=== PATIENT | male | born 1970 | race Caucasian/White ===

== ENCOUNTER → 2017-06-26 10:56 | Outpatient (CLI) | payer OTHER, SELFPAY ==
--- NOTE | 2017-06-26 11:02 | XR_ITS ---
XR chest 2V HISTORY: Cough, congestion, fever ITS.REASON: COUGH,FEVERBONE MARROW TRANSPLANT STATUS ORDERING PHYSICIAN: Bobbi Berrios PATIENT AGE: 46 years COMPARISON: 11/04/2015 FINDINGS: The cardiomediastinal silhouette and pulmonary vascularity are within normal limits. The lungs are clear without infiltrates, suspicious nodules, or pleural effusions. Calcified granuloma right upper lobe No acute bony abnormalities. IMPRESSION: No change with no acute finding
[2017-06-26 11:30] LABS: Adenovirus,PCR Not Detected (NotDetected); Bordetella Pertussis Not Detected (NotDetected); Chlamydophila Pneumoniae, PCR Not Detected (NotDetected); Coronavirus 229E Not Detected (NotDetected); Coronavirus NL63 Not Detected (NotDetected); Coronavirus OC43 Not Detected (NotDetected); Coronovirus HKU1,PCR Not Detected (NotDetected); Human Metapneumovirus Not Detected (NotDetected); Influenza A, PCR Not Detected (NotDetected); Influenza AH1, 2009 Not Detected (NotDetected); Influenza AH1, PCR Not Detected (NotDetected); Influenza B, PCR Not Detected (NotDetected); Mycoplasma Pneumoniae, PCR Not Detected (NotDected); Parainfluenza 1, PCR Not Detected (NotDetected); Parainfluenza 2, PCR Not Detected (NotDetected); Parainfluenza 3, PCR Not Detected (NotDetected); Parainfluenza 4, PCR Not Detected (NotDetected); Respiratory Syncytial Virus Not Detected (NotDetected); Rhinovirus/Enterovirus Not Detected (NotDetected)
[2017-06-26 12:03] LABS: Basophils % 1.2 % (0.1-2.0); Eosinophils # 0.1 K/mm3 (0.0-0.4); Eosinophils % 2.2 % (0.1-12.0); Hematocrit 46.6 % (42.0-52.0); Hemoglobin 15.4 g/dL (14.1-18.0); Lymphocytes % 39.5 K/mm3 (10-50); Mean Corpuscular HGB Conc 33.1 g/dL (31.8-35.4); Mean Corpuscular Volume 93.7 fl (80-94); Mean Platelet Volume 8.2 fl (7.4-10.4); Monocytes # 0.3 K/mm3 (0.1-1.0); Neutrophils # 1.2 K/mm3 (1.8-7.8); Neutrophils % 46.1 % (37.0-80.0); Platelet Count 94 K/mm3 (142-424); Red Blood Count 4.97 M/mm3 (4.60-6.20); Red Cell Distribution Width 14.6 % (11.5-17.5); White Blood Count 2.6 K/mm3 (4.8-10.8)
[2017-06-26 13:08] LABS: Blood Urea Nitrogen 18 mg/dL (7-18); Carbon Dioxide 26 mmol/L (21.0-32.0); Chloride 104 mmol/L (98-107); Creatinine,Serum 1.34 mg/dL (0.70-1.30); Estimated Glomerular Filt Rate 57 ml/min (>60); GFR (African American) 69 ML/MIN (>60); Glucose 109 mg/dL (74-106); Sodium 141 mmol/L (136-145)
[2017-06-26 13:57] LABS: Influenza AH3,PCR Detected (NotDetected)
== END ==
PROVIDERS: PCP Internal Medicine Adolescent Medicine; Visit Provider Nurse Practitioner Family
DX: R05 Cough (principal); R50.9 Fever, unspecified; Z94.81 Bone marrow transplant status
CPT/HCPCS: 36415; 71046; 80048; 85025; 87040; 87486; 87581; 87633; 87798

== ENCOUNTER → 2017-06-28 10:24 | Outpatient (CLI) | payer OTHER, SELFPAY | PROVIDERS: PCP Internal Medicine Adolescent Medicine; Visit Provider Internal Medicine Adolescent Medicine | DX: J18.1 Lobar pneumonia, unspecified organism (principal) | CPT/HCPCS: 87070; 87205 ==

== ENCOUNTER 2017-07-03 09:30 | Outpatient (CLI) | payer OTHER, SELFPAY ==
[2017-07-03 09:48] VITALS: BMI 30.9
[2017-07-03 10:25] VITALS: BP 108/76; PULSE 74; RESP 18; TEMP 36.5; O2SAT 97
[2017-07-03 10:35] VITALS: BP 112/78; PULSE 71; RESP 18; TEMP 36.4; O2SAT 97
== END 2017-07-03 10:45 | disposition home or self-care (01) ==
LOC: INF 10:43
PROVIDERS: Family Provider Internal Medicine Adolescent Medicine; PCP Internal Medicine Adolescent Medicine; Visit Provider Internal Medicine
DX: C90.00 Multiple myeloma not having achieved remission (principal)
CPT/HCPCS: 96365; J3489

== ENCOUNTER → 2017-09-04 10:15 | Outpatient (CLI) | payer OTHER, SELFPAY ==
[2017-09-04 10:31] LABS: Basophils % 0.8 % (0.1-2.0); Eosinophils # 0.4 K/mm3 (0.0-0.4); Eosinophils % 12.1 % (0.1-12.0); Hematocrit 46.5 % (42.0-52.0); Hemoglobin 15.5 g/dL (14.1-18.0); Lymphocytes # 1.7 K/mm3 (0.7-4.5); Lymphocytes % 46.5 K/mm3 (10-50); Mean Corpuscular HGB Conc 33.4 g/dL (31.8-35.4); Mean Corpuscular Hemoglobin 32.5 pg (27.0-31.2); Mean Corpuscular Volume 97.1 fl (80-94); Mean Platelet Volume 7.7 fl (7.4-10.4); Monocytes # 0.3 K/mm3 (0.1-1.0); Monocytes % 8.4 % (1.7-9.3); Neutrophils # 1.2 K/mm3 (1.8-7.8); Neutrophils % 32.3 % (37.0-80.0); Platelet Count 157 K/mm3 (142-424); Red Blood Count 4.79 M/mm3 (4.60-6.20); Red Cell Distribution Width 14.3 % (11.5-17.5); White Blood Count 3.6 K/mm3 (4.8-10.8)
[2017-09-04 11:06] LABS: Alanine Aminotransferase 26 U/L (12-78); Albumin Level 3.4 gm/dL (3.4-5.0); Albumin/Globulin Ratio 0.9 (1.1-1.8); Alkaline Phosphatase 87 U/L (46-116); Anion Gap 9.4 mEq/L (5-15); Aspartate Amino Transferase 12 U/L (15-37); Bilirubin,Total 1.3 mg/dL (0.2-1.0); Blood Urea Nitrogen 8 mg/dL (7-18); Calcium 9.1 mg/dL (8.5-10.1); Carbon Dioxide 30 mmol/L (21.0-32.0); Chloride 107 mmol/L (98-107); Estimated Glomerular Filt Rate 90 ml/min (>60); GFR (African American) 109 ML/MIN (>60); Globulin 3.7 gm/dl (1.3-3.2); Glucose 102 mg/dL (74-106); Potassium 4.4 mmoL/L (3.5-5.1); Sodium 142 mmol/L (136-145); Total Protein,Serum 7.1 gm/dL (6.4-8.2)
[2017-09-05 08:25] LABS: Immunoglobulin G, Qn 1113 mg/dL (700-1600)
[2017-09-05 10:55] LABS: Immunoglobulin A, Qn 188 mg/dL (90-386)
[2017-09-05 18:24] LABS: Immunoglobulin M, Qn 38 mg/dL (20-172)
== END ==
PROVIDERS: Visit Provider Internal Medicine
DX: C90.00 Multiple myeloma not having achieved remission (principal)
CPT/HCPCS: 36415; 80053; 82784; 85025

== ENCOUNTER 2017-10-02 10:00 | Outpatient (CLI) | payer OTHER, SELFPAY ==
[2017-10-02 10:21] VITALS: BP 129/85; PULSE 59; RESP 18; TEMP 36.7; O2SAT 99
[2017-10-02 10:35] VITALS: BP 120/75; PULSE 55; RESP 18; O2SAT 97
[2017-10-02 10:50] VITALS: BP 122/80; PULSE 57; RESP 18; O2SAT 98
== END 2017-10-02 11:00 | disposition home or self-care (01) ==
LOC: INF 10:02
PROVIDERS: Family Provider Internal Medicine Adolescent Medicine; PCP Internal Medicine Adolescent Medicine; Visit Provider Internal Medicine
DX: C90.00 Multiple myeloma not having achieved remission (principal)
CPT/HCPCS: 96365; J3489

== ENCOUNTER → 2017-12-05 12:11 | Outpatient (CLI) | payer OTHER, SELFPAY ==
[2017-12-05 12:48] LABS: Basophils % 0.8 % (0.1-2.0); Eosinophils # 0.3 K/mm3 (0.0-0.4); Eosinophils % 8.3 % (0.1-12.0); Hematocrit 47.1 % (42.0-52.0); Hemoglobin 15.1 g/dL (14.1-18.0); Lymphocytes # 1.3 K/mm3 (0.7-4.5); Lymphocytes % 37.1 K/mm3 (10-50); Mean Corpuscular HGB Conc 32.1 g/dL (31.8-35.4); Mean Corpuscular Hemoglobin 31.8 pg (27.0-31.2); Mean Corpuscular Volume 99.4 fl (80-94); Mean Platelet Volume 7.7 fl (7.4-10.4); Monocytes # 0.4 K/mm3 (0.1-1.0); Monocytes % 12.8 % (1.7-9.3); Neutrophils # 1.4 K/mm3 (1.8-7.8); Neutrophils % 40.9 % (37.0-80.0); Platelet Count 131 K/mm3 (142-424); Red Blood Count 4.74 M/mm3 (4.60-6.20); White Blood Count 3.5 K/mm3 (4.8-10.8)
[2017-12-05 13:54] LABS: Alanine Aminotransferase 42 U/L (12-78); Albumin Level 3.6 gm/dL (3.4-5.0); Albumin/Globulin Ratio 1.2 (1.1-1.8); Alkaline Phosphatase 72 U/L (46-116); Anion Gap 7.4 mEq/L (5-15); Aspartate Amino Transferase 22 U/L (15-37); Bilirubin,Total 1.5 mg/dL (0.2-1.0); Blood Urea Nitrogen 10 mg/dL (7-18); Calcium 8.7 mg/dL (8.5-10.1); Carbon Dioxide 31 mmol/L (21.0-32.0); Chloride 106 mmol/L (98-107); Creatinine,Serum 1.07 mg/dL (0.70-1.30); Estimated Glomerular Filt Rate 73 ml/min (>60); GFR (African American) 89 ML/MIN (>60); Globulin 3.1 gm/dl (1.3-3.2); Glucose 108 mg/dL (74-106); Potassium 4.4 mmoL/L (3.5-5.1); Sodium 140 mmol/L (136-145); Total Protein,Serum 6.7 gm/dL (6.4-8.2)
[2017-12-06 10:20] LABS: Immunoglobulin A, Qn 213 mg/dL (90-386); Immunoglobulin G, Qn 1037 mg/dL (700-1600)
[2017-12-07 02:34] LABS: Immunoglobulin M, Qn 28 mg/dL (20-172)
== END ==
PROVIDERS: Visit Provider Internal Medicine
DX: C90.00 Multiple myeloma not having achieved remission (principal)
CPT/HCPCS: 36415; 80053; 82784; 85025

== ENCOUNTER → 2018-01-06 13:09 | Outpatient (CLI) | payer OTHER, SELFPAY ==
--- NOTE | 2018-01-06 13:15 | XR_ITS ---
XR hand LT min 3V HISTORY: ITS.REASON: LEFT HAND PAIN ORDERING PHYSICIAN: Martha Downey PATIENT AGE: 47 years COMPARISON: None FINDINGS: No fracture or dislocation. No lytic or blastic change. There is normal mineralization.. The joint spaces are well-preserved. No significant degenerative/arthritic changes. No erosive changes evident.. There is a curious small area of sclerosis ulnar side of the radius at the radiocarpal joint and also involving the hook of the hamate and the appearance is somewhat suggestive of melorheostosis which can be a cause of joint pain. IMPRESSION: Negative for fracture, question minimal melorheostosis involvement as described
== END ==
PROVIDERS: PCP Internal Medicine Adolescent Medicine; Visit Provider Nurse Practitioner Family
DX: M79.642 Pain in left hand (principal)
CPT/HCPCS: 73130

== ENCOUNTER → 2018-01-29 08:38 | Outpatient (CLI) | payer OTHER, SELFPAY ==
[2018-01-29 08:56] LABS: Basophils % 0.8 % (0.1-2.0); Eosinophils # 0.3 K/mm3 (0.0-0.4); Eosinophils % 6.6 % (0.1-12.0); Hematocrit 47.5 % (42.0-52.0); Hemoglobin 15.6 g/dL (14.1-18.0); Lymphocytes # 1.6 K/mm3 (0.7-4.5); Lymphocytes % 36.2 K/mm3 (10-50); Mean Corpuscular HGB Conc 32.9 g/dL (31.8-35.4); Mean Corpuscular Hemoglobin 32.9 pg (27.0-31.2); Mean Corpuscular Volume 100.1 fl (80-94); Mean Platelet Volume 7.5 fl (7.4-10.4); Monocytes # 0.5 K/mm3 (0.1-1.0); Monocytes % 12.1 % (1.7-9.3); Neutrophils # 1.9 K/mm3 (1.8-7.8); Neutrophils % 44.3 % (37.0-80.0); Platelet Count 173 K/mm3 (142-424); Red Blood Count 4.75 M/mm3 (4.60-6.20); Red Cell Distribution Width 13.9 % (11.5-17.5); White Blood Count 4.3 K/mm3 (4.8-10.8)
[2018-01-29 09:08] LABS: Alanine Aminotransferase 32 U/L (12-78); Albumin Level 3.4 gm/dL (3.4-5.0); Albumin/Globulin Ratio 0.9 (1.1-1.8); Alkaline Phosphatase 87 U/L (46-116); Anion Gap 7.2 mEq/L (5-15); Aspartate Amino Transferase 9 U/L (15-37); Bilirubin,Total 1.1 mg/dL (0.2-1.0); Blood Urea Nitrogen 12 mg/dL (7-18); Calcium 9.5 mg/dL (8.5-10.1); Carbon Dioxide 33 mmol/L (21.0-32.0); Chloride 106 mmol/L (98-107); Estimated Glomerular Filt Rate 64 ml/min (>60); GFR (African American) 78 ML/MIN (>60); Globulin 3.6 gm/dl (1.3-3.2); Glucose 97 mg/dL (74-106); Potassium 4.2 mmoL/L (3.5-5.1); Sodium 142 mmol/L (136-145)
== END ==
PROVIDERS: Visit Provider Internal Medicine
DX: C90.00 Multiple myeloma not having achieved remission (principal)
CPT/HCPCS: 36415; 80053; 85025

== ENCOUNTER 2018-02-10 09:49 | Outpatient (CLI) | payer OTHER, SELFPAY ==
[2018-02-10 10:25] VITALS: BP 106/70; PULSE 61; RESP 18; TEMP 36.9; O2SAT 97
== END 2018-02-10 10:45 | disposition home or self-care (01) ==
LOC: INF 09:49
PROVIDERS: Family Provider Internal Medicine Adolescent Medicine; PCP Internal Medicine Adolescent Medicine; Visit Provider Internal Medicine
DX: C90.00 Multiple myeloma not having achieved remission (principal)
CPT/HCPCS: 96374; J3489

== ENCOUNTER → 2018-03-13 12:00 | Outpatient (CLI) | payer OTHER, SELFPAY ==
[2018-03-13 13:25] LABS: Alanine Aminotransferase 32 U/L (12-78); Albumin Level 3.4 gm/dL (3.4-5.0); Alkaline Phosphatase 96 U/L (46-116); Anion Gap 11.9 mEq/L (5-15); Aspartate Amino Transferase 13 U/L (15-37); Bilirubin,Total 0.9 mg/dL (0.2-1.0); Blood Urea Nitrogen 9 mg/dL (7-18); Calcium 8.7 mg/dL (8.5-10.1); Carbon Dioxide 27 mmol/L (21.0-32.0); Chloride 106 mmol/L (98-107); Creatinine,Serum 0.96 mg/dL (0.70-1.30); Estimated Glomerular Filt Rate 83 ml/min (>60); GFR (African American) 101 ML/MIN (>60); Globulin 3.3 gm/dl (1.3-3.2); Glucose 113 mg/dL (74-106); Potassium 3.9 mmoL/L (3.5-5.1); Sodium 141 mmol/L (136-145); Total Protein,Serum 6.7 gm/dL (6.4-8.2)
[2018-03-13 15:08] LABS: Basophils % 0.9 % (0.1-2.0); Eosinophils # 0.3 K/mm3 (0.0-0.4); Eosinophils % 7.1 % (0.1-12.0); Hematocrit 42.9 % (42.0-52.0); Hemoglobin 14.4 g/dL (14.1-18.0); Lymphocytes # 1.3 K/mm3 (0.7-4.5); Lymphocytes % 35.2 K/mm3 (10-50); Mean Corpuscular HGB Conc 33.7 g/dL (31.8-35.4); Mean Corpuscular Hemoglobin 33.2 pg (27.0-31.2); Mean Corpuscular Volume 98.5 fl (80-94); Mean Platelet Volume 7.4 fl (7.4-10.4); Monocytes # 0.4 K/mm3 (0.1-1.0); Monocytes % 10.3 % (1.7-9.3); Neutrophils # 1.7 K/mm3 (1.8-7.8); Neutrophils % 46.4 % (37.0-80.0); Platelet Count 143 K/mm3 (142-424); Red Blood Count 4.35 M/mm3 (4.60-6.20); Red Cell Distribution Width 13.4 % (11.5-17.5); White Blood Count 3.7 K/mm3 (4.8-10.8)
[2018-03-14 12:09] LABS: Free Kappa Lt Chains 23.4 mg/L (3.3-19.4); Free Lambda Lt Chains 24.9 mg/L (5.7-26.3)
[2018-03-16 16:17] LABS: Albumin 3.4 g/dL (2.9-4.4); Alpha-1-Globulin 0.2 g/dL (0.0-0.4); Alpha-2-Globulin 0.7 g/dL (0.4-1.0); Gamma Globulin 1.2 g/dL (0.4-1.8); Immunoglobulin A, Qn 220 mg/dL (90-386); Immunoglobulin G, Qn 1134 mg/dL (700-1600); Protein, Total 6.6 g/dL (6.0-8.5)
[2018-03-17 06:11] LABS: Immunoglobulin M, Qn 27 mg/dL (20-172)
== END ==
PROVIDERS: PCP Internal Medicine Adolescent Medicine; Visit Provider Internal Medicine Medical Oncology
DX: C90.00 Multiple myeloma not having achieved remission (principal)
CPT/HCPCS: 36415; 80053; 82784; 83883; 84155; 84165; 85025; 86334

== ENCOUNTER → 2018-04-10 09:51 | Outpatient (CLI) | payer OTHER, SELFPAY ==
[2018-04-10 10:30] LABS: Basophils % 0.4 % (0.1-2.0); Eosinophils # 0.2 K/mm3 (0.0-0.4); Eosinophils % 6.1 % (0.1-12.0); Hematocrit 42.4 % (42.0-52.0); Hemoglobin 14.5 g/dL (14.1-18.0); Lymphocytes # 1.3 K/mm3 (0.7-4.5); Lymphocytes % 32.2 K/mm3 (10-50); Mean Corpuscular HGB Conc 34.1 g/dL (31.8-35.4); Mean Corpuscular Hemoglobin 33.5 pg (27.0-31.2); Mean Corpuscular Volume 98.4 fl (80-94); Mean Platelet Volume 7.2 fl (7.4-10.4); Monocytes # 0.5 K/mm3 (0.1-1.0); Monocytes % 13.4 % (1.7-9.3); Neutrophils # 1.9 K/mm3 (1.8-7.8); Platelet Count 117 K/mm3 (142-424); Red Blood Count 4.31 M/mm3 (4.60-6.20); Red Cell Distribution Width 13.7 % (11.5-17.5); White Blood Count 3.9 K/mm3 (4.8-10.8)
[2018-04-10 11:24] LABS: Chol/HDL Ratio 4.1 (1-3.5); Cholesterol 150 mg/dL (140-200); HDL Cholesterol 37 mg/dL (27-67); LDL Cholesterol 94 mg/dL (0-130); Triglycerides 94 mg/dL (30-200); VLDL Cholesterol 19 mg/dL (0-40)
[2018-04-10 11:28] LABS: Alanine Aminotransferase 34 U/L (12-78); Albumin Level 3.5 gm/dL (3.4-5.0); Albumin/Globulin Ratio 1.1 (1.1-1.8); Alkaline Phosphatase 85 U/L (46-116); Anion Gap 9.6 mEq/L (5-15); Aspartate Amino Transferase 14 U/L (15-37); Bilirubin,Total 1.8 mg/dL (0.2-1.0); Blood Urea Nitrogen 9 mg/dL (7-18); Calcium 8.9 mg/dL (8.5-10.1); Carbon Dioxide 29 mmol/L (21.0-32.0); Chloride 106 mmol/L (98-107); Creatinine,Serum 0.93 mg/dL (0.70-1.30); Estimated Glomerular Filt Rate 86 ml/min (>60); GFR (African American) 104 ML/MIN (>60); Globulin 3.3 gm/dl (1.3-3.2); Glucose 96 mg/dL (74-106); Potassium 3.6 mmoL/L (3.5-5.1); Sodium 141 mmol/L (136-145); Thyroid Stimulating Hormone 2.43 uIU/ml (0.358-3.740); Total Protein,Serum 6.8 gm/dL (6.4-8.2)
[2018-04-10 12:54] LABS: Hemoglobin A1C 5.2 % (0.0-7.0)
[2018-04-12 09:27] LABS: Folate 11.1 ng/mL (>3.0)
== END ==
PROVIDERS: PCP Internal Medicine Adolescent Medicine; Visit Provider Specialist
DX: C90.00 Multiple myeloma not having achieved remission (principal); G62.9 Polyneuropathy, unspecified; R73.9 Hyperglycemia, unspecified; R29.898 Other symptoms and signs involving the musculoskeletal system; M79.604 Pain in right leg; M79.605 Pain in left leg; M79.671 Pain in right foot; M79.672 Pain in left foot; R26.9 Unspecified abnormalities of gait and mobility
CPT/HCPCS: 36415; 80053; 80061; 82746; 83036; 84443; 85025

== ENCOUNTER → 2018-04-27 10:33 | Outpatient (CLI) | payer OTHER, SELFPAY | PROVIDERS: Visit Provider Podiatrist | DX: L60.8 Other nail disorders (principal) | CPT/HCPCS: 87102; 87206; 87220 ==

== ENCOUNTER → 2018-05-04 08:08 | Outpatient (POV) | payer OTHER, SELFPAY | PROVIDERS: Visit Provider Specialist | DX: M79.604 Pain in right leg (principal); M79.605 Pain in left leg; M79.671 Pain in right foot; M79.672 Pain in left foot; R26.9 Unspecified abnormalities of gait and mobility; R29.898 Other symptoms and signs involving the musculoskeletal system | CPT/HCPCS: 95886; 95910 ==

== ENCOUNTER → 2018-05-14 10:19 | Outpatient (CLI) | payer OTHER, SELFPAY ==
[2018-05-14 10:41] LABS: Basophils % 0.5 % (0.1-2.0); Eosinophils # 0.2 K/mm3 (0.0-0.4); Eosinophils % 5.8 % (0.1-12.0); Hematocrit 45.4 % (42.0-52.0); Lymphocytes # 1.6 K/mm3 (0.7-4.5); Lymphocytes % 39.5 % (10-50); Mean Corpuscular HGB Conc 33.1 g/dL (31.8-35.4); Mean Corpuscular Hemoglobin 32.7 pg (27.0-31.2); Mean Corpuscular Volume 98.8 fl (80-94); Mean Platelet Volume 7.3 fl (7.4-10.4); Monocytes # 0.5 K/mm3 (0.1-1.0); Neutrophils # 1.7 K/mm3 (1.8-7.8); Neutrophils % 41.2 % (37.0-80.0); Platelet Count 135 K/mm3 (142-424); Red Blood Count 4.59 M/mm3 (4.60-6.20); Red Cell Distribution Width 13.9 % (11.5-17.5); White Blood Count 4.1 K/mm3 (4.8-10.8)
[2018-05-14 12:45] LABS: Alanine Aminotransferase 36 U/L (12-78); Albumin Level 3.4 gm/dL (3.4-5.0); Albumin/Globulin Ratio 1.1 (1.1-1.8); Alkaline Phosphatase 67 U/L (46-116); Anion Gap 12.1 mEq/L (5-15); Aspartate Amino Transferase 13 U/L (15-37); Bilirubin,Total 1.2 mg/dL (0.2-1.0); Blood Urea Nitrogen 12 mg/dL (7-18); Calcium 8.3 mg/dL (8.5-10.1); Carbon Dioxide 29 mmol/L (21.0-32.0); Chloride 105 mmol/L (98-107); Creatinine,Serum 0.89 mg/dL (0.70-1.30); Estimated Glomerular Filt Rate 91 ml/min (>60); GFR (African American) 110 ML/MIN (>60); Globulin 3.2 gm/dl (1.3-3.2); Glucose 85 mg/dL (74-106); Potassium 4.1 mmoL/L (3.5-5.1); Sodium 142 mmol/L (136-145); Total Protein,Serum 6.6 gm/dL (6.4-8.2)
[2018-05-15 10:59] LABS: Vitamin B12 282 pg/mL (232-1245)
== END ==
PROVIDERS: Internal Medicine Medical Oncology; Visit Provider Specialist
DX: G62.9 Polyneuropathy, unspecified (principal); C90.00 Multiple myeloma not having achieved remission
CPT/HCPCS: 36415; 80053; 82607; 85025

== ENCOUNTER → 2018-06-05 11:50 | Outpatient (CLI) | payer OTHER, SELFPAY ==
[2018-06-05 12:42] LABS: Basophils % 0.9 % (0.1-2.0); Eosinophils # 0.1 K/mm3 (0.0-0.4); Eosinophils % 4.5 % (0.1-12.0); Hematocrit 47.5 % (42.0-52.0); Hemoglobin 15.2 g/dL (14.1-18.0); Lymphocytes # 1.3 K/mm3 (0.7-4.5); Lymphocytes % 42.6 % (10-50); Mean Corpuscular HGB Conc 32.1 g/dL (31.8-35.4); Mean Corpuscular Hemoglobin 32.3 pg (27.0-31.2); Mean Corpuscular Volume 100.6 fl (80-94); Mean Platelet Volume 7.4 fl (7.4-10.4); Monocytes # 0.3 K/mm3 (0.1-1.0); Monocytes % 9.3 % (1.7-9.3); Neutrophils # 1.3 K/mm3 (1.8-7.8); Neutrophils % 42.7 % (37.0-80.0); Platelet Count 139 K/mm3 (142-424); Red Blood Count 4.72 M/mm3 (4.60-6.20); Red Cell Distribution Width 13.8 % (11.5-17.5); White Blood Count 3.1 K/mm3 (4.8-10.8)
[2018-06-05 13:48] LABS: Alanine Aminotransferase 40 U/L (12-78); Albumin Level 3.6 gm/dL (3.4-5.0); Albumin/Globulin Ratio 1.1 (1.1-1.8); Alkaline Phosphatase 77 U/L (46-116); Anion Gap 10.2 mEq/L (5-15); Aspartate Amino Transferase 14 U/L (15-37); Bilirubin,Total 1.2 mg/dL (0.2-1.0); Blood Urea Nitrogen 9 mg/dL (7-18); Calcium 8.5 mg/dL (8.5-10.1); Carbon Dioxide 28 mmol/L (21.0-32.0); Chloride 106 mmol/L (98-107); Creatinine,Serum 0.92 mg/dL (0.70-1.30); Estimated Glomerular Filt Rate 87 ml/min (>60); GFR (African American) 106 ML/MIN (>60); Globulin 3.4 gm/dl (1.3-3.2); Glucose 94 mg/dL (74-106); Potassium 4.2 mmoL/L (3.5-5.1); Sodium 140 mmol/L (136-145)
[2018-06-06 16:15] LABS: Free Kappa Lt Chains 19.4 mg/L (3.3-19.4)
[2018-06-08 12:11] LABS: Immunoglobulin A, Qn 261 mg/dL (90-386); Immunoglobulin G, Qn 1201 mg/dL (700-1600)
[2018-06-08 13:09] LABS: Albumin 3.9 g/dL (2.9-4.4); Alpha-1-Globulin 0.2 g/dL (0.0-0.4); Alpha-2-Globulin 0.6 g/dL (0.4-1.0); Gamma Globulin 1.2 g/dL (0.4-1.8)
[2018-06-08 14:10] LABS: Immunoglobulin M, Qn 34 mg/dL (20-172)
== END ==
PROVIDERS: PCP Internal Medicine Adolescent Medicine; Visit Provider Internal Medicine Medical Oncology
DX: C90.00 Multiple myeloma not having achieved remission (principal)
CPT/HCPCS: 36415; 80053; 82784; 83883; 84155; 84165; 85025; 86334

== ENCOUNTER → 2018-07-09 10:26 | Outpatient (CLI) | payer OTHER, SELFPAY ==
[2018-07-09 13:01] LABS: Basophils % 0.4 % (0.1-2.0); Eosinophils # 0.1 K/mm3 (0.0-0.4); Eosinophils % 1.5 % (0.1-12.0); Hematocrit 49.6 % (42.0-52.0); Hemoglobin 15.8 g/dL (14.1-18.0); Lymphocytes # 1.5 K/mm3 (0.7-4.5); Lymphocytes % 38.6 % (10-50); Mean Corpuscular HGB Conc 31.8 g/dL (31.8-35.4); Mean Corpuscular Hemoglobin 32.5 pg (27.0-31.2); Mean Corpuscular Volume 102.2 fl (80-94); Mean Platelet Volume 7.4 fl (7.4-10.4); Monocytes # 0.3 K/mm3 (0.1-1.0); Monocytes % 8.3 % (1.7-9.3); Neutrophils % 51.1 % (37.0-80.0); Platelet Count 149 K/mm3 (142-424); Red Blood Count 4.85 M/mm3 (4.60-6.20); Red Cell Distribution Width 13.9 % (11.5-17.5); White Blood Count 3.8 K/mm3 (4.8-10.8)
[2018-07-09 13:37] LABS: Alanine Aminotransferase 30 U/L (12-78); Albumin Level 3.6 gm/dL (3.4-5.0); Albumin/Globulin Ratio 1.1 (1.1-1.8); Alkaline Phosphatase 88 U/L (46-116); Anion Gap 14.1 mEq/L (5-15); Aspartate Amino Transferase 12 U/L (15-37); Bilirubin,Total 1.5 mg/dL (0.2-1.0); Blood Urea Nitrogen 14 mg/dL (7-18); Calcium 9.5 mg/dL (8.5-10.1); Carbon Dioxide 26 mmol/L (21.0-32.0); Chloride 107 mmol/L (98-107); Creatinine,Serum 1.13 mg/dL (0.70-1.30); Estimated Glomerular Filt Rate 69 ml/min (>60); GFR (African American) 83 ML/MIN (>60); Globulin 3.4 gm/dl (1.3-3.2); Glucose 113 mg/dL (74-106); Potassium 4.1 mmoL/L (3.5-5.1); Sodium 143 mmol/L (136-145)
== END ==
PROVIDERS: Visit Provider Internal Medicine Medical Oncology
DX: C90.00 Multiple myeloma not having achieved remission (principal)
CPT/HCPCS: 36415; 80053; 85025

== ENCOUNTER → 2018-08-06 10:02 | Outpatient (CLI) | payer MEDICARE, SELFPAY ==
[2018-08-06 10:51] LABS: Alanine Aminotransferase 47 U/L (12-78); Albumin Level 3.4 gm/dL (3.4-5.0); Alkaline Phosphatase 76 U/L (46-116); Anion Gap 8.7 mEq/L (5-15); Aspartate Amino Transferase 16 U/L (15-37); Blood Urea Nitrogen 11 mg/dL (7-18); Calcium 8.7 mg/dL (8.5-10.1); Carbon Dioxide 30 mmol/L (21.0-32.0); Chloride 108 mmol/L (98-107); Creatinine,Serum 0.92 mg/dL (0.70-1.30); Estimated Glomerular Filt Rate 87 ml/min (>60); GFR (African American) 106 ML/MIN (>60); Globulin 3.5 gm/dl (1.3-3.2); Glucose 99 mg/dL (74-106); Potassium 3.7 mmoL/L (3.5-5.1); Sodium 143 mmol/L (136-145); Total Protein,Serum 6.9 gm/dL (6.4-8.2)
[2018-08-06 10:59] LABS: Basophils % 0.7 % (0.1-2.0); Eosinophils # 0.1 K/mm3 (0.0-0.4); Eosinophils % 3.2 % (0.1-12.0); Hematocrit 45.1 % (42.0-52.0); Hemoglobin 15.4 g/dL (14.1-18.0); Lymphocytes # 1.4 K/mm3 (0.7-4.5); Mean Corpuscular HGB Conc 34.1 g/dL (31.8-35.4); Mean Corpuscular Hemoglobin 33.3 pg (27.0-31.2); Mean Corpuscular Volume 97.6 fl (80-94); Mean Platelet Volume 7.4 fl (7.4-10.4); Monocytes # 0.5 K/mm3 (0.1-1.0); Monocytes % 12.3 % (1.7-9.3); Neutrophils # 1.8 K/mm3 (1.8-7.8); Neutrophils % 47.8 % (37.0-80.0); Platelet Count 133 K/mm3 (142-424); Red Blood Count 4.62 M/mm3 (4.60-6.20); Red Cell Distribution Width 14.2 % (11.5-17.5); White Blood Count 3.8 K/mm3 (4.8-10.8)
[2018-08-07 15:24] LABS: Albumin 3.6 g/dL (2.9-4.4); Alpha-1-Globulin 0.2 g/dL (0.0-0.4); Alpha-2-Globulin 0.6 g/dL (0.4-1.0); Gamma Globulin 0.9 g/dL (0.4-1.8); Protein, Total 6.2 g/dL (6.0-8.5)
[2018-08-07 16:36] LABS: Free Kappa Lt Chains 18.3 mg/L (3.3-19.4); Free Lambda Lt Chains 15.3 mg/L (5.7-26.3)
[2018-08-07 17:18] LABS: Immunoglobulin A, Qn 223 mg/dL (90-386); Immunoglobulin G, Qn 918 mg/dL (700-1600)
[2018-08-07 17:31] LABS: Immunoglobulin M, Qn 25 mg/dL (20-172)
== END ==
PROVIDERS: Visit Provider Internal Medicine Medical Oncology
DX: C90.00 Multiple myeloma not having achieved remission (principal)
CPT/HCPCS: 36415; 80053; 82784; 83883; 84155; 84165; 85025; 86334

== ENCOUNTER → 2018-10-01 10:00 | Outpatient (CLI) | payer MEDICARE, SELFPAY ==
[2018-10-01 10:29] LABS: Basophils % 0.5 % (0.1-2.0); Eosinophils # 0.2 K/mm3 (0.0-0.4); Eosinophils % 4.2 % (0.1-12.0); Hemoglobin 14.9 g/dL (14.1-18.0); Lymphocytes # 1.1 K/mm3 (0.7-4.5); Mean Corpuscular HGB Conc 33.9 g/dL (31.8-35.4); Mean Corpuscular Hemoglobin 33.8 pg (27.0-31.2); Mean Corpuscular Volume 99.5 fl (80-94); Monocytes # 0.3 K/mm3 (0.1-1.0); Monocytes % 7.4 % (1.7-9.3); Neutrophils # 2.8 K/mm3 (1.8-7.8); Neutrophils % 62.9 % (37.0-80.0); Platelet Count 118 K/mm3 (142-424); Red Blood Count 4.42 M/mm3 (4.60-6.20); Red Cell Distribution Width 13.8 % (11.5-17.5); White Blood Count 4.4 K/mm3 (4.8-10.8)
[2018-10-01 13:45] LABS: Alanine Aminotransferase 40 U/L (12-78); Albumin Level 3.4 gm/dL (3.4-5.0); Alkaline Phosphatase 75 U/L (46-116); Anion Gap 10.3 mEq/L (5-15); Aspartate Amino Transferase 9 U/L (15-37); Blood Urea Nitrogen 13 mg/dL (7-18); Calcium 8.8 mg/dL (8.5-10.1); Carbon Dioxide 28 mmol/L (21.0-32.0); Chloride 107 mmol/L (98-107); Creatinine,Serum 0.92 mg/dL (0.70-1.30); Estimated Glomerular Filt Rate 87 ml/min (>60); GFR (African American) 106 ML/MIN (>60); Globulin 3.3 gm/dl (1.3-3.2); Glucose 98 mg/dL (74-106); Potassium 4.3 mmoL/L (3.5-5.1); Sodium 141 mmol/L (136-145); Total Protein,Serum 6.7 gm/dL (6.4-8.2)
== END ==
PROVIDERS: Visit Provider Internal Medicine Medical Oncology
DX: C90.00 Multiple myeloma not having achieved remission (principal)
CPT/HCPCS: 36415; 80053; 85025

== ENCOUNTER → 2018-11-05 10:28 | Outpatient (CLI) | payer MEDICARE, SELFPAY ==
[2018-11-05 11:10] LABS: Basophils % 0.7 % (0.1-2.0); Eosinophils # 0.1 K/mm3 (0.0-0.4); Eosinophils % 3.4 % (0.1-12.0); Hematocrit 44.5 % (42.0-52.0); Hemoglobin 15.1 g/dL (14.1-18.0); Lymphocytes # 1.3 K/mm3 (0.7-4.5); Lymphocytes % 32.2 % (10-50); Mean Corpuscular HGB Conc 33.9 g/dL (31.8-35.4); Mean Corpuscular Hemoglobin 33.3 pg (27.0-31.2); Mean Corpuscular Volume 98.3 fl (80-94); Mean Platelet Volume 7.7 fl (7.4-10.4); Monocytes # 0.4 K/mm3 (0.1-1.0); Monocytes % 8.9 % (1.7-9.3); Neutrophils # 2.2 K/mm3 (1.8-7.8); Neutrophils % 54.8 % (37.0-80.0); Platelet Count 140 K/mm3 (142-424); Red Blood Count 4.53 M/mm3 (4.60-6.20); Red Cell Distribution Width 13.6 % (11.5-17.5); White Blood Count 4.1 K/mm3 (4.8-10.8)
[2018-11-05 12:49] LABS: Alanine Aminotransferase 46 U/L (12-78); Albumin Level 3.4 gm/dL (3.4-5.0); Albumin/Globulin Ratio 1.1 (1.1-1.8); Alkaline Phosphatase 79 U/L (46-116); Anion Gap 12.9 mEq/L (5-15); Aspartate Amino Transferase 18 U/L (15-37); Bilirubin,Total 1.6 mg/dL (0.2-1.0); Blood Urea Nitrogen 14 mg/dL (7-18); Calcium 8.6 mg/dL (8.5-10.1); Carbon Dioxide 28 mmol/L (21.0-32.0); Chloride 108 mmol/L (98-107); Creatinine,Serum 0.97 mg/dL (0.70-1.30); Estimated Glomerular Filt Rate 82 ml/min (>60); GFR (African American) 99 ML/MIN (>60); Glucose 89 mg/dL (74-106); Potassium 3.9 mmoL/L (3.5-5.1); Sodium 145 mmol/L (136-145); Total Protein,Serum 6.4 gm/dL (6.4-8.2)
[2018-11-06 14:16] LABS: Albumin 3.2 g/dL (2.9-4.4); Alpha-1-Globulin 0.3 g/dL (0.0-0.4); Alpha-2-Globulin 0.7 g/dL (0.4-1.0); Free Kappa Lt Chains 17.9 mg/L (3.3-19.4); Free Lambda Lt Chains 15.9 mg/L (5.7-26.3); Gamma Globulin 1.1 g/dL (0.4-1.8); Immunoglobulin A, Qn 231 mg/dL (90-386); Immunoglobulin G, Qn 910 mg/dL (700-1600); Immunoglobulin M, Qn 26 mg/dL (20-172); Protein, Total 6.3 g/dL (6.0-8.5)
== END ==
PROVIDERS: Visit Provider Internal Medicine Medical Oncology
DX: C90.00 Multiple myeloma not having achieved remission (principal)
CPT/HCPCS: 36415; 80053; 82784; 83883; 84155; 84165; 85025; 86334

== ENCOUNTER → 2018-12-23 10:24 | Outpatient (CLI) | payer MEDICARE, SELFPAY ==
[2018-12-23 10:43] LABS: Basophils % 0.7 % (0.1-2.0); Eosinophils # 0.4 K/mm3 (0.0-0.4); Eosinophils % 13.2 % (0.1-12.0); Hematocrit 46.1 % (42.0-52.0); Hemoglobin 14.4 g/dL (14.1-18.0); Lymphocytes # 1.1 K/mm3 (0.7-4.5); Lymphocytes % 33.5 % (10-50); Mean Corpuscular HGB Conc 31.3 g/dL (31.8-35.4); Mean Corpuscular Hemoglobin 32.6 pg (27.0-31.2); Mean Platelet Volume 8.3 fl (7.4-10.4); Monocytes # 0.3 K/mm3 (0.1-1.0); Monocytes % 9.5 % (1.7-9.3); Neutrophils # 1.4 K/mm3 (1.8-7.8); Neutrophils % 43.1 % (37.0-80.0); Platelet Count 116 K/mm3 (142-424); Red Blood Count 4.43 M/mm3 (4.60-6.20); Red Cell Distribution Width 14.1 % (11.5-17.5); White Blood Count 3.3 K/mm3 (4.8-10.8)
[2018-12-23 12:18] LABS: Alanine Aminotransferase 42 U/L (12-78); Albumin Level 3.1 gm/dL (3.4-5.0); Alkaline Phosphatase 89 U/L (46-116); Anion Gap 10.8 mEq/L (5-15); Aspartate Amino Transferase 24 U/L (15-37); Bilirubin,Total 1.4 mg/dL (0.2-1.0); Blood Urea Nitrogen 10 mg/dL (7-18); Calcium 8.5 mg/dL (8.5-10.1); Carbon Dioxide 29 mmol/L (21.0-32.0); Chloride 107 mmol/L (98-107); Estimated Glomerular Filt Rate 79 ml/min (>60); GFR (African American) 96 ML/MIN (>60); Glucose 133 mg/dL (74-106); Potassium 3.8 mmoL/L (3.5-5.1); Sodium 143 mmol/L (136-145); Total Protein,Serum 6.1 gm/dL (6.4-8.2)
== END ==
PROVIDERS: Visit Provider Internal Medicine Medical Oncology
DX: C90.01 Multiple myeloma in remission (principal)
CPT/HCPCS: 36415; 80053; 85025

== ENCOUNTER → 2019-02-11 08:44 | Outpatient (CLI) | payer MEDICARE, SELFPAY ==
[2019-02-11 09:18] LABS: Basophils % 0.7 % (0.1-2.0); Eosinophils # 0.1 K/mm3 (0.0-0.4); Eosinophils % 4.4 % (0.1-12.0); Hematocrit 43.3 % (42.0-52.0); Hemoglobin 14.3 g/dL (14.1-18.0); Lymphocytes # 1.3 K/mm3 (0.7-4.5); Lymphocytes % 43.7 % (10-50); Mean Corpuscular Hemoglobin 33.1 pg (27.0-31.2); Mean Corpuscular Volume 100.2 fl (80-94); Mean Platelet Volume 7.2 fl (7.4-10.4); Monocytes # 0.3 K/mm3 (0.1-1.0); Monocytes % 9.8 % (1.7-9.3); Neutrophils # 1.2 K/mm3 (1.8-7.8); Neutrophils % 41.4 % (37.0-80.0); Platelet Count 140 K/mm3 (142-424); Red Blood Count 4.32 M/mm3 (4.60-6.20); Red Cell Distribution Width 13.8 % (11.5-17.5); White Blood Count 2.9 K/mm3 (4.8-10.8)
[2019-02-11 16:40] LABS: Alanine Aminotransferase 37 U/L (12-78); Albumin Level 3.5 gm/dL (3.4-5.0); Albumin/Globulin Ratio 1.2 (1.1-1.8); Alkaline Phosphatase 81 U/L (46-116); Anion Gap 10.4 mEq/L (5-15); Aspartate Amino Transferase 20 U/L (15-37); Bilirubin,Total 1.1 mg/dL (0.2-1.0); Blood Urea Nitrogen 13 mg/dL (7-18); Calcium 8.7 mg/dL (8.5-10.1); Carbon Dioxide 29 mmol/L (21.0-32.0); Chloride 108 mmol/L (98-107); Creatinine,Serum 0.86 mg/dL (0.70-1.30); Estimated Glomerular Filt Rate 94 ml/min (>60); GFR (African American) 114 ML/MIN (>60); Glucose 92 mg/dL (74-106); Potassium 4.4 mmoL/L (3.5-5.1); Sodium 143 mmol/L (136-145); Total Protein,Serum 6.5 gm/dL (6.4-8.2)
[2019-02-12 14:25] LABS: Albumin 3.4 g/dL (2.9-4.4); Alpha-1-Globulin 0.2 g/dL (0.0-0.4); Alpha-2-Globulin 0.6 g/dL (0.4-1.0); Protein, Total 6.3 g/dL (6.0-8.5)
[2019-02-12 15:12] LABS: Immunoglobulin A, Qn 227 mg/dL (90-386); Immunoglobulin G, Qn 1042 mg/dL (700-1600)
[2019-02-13 13:08] LABS: Free Kappa Lt Chains 14.9 mg/L (3.3-19.4); Free Lambda Lt Chains 15.9 mg/L (5.7-26.3)
[2019-02-13 22:25] LABS: Immunoglobulin M, Qn 24 mg/dL (20-172)
== END ==
PROVIDERS: Visit Provider Internal Medicine Medical Oncology
DX: C90.01 Multiple myeloma in remission (principal)
CPT/HCPCS: 36415; 80053; 82784; 83883; 84155; 84165; 85025; 86334

== ENCOUNTER → 2019-03-25 08:52 | Outpatient (CLI) | payer MEDICARE, SELFPAY ==
[2019-03-25 09:19] LABS: Eosinophils # 0.1 K/mm3 (0.0-0.4); Hemoglobin 14.3 g/dL (14.1-18.0); Lymphocytes # 1.3 K/mm3 (0.7-4.5); Lymphocytes % 46.3 % (10-50); Mean Corpuscular Hemoglobin 31.9 pg (27.0-31.2); Mean Corpuscular Volume 102.9 fl (80-94); Mean Platelet Volume 8.1 fl (7.4-10.4); Monocytes # 0.3 K/mm3 (0.1-1.0); Monocytes % 10.5 % (1.7-9.3); Neutrophils % 37.2 % (37.0-80.0); Platelet Count 142 K/mm3 (142-424); Red Blood Count 4.47 M/mm3 (4.60-6.20); Red Cell Distribution Width 14.4 % (11.5-17.5); White Blood Count 2.8 K/mm3 (4.8-10.8)
[2019-03-25 09:54] LABS: Alanine Aminotransferase 27 U/L (12-78); Albumin Level 3.5 gm/dL (3.4-5.0); Albumin/Globulin Ratio 1.1 (1.1-1.8); Alkaline Phosphatase 90 U/L (46-116); Anion Gap 11.1 mEq/L (5-15); Aspartate Amino Transferase 13 U/L (15-37); Bilirubin,Total 1.5 mg/dL (0.2-1.0); Blood Urea Nitrogen 12 mg/dL (7-18); Calcium 8.7 mg/dL (8.5-10.1); Carbon Dioxide 29 mmol/L (21.0-32.0); Chloride 108 mmol/L (98-107); Creatinine,Serum 0.82 mg/dL (0.70-1.30); Estimated Glomerular Filt Rate 99 ml/min (>60); GFR (African American) 120 ML/MIN (>60); Globulin 3.1 gm/dl (1.3-3.2); Glucose 100 mg/dL (74-106); Potassium 4.1 mmoL/L (3.5-5.1); Sodium 144 mmol/L (136-145); Total Protein,Serum 6.6 gm/dL (6.4-8.2)
[2019-03-26 14:26] LABS: Immunoglobulin A, Qn 233 mg/dL (90-386); Immunoglobulin G, Qn 1056 mg/dL (700-1600)
[2019-03-26 15:10] LABS: Albumin 3.3 g/dL (2.9-4.4); Alpha-1-Globulin 0.2 g/dL (0.0-0.4); Alpha-2-Globulin 0.7 g/dL (0.4-1.0); Free Kappa Lt Chains 14.7 mg/L (3.3-19.4); Free Lambda Lt Chains 14.6 mg/L (5.7-26.3); Protein, Total 6.2 g/dL (6.0-8.5)
[2019-03-26 17:06] LABS: Immunoglobulin M, Qn 32 mg/dL (20-172)
== END ==
PROVIDERS: PCP Internal Medicine Adolescent Medicine; Visit Provider Internal Medicine Medical Oncology
DX: C90.00 Multiple myeloma not having achieved remission (principal)
CPT/HCPCS: 36415; 80053; 82784; 83883; 84155; 84165; 85025; 86334

== ENCOUNTER → 2019-04-29 10:02 | Outpatient (CLI) | payer MEDICARE, SELFPAY ==
[2019-04-29 11:02] LABS: Basophils % 0.9 % (0.1-2.0); Eosinophils # 0.1 K/mm3 (0.0-0.4); Hematocrit 44.4 % (42.0-52.0); Lymphocytes # 1.4 K/mm3 (0.7-4.5); Lymphocytes % 39.1 % (10-50); Mean Corpuscular HGB Conc 33.8 g/dL (31.8-35.4); Mean Corpuscular Hemoglobin 33.7 pg (27.0-31.2); Mean Corpuscular Volume 99.5 fl (80-94); Mean Platelet Volume 7.9 fl (7.4-10.4); Monocytes # 0.4 K/mm3 (0.1-1.0); Neutrophils # 1.6 K/mm3 (1.8-7.8); Platelet Count 148 K/mm3 (142-424); Red Blood Count 4.47 M/mm3 (4.60-6.20); Red Cell Distribution Width 13.3 % (11.5-17.5); White Blood Count 3.5 K/mm3 (4.8-10.8)
[2019-04-29 13:50] LABS: Alanine Aminotransferase 24 U/L (12-78); Albumin Level 3.4 gm/dL (3.4-5.0); Albumin/Globulin Ratio 1.1 (1.1-1.8); Alkaline Phosphatase 93 U/L (46-116); Anion Gap 8.1 mEq/L (5-15); Aspartate Amino Transferase 12 U/L (15-37); Bilirubin,Total 1.3 mg/dL (0.2-1.0); Blood Urea Nitrogen 10 mg/dL (7-18); Calcium 8.7 mg/dL (8.5-10.1); Carbon Dioxide 30 mmol/L (21.0-32.0); Chloride 107 mmol/L (98-107); Creatinine,Serum 0.82 mg/dL (0.70-1.30); Estimated Glomerular Filt Rate 99 ml/min (>60); GFR (African American) 120 ML/MIN (>60); Globulin 3.2 gm/dl (1.3-3.2); Glucose 92 mg/dL (74-106); Potassium 4.1 mmoL/L (3.5-5.1); Sodium 141 mmol/L (136-145); Total Protein,Serum 6.6 gm/dL (6.4-8.2)
[2019-04-30 15:12] LABS: Albumin 3.4 g/dL (2.9-4.4); Alpha-1-Globulin 0.2 g/dL (0.0-0.4); Alpha-2-Globulin 0.7 g/dL (0.4-1.0); Free Kappa Lt Chains 16.4 mg/L (3.3-19.4); Free Lambda Lt Chains 16.4 mg/L (5.7-26.3); Gamma Globulin 1.1 g/dL (0.4-1.8); Immunoglobulin A, Qn 248 mg/dL (90-386); Immunoglobulin G, Qn 1225 mg/dL (700-1600); Immunoglobulin M, Qn 31 mg/dL (20-172); Protein, Total 6.5 g/dL (6.0-8.5)
== END ==
PROVIDERS: Visit Provider Internal Medicine Medical Oncology
DX: C90.00 Multiple myeloma not having achieved remission (principal)
CPT/HCPCS: 36415; 80053; 82784; 83883; 84155; 84165; 85025; 86334

== ENCOUNTER → 2019-07-01 11:12 | Outpatient (CLI) | payer MEDICARE, SELFPAY ==
[2019-07-01 11:41] LABS: Eosinophils # 0.2 K/mm3 (0.0-0.4); Eosinophils % 5.5 % (0.1-12.0); Hematocrit 47.7 % (42.0-52.0); Hemoglobin 15.4 g/dL (14.1-18.0); Lymphocytes # 1.5 K/mm3 (0.7-4.5); Lymphocytes % 36.9 % (10-50); Mean Corpuscular HGB Conc 32.2 g/dL (31.8-35.4); Mean Corpuscular Hemoglobin 32.2 pg (27.0-31.2); Mean Corpuscular Volume 99.9 fl (80-94); Mean Platelet Volume 7.9 fl (7.4-10.4); Monocytes # 0.4 K/mm3 (0.1-1.0); Neutrophils # 1.8 K/mm3 (1.8-7.8); Neutrophils % 45.6 % (37.0-80.0); Platelet Count 141 K/mm3 (142-424); Red Blood Count 4.78 M/mm3 (4.60-6.20); Red Cell Distribution Width 13.5 % (11.5-17.5); White Blood Count 3.9 K/mm3 (4.8-10.8)
[2019-07-01 12:13] LABS: Alanine Aminotransferase 45 U/L (12-78); Albumin Level 3.3 gm/dL (3.4-5.0); Albumin/Globulin Ratio 1.1 (1.1-1.8); Alkaline Phosphatase 95 U/L (46-116); Anion Gap 11.2 mEq/L (5-15); Aspartate Amino Transferase 23 U/L (15-37); Bilirubin,Total 1.4 mg/dL (0.2-1.0); Blood Urea Nitrogen 16 mg/dL (7-18); Calcium 8.8 mg/dL (8.5-10.1); Carbon Dioxide 30 mmol/L (21.0-32.0); Chloride 105 mmol/L (98-107); Creatinine,Serum 0.97 mg/dL (0.70-1.30); Estimated Glomerular Filt Rate 82 ml/min (>60); GFR (African American) 99 ML/MIN (>60); Globulin 3.1 gm/dl (1.3-3.2); Glucose 97 mg/dL (74-106); Potassium 4.2 mmoL/L (3.5-5.1); Sodium 142 mmol/L (136-145); Total Protein,Serum 6.4 gm/dL (6.4-8.2)
[2019-07-02 14:19] LABS: Free Lambda Lt Chains 15.1 mg/L (5.7-26.3)
[2019-07-02 16:59] LABS: Albumin 3.4 g/dL (2.9-4.4); Alpha-1-Globulin 0.3 g/dL (0.0-0.4); Alpha-2-Globulin 0.7 g/dL (0.4-1.0); Gamma Globulin 1.1 g/dL (0.4-1.8); Immunoglobulin A, Qn 252 mg/dL (90-386); Immunoglobulin G, Qn 1140 mg/dL (700-1600); Protein, Total 6.5 g/dL (6.0-8.5)
[2019-07-02 17:27] LABS: Immunoglobulin M, Qn 33 mg/dL (20-172)
== END ==
PROVIDERS: Visit Provider Internal Medicine Medical Oncology
DX: C90.00 Multiple myeloma not having achieved remission (principal)
CPT/HCPCS: 36415; 80053; 82784; 83883; 84155; 84165; 85025; 86334

== ENCOUNTER → 2019-09-03 11:39 | Outpatient (CLI) | payer MEDICARE, SELFPAY ==
[2019-09-03 11:58] LABS: Basophils % 0.5 % (0.1-2.0); Eosinophils # 0.2 K/mm3 (0.0-0.4); Eosinophils % 3.9 % (0.1-12.0); Hematocrit 47.1 % (42.0-52.0); Lymphocytes # 1.6 K/mm3 (0.7-4.5); Lymphocytes % 40.9 % (10-50); Mean Corpuscular Hemoglobin 32.7 pg (27.0-31.2); Mean Corpuscular Volume 96.3 fl (80-94); Mean Platelet Volume 7.5 fl (7.4-10.4); Monocytes # 0.3 K/mm3 (0.1-1.0); Monocytes % 8.4 % (1.7-9.3); Neutrophils # 1.8 K/mm3 (1.8-7.8); Neutrophils % 46.3 % (37.0-80.0); Platelet Count 165 K/mm3 (142-424); Red Blood Count 4.89 M/mm3 (4.60-6.20); Red Cell Distribution Width 13.6 % (11.5-17.5); White Blood Count 3.9 K/mm3 (4.8-10.8)
[2019-09-03 12:16] LABS: Chloride 108 mmol/L (98-107); Potassium 4.1 mmoL/L (3.5-5.1); Sodium 140 mmol/L (136-145)
[2019-09-03 12:19] LABS: Alanine Aminotransferase 31 U/L (12-78); Albumin Level 4.1 g/dl (3.5-5.0); Albumin/Globulin Ratio 1.2 (1.1-1.8); Alkaline Phosphatase 87 U/L (38-126); Anion Gap 8.1 mEq/L (5-15); Aspartate Amino Transferase 31 U/L (17-59); Bilirubin,Total 1.4 mg/dl (0.2-1.3); Blood Urea Nitrogen 11 mg/dl (9-20); Calcium 9.1 mg/dl (8.4-10.2); Carbon Dioxide 28 mmol/L (22.0-30.0); Estimated Glomerular Filt Rate 102 ml/min (>60); GFR (African American) 124 ML/MIN (>60); Globulin 3.3 g/dL (1.3-3.2); Glucose 93 mg/dl (74-100); Total Protein,Serum 7.4 g/dl (6.3-8.2)
[2019-09-04 16:56] LABS: Free Kappa Lt Chains 21.8 mg/L (3.3-19.4); Free Lambda Lt Chains 22.6 mg/L (5.7-26.3)
[2019-09-06 14:25] LABS: Alpha-1-Globulin 0.2 g/dL (0.0-0.4); Alpha-2-Globulin 0.7 g/dL (0.4-1.0); Gamma Globulin 1.1 g/dL (0.4-1.8); Immunoglobulin A, Qn 306 mg/dL (90-386); Protein, Total 6.8 g/dL (6.0-8.5)
[2019-09-06 14:29] LABS: Immunoglobulin G, Qn 1370 mg/dL (700-1600); Immunoglobulin M, Qn 40 mg/dL (20-172)
== END ==
PROVIDERS: Visit Provider Internal Medicine Medical Oncology
DX: C90.00 Multiple myeloma not having achieved remission (principal)
CPT/HCPCS: 36415; 80053; 82784; 83883; 84155; 84165; 85025; 86334

== ENCOUNTER → 2019-12-22 10:01 | Outpatient (CLI) | payer MEDICARE, SELFPAY ==
[2019-12-22 10:21] LABS: Basophils % 0.9 % (0.1-2.0); Eosinophils # 0.5 K/mm3 (0.0-0.4); Eosinophils % 11.7 % (0.1-12.0); Hemoglobin 15.5 g/dL (14.1-18.0); Lymphocytes # 1.3 K/mm3 (0.7-4.5); Lymphocytes % 32.9 % (10-50); Mean Corpuscular HGB Conc 34.4 g/dL (31.8-35.4); Mean Corpuscular Hemoglobin 34.3 pg (27.0-31.2); Mean Corpuscular Volume 99.6 fl (80-94); Mean Platelet Volume 8.7 fl (7.4-10.4); Monocytes # 0.5 K/mm3 (0.1-1.0); Monocytes % 12.6 % (1.7-9.3); Neutrophils # 1.7 K/mm3 (1.8-7.8); Neutrophils % 41.9 % (37.0-80.0); Platelet Count 128 K/mm3 (142-424); Red Blood Count 4.52 M/mm3 (4.60-6.20); Red Cell Distribution Width 14.1 % (11.5-17.5); White Blood Count 4.1 K/mm3 (4.8-10.8)
[2019-12-22 11:02] LABS: Alanine Aminotransferase 35 U/L (12-78); Albumin Level 3.7 g/dl (3.5-5.0); Albumin/Globulin Ratio 1.2 (1.1-1.8); Alkaline Phosphatase 94 U/L (38-126); Anion Gap 9.9 mEq/L (5-15); Aspartate Amino Transferase 32 U/L (17-59); Bilirubin,Total 2.3 mg/dl (0.2-1.3); Blood Urea Nitrogen 12 mg/dl (9-20); Calcium 8.9 mg/dl (8.4-10.2); Carbon Dioxide 29 mmol/L (22.0-30.0); Chloride 103 mmol/L (98-107); Estimated Glomerular Filt Rate 102 ml/min (>60); GFR (African American) 123 ML/MIN (>60); Glucose 97 mg/dl (74-100); Potassium 3.9 mmoL/L (3.5-5.1); Sodium 138 mmol/L (136-145); Total Protein,Serum 6.7 g/dl (6.3-8.2)
[2019-12-23 14:11] LABS: Albumin 3.6 g/dL (2.9-4.4); Alpha-1-Globulin 0.2 g/dL (0.0-0.4); Alpha-2-Globulin 0.7 g/dL (0.4-1.0); Gamma Globulin 1.1 g/dL (0.4-1.8); Immunoglobulin A, Qn 252 mg/dL (90-386); Immunoglobulin G, Qn 1135 mg/dL (603-1613); Protein, Total 6.6 g/dL (6.0-8.5)
[2019-12-23 16:16] LABS: Immunoglobulin M, Qn 25 mg/dL (20-172)
[2019-12-23 18:29] LABS: Free Kappa Lt Chains 23.4 mg/L (3.3-19.4); Free Lambda Lt Chains 15.6 mg/L (5.7-26.3)
== END ==
PROVIDERS: Visit Provider Internal Medicine Medical Oncology
DX: C90.00 Multiple myeloma not having achieved remission (principal)
CPT/HCPCS: 36415; 80053; 82784; 83883; 84155; 84165; 85025; 86334

== ENCOUNTER → 2020-01-19 10:27 | Outpatient (CLI) | payer MEDICARE, SELFPAY ==
[2020-01-19 10:48] LABS: Basophils % 0.4 % (0.1-2.0); Eosinophils # 0.3 K/mm3 (0.0-0.4); Eosinophils % 7.5 % (0.1-12.0); Hematocrit 43.3 % (42.0-52.0); Hemoglobin 14.8 g/dL (14.1-18.0); Lymphocytes # 1.2 K/mm3 (0.7-4.5); Lymphocytes % 33.8 % (10-50); Mean Corpuscular HGB Conc 34.2 g/dL (31.8-35.4); Mean Corpuscular Hemoglobin 34.4 pg (27.0-31.2); Mean Corpuscular Volume 100.5 fl (80-94); Mean Platelet Volume 8.2 fl (7.4-10.4); Monocytes # 0.5 K/mm3 (0.1-1.0); Monocytes % 15.4 % (1.7-9.3); Neutrophils # 1.5 K/mm3 (1.8-7.8); Neutrophils % 42.9 % (37.0-80.0); Platelet Count 125 K/mm3 (142-424); Red Blood Count 4.31 M/mm3 (4.60-6.20); Red Cell Distribution Width 13.8 % (11.5-17.5); White Blood Count 3.4 K/mm3 (4.8-10.8)
[2020-01-19 11:38] LABS: Chloride 106 mmol/L (98-107); Potassium 3.8 mmoL/L (3.5-5.1); Sodium 141 mmol/L (136-145)
[2020-01-19 11:41] LABS: Alanine Aminotransferase 28 U/L (12-78); Albumin Level 3.4 g/dl (3.5-5.0); Albumin/Globulin Ratio 1.2 (1.1-1.8); Alkaline Phosphatase 79 U/L (38-126); Anion Gap 8.8 mEq/L (5-15); Aspartate Amino Transferase 24 U/L (17-59); Bilirubin,Total 1.5 mg/dl (0.2-1.3); Blood Urea Nitrogen 10 mg/dl (9-20); Carbon Dioxide 30 mmol/L (22.0-30.0); Estimated Glomerular Filt Rate 102 ml/min (>60); GFR (African American) 123 ML/MIN (>60); Globulin 2.8 g/dL (1.3-3.2); Total Protein,Serum 6.2 g/dl (6.3-8.2)
[2020-01-19 11:42] LABS: Glucose 80 mg/dl (74-100)
[2020-01-20 16:46] LABS: Free Kappa Lt Chains 23.7 mg/L (3.3-19.4); Free Lambda Lt Chains 16.8 mg/L (5.7-26.3)
[2020-01-20 19:06] LABS: Albumin 3.4 g/dL (2.9-4.4); Alpha-1-Globulin 0.2 g/dL (0.0-0.4); Alpha-2-Globulin 0.7 g/dL (0.4-1.0); Protein, Total 6.1 g/dL (6.0-8.5)
== END ==
PROVIDERS: Visit Provider Internal Medicine Medical Oncology
DX: C90.00 Multiple myeloma not having achieved remission (principal)
CPT/HCPCS: 36415; 80053; 83883; 84155; 84165; 85025

== ENCOUNTER → 2020-03-15 10:15 | Outpatient (CLI) | payer MEDICARE, SELFPAY ==
[2020-03-15 10:54] LABS: Basophils # 0.1 K/mm3 (0-0.2); Basophils % 1.3 % (0.1-2.0); Eosinophils # 0.4 K/mm3 (0.0-0.4); Hemoglobin 15.7 g/dL (14.1-18.0); Lymphocytes # 1.2 K/mm3 (0.7-4.5); Lymphocytes % 31.4 % (10-50); Mean Corpuscular HGB Conc 32.7 g/dL (31.8-35.4); Mean Corpuscular Hemoglobin 33.3 pg (27.0-31.2); Mean Corpuscular Volume 101.8 fl (80-94); Mean Platelet Volume 7.5 fl (7.4-10.4); Monocytes # 0.4 K/mm3 (0.1-1.0); Monocytes % 9.7 % (1.7-9.3); Neutrophils # 1.8 K/mm3 (1.8-7.8); Neutrophils % 47.6 % (37.0-80.0); Platelet Count 142 K/mm3 (142-424); Red Blood Count 4.72 M/mm3 (4.60-6.20); Red Cell Distribution Width 13.4 % (11.5-17.5); White Blood Count 3.8 K/mm3 (4.8-10.8)
[2020-03-15 12:36] LABS: Chloride 106 mmol/L (98-107); Sodium 140 mmol/L (136-145)
[2020-03-15 12:37] LABS: Potassium 4.1 mmoL/L (3.5-5.1)
[2020-03-15 12:39] LABS: Alanine Aminotransferase 26 U/L (12-78); Albumin Level 3.7 g/dl (3.5-5.0); Albumin/Globulin Ratio 1.3 (1.1-1.8); Alkaline Phosphatase 89 U/L (38-126); Anion Gap 9.1 mEq/L (5-15); Aspartate Amino Transferase 24 U/L (17-59); Bilirubin,Total 1.2 mg/dl (0.2-1.3); Blood Urea Nitrogen 13 mg/dl (9-20); Calcium 9.4 mg/dl (8.4-10.2); Carbon Dioxide 29 mmol/L (22.0-30.0); Estimated Glomerular Filt Rate 102 ml/min (>60); GFR (African American) 123 ML/MIN (>60); Globulin 2.9 g/dL (1.3-3.2); Glucose 95 mg/dl (74-100); Total Protein,Serum 6.6 g/dl (6.3-8.2)
[2020-03-16 17:08] LABS: Free Kappa Lt Chains 21.4 mg/L (3.3-19.4); Immunoglobulin A, Qn 280 mg/dL (90-386); Immunoglobulin G, Qn 1210 mg/dL (603-1613); Immunoglobulin M, Qn 38 mg/dL (20-172)
[2020-03-16 17:09] LABS: Albumin 3.3 g/dL (2.9-4.4); Alpha-1-Globulin 0.3 g/dL (0.0-0.4); Alpha-2-Globulin 0.9 g/dL (0.4-1.0); Gamma Globulin 1.2 g/dL (0.4-1.8); Protein, Total 6.8 g/dL (6.0-8.5)
== END ==
PROVIDERS: Visit Provider Internal Medicine Medical Oncology
DX: C90.00 Multiple myeloma not having achieved remission (principal)
CPT/HCPCS: 36415; 80053; 82784; 83883; 84155; 84165; 85025; 86334

== ENCOUNTER → 2020-05-18 13:13 | Outpatient (CLI) | payer MEDICARE, SELFPAY ==
[2020-05-18 14:24] LABS: Basophils # 0.1 K/mm3 (0-0.2); Basophils % 1.3 % (0.1-2.0); Eosinophils # 0.2 K/mm3 (0.0-0.4); Eosinophils % 3.8 % (0.1-12.0); Hematocrit 48.7 % (42.0-52.0); Hemoglobin 15.8 g/dL (14.1-18.0); Lymphocytes # 1.4 K/mm3 (0.7-4.5); Lymphocytes % 36.6 % (10-50); Mean Corpuscular HGB Conc 32.4 g/dL (31.8-35.4); Mean Corpuscular Hemoglobin 33.3 pg (27.0-31.2); Mean Corpuscular Volume 102.9 fl (80-94); Mean Platelet Volume 7.8 fl (7.4-10.4); Monocytes # 0.5 K/mm3 (0.1-1.0); Monocytes % 11.6 % (1.7-9.3); Neutrophils # 1.8 K/mm3 (1.8-7.8); Neutrophils % 46.7 % (37.0-80.0); Platelet Count 170 K/mm3 (142-424); Red Blood Count 4.74 M/mm3 (4.60-6.20); Red Cell Distribution Width 13.9 % (11.5-17.5); White Blood Count 3.9 K/mm3 (4.8-10.8)
[2020-05-18 15:51] LABS: Alanine Aminotransferase 33 U/L (12-78); Albumin Level 3.9 g/dl (3.5-5.0); Albumin/Globulin Ratio 1.3 (1.1-1.8); Alkaline Phosphatase 96 U/L (38-126); Aspartate Amino Transferase 28 U/L (17-59); Bilirubin,Total 1.6 mg/dl (0.2-1.3); Blood Urea Nitrogen 14 mg/dl (9-20); Calcium 9.3 mg/dl (8.4-10.2); Carbon Dioxide 28 mmol/L (22.0-30.0); Chloride 104 mmol/L (98-107); Estimated Glomerular Filt Rate 102 ml/min (>60); GFR (African American) 123 ML/MIN (>60); Glucose 94 mg/dl (74-100); Sodium 139 mmol/L (136-145); Total Protein,Serum 6.9 g/dl (6.3-8.2)
[2020-05-20 16:28] LABS: Free Kappa Lt Chains 19.9 mg/L (3.3-19.4); Free Lambda Lt Chains 18.1 mg/L (5.7-26.3)
[2020-05-22 15:31] LABS: Immunoglobulin A, Qn 277 mg/dL (90-386); Immunoglobulin G, Qn 1263 mg/dL (603-1613)
[2020-05-22 16:11] LABS: Albumin 3.5 g/dL (2.9-4.4); Alpha-1-Globulin 0.2 g/dL (0.0-0.4); Alpha-2-Globulin 0.7 g/dL (0.4-1.0); Gamma Globulin 1.2 g/dL (0.4-1.8); Protein, Total 6.7 g/dL (6.0-8.5)
[2020-05-23 08:03] LABS: Immunoglobulin M, Qn 28 mg/dL (20-172)
== END ==
PROVIDERS: Visit Provider Internal Medicine Medical Oncology
DX: C90.00 Multiple myeloma not having achieved remission (principal)
CPT/HCPCS: 36415; 80053; 82784; 83883; 84155; 84165; 85025; 86334

== ENCOUNTER → 2020-07-11 09:24 | Outpatient (CLI) | payer MEDICARE, SELFPAY ==
[2020-07-11 10:09] LABS: Chloride 106 mmol/L (98-107); Sodium 140 mmol/L (136-145)
[2020-07-11 10:10] LABS: Potassium 3.8 mmoL/L (3.5-5.1)
[2020-07-11 10:12] LABS: Alanine Aminotransferase 43 U/L (12-78); Albumin Level 3.8 g/dl (3.5-5.0); Albumin/Globulin Ratio 1.2 (1.1-1.8); Alkaline Phosphatase 92 U/L (38-126); Anion Gap 9.8 mEq/L (5-15); Aspartate Amino Transferase 30 U/L (17-59); Basophils % 1.1 % (0.1-2.0); Bilirubin,Total 1.6 mg/dl (0.2-1.3); Blood Urea Nitrogen 9 mg/dl (9-20); Carbon Dioxide 28 mmol/L (22.0-30.0); Eosinophils # 0.3 K/mm3 (0.0-0.4); Eosinophils % 8.1 % (0.1-12.0); Estimated Glomerular Filt Rate 102 ml/min (>60); GFR (African American) 123 ML/MIN (>60); Globulin 3.2 g/dL (1.3-3.2); Hematocrit 46.6 % (42.0-52.0); Hemoglobin 15.6 g/dL (14.1-18.0); Lymphocytes # 1.2 K/mm3 (0.7-4.5); Lymphocytes % 35.1 % (10-50); Mean Corpuscular HGB Conc 33.5 g/dL (31.8-35.4); Mean Corpuscular Hemoglobin 33.1 pg (27.0-31.2); Mean Corpuscular Volume 98.6 fl (80-94); Mean Platelet Volume 7.7 fl (7.4-10.4); Monocytes # 0.5 K/mm3 (0.1-1.0); Monocytes % 14.9 % (1.7-9.3); Neutrophils # 1.4 K/mm3 (1.8-7.8); Neutrophils % 40.8 % (37.0-80.0); Platelet Count 128 K/mm3 (142-424); Red Blood Count 4.72 M/mm3 (4.60-6.20); Red Cell Distribution Width 13.9 % (11.5-17.5); White Blood Count 3.4 K/mm3 (4.8-10.8)
[2020-07-11 10:13] LABS: Calcium 9.2 mg/dl (8.4-10.2); Glucose 107 mg/dl (74-100)
[2020-07-12 14:53] LABS: Immunoglobulin A, Qn 268 mg/dL (90-386); Immunoglobulin G, Qn 1240 mg/dL (603-1613)
[2020-07-12 15:43] LABS: Immunoglobulin M, Qn 31 mg/dL (20-172)
[2020-07-12 15:44] LABS: Albumin 3.3 g/dL (2.9-4.4); Alpha-1-Globulin 0.2 g/dL (0.0-0.4); Alpha-2-Globulin 0.7 g/dL (0.4-1.0); Gamma Globulin 1.2 g/dL (0.4-1.8); Protein, Total 6.5 g/dL (6.0-8.5)
[2020-07-12 17:45] LABS: Free Lambda Lt Chains 20.1 mg/L (5.7-26.3)
== END ==
PROVIDERS: Visit Provider Internal Medicine Medical Oncology
DX: C90.00 Multiple myeloma not having achieved remission (principal)
CPT/HCPCS: 36415; 80053; 82784; 83883; 84155; 84165; 85025; 86334

== ENCOUNTER → 2020-09-14 10:24 | Outpatient (CLI) | payer MEDICARE, SELFPAY ==
[2020-09-14 10:50] LABS: Basophils % 0.9 % (0.1-2.0); Eosinophils # 0.1 K/mm3 (0.0-0.4); Eosinophils % 3.6 % (0.1-12.0); Hematocrit 46.2 % (42.0-52.0); Hemoglobin 15.8 g/dL (14.1-18.0); Lymphocytes # 1.5 K/mm3 (0.7-4.5); Lymphocytes % 39.3 % (10-50); Mean Corpuscular HGB Conc 34.2 g/dL (31.8-35.4); Mean Corpuscular Hemoglobin 32.8 pg (27.0-31.2); Mean Platelet Volume 7.6 fl (7.4-10.4); Monocytes # 0.5 K/mm3 (0.1-1.0); Monocytes % 12.2 % (1.7-9.3); Neutrophils # 1.7 K/mm3 (1.8-7.8); Platelet Count 155 K/mm3 (142-424); Red Blood Count 4.81 M/mm3 (4.60-6.20); Red Cell Distribution Width 13.8 % (11.5-17.5); White Blood Count 3.9 K/mm3 (4.8-10.8)
[2020-09-14 11:33] LABS: Chol/HDL Ratio 4.4 (1-3.5); Cholesterol 163 mg/dl (140-200); HDL Cholesterol 37 mg/dl (40-60); Triglycerides 149 mg/dl (30-150); VLDL Cholesterol 30 mg/dL (0-40)
[2020-09-14 11:34] LABS: Alanine Aminotransferase 43 U/L (12-78); Albumin Level 4.3 g/dl (3.5-5.0); Albumin/Globulin Ratio 1.4 (1.1-1.8); Alkaline Phosphatase 107 U/L (38-126); Anion Gap 13.1 mEq/L (5-15); Aspartate Amino Transferase 30 U/L (17-59); Bilirubin,Total 1.5 mg/dl (0.2-1.3); Blood Urea Nitrogen 15 mg/dl (9-20); Calcium 9.4 mg/dl (8.4-10.2); Carbon Dioxide 28 mmol/L (22.0-30.0); Chloride 107 mmol/L (98-107); Estimated Glomerular Filt Rate 102 ml/min (>60); GFR (African American) 123 ML/MIN (>60); Globulin 3.1 g/dL (1.3-3.2); Glucose 99 mg/dl (74-100); Potassium 4.1 mmoL/L (3.5-5.1); Sodium 144 mmol/L (136-145); Total Protein,Serum 7.4 g/dl (6.3-8.2)
[2020-09-14 11:44] LABS: Direct LDL Cholesterol 96.83 mg/dL (100-129)
[2020-09-15 15:10] LABS: Immunoglobulin A, Qn 324 mg/dL (90-386); Immunoglobulin G, Qn 1222 mg/dL (603-1613)
[2020-09-16 14:51] LABS: Immunoglobulin M, Qn 79 mg/dL (20-172)
[2020-09-21 09:23] LABS: Albumin 3.2; Alpha-1-Globulin 0.3; Alpha-2-Globulin 0.7; Gamma Globulin 1.1; Protein, Total 6.3
[2020-09-21 09:25] LABS: Free Kappa Lt Chains 17.9; Free Lambda Lt Chains 15.9
== END ==
PROVIDERS: Internal Medicine Medical Oncology; Visit Provider Nurse Practitioner Family
DX: C90.00 Multiple myeloma not having achieved remission (principal); I10 Essential (primary) hypertension
CPT/HCPCS: 36415; 80053; 80061; 82784; 83883; 84155; 84165; 85025; 86334

== ENCOUNTER → 2020-12-28 13:08 | Outpatient (CLI) | payer MEDICARE, SELFPAY ==
[2020-12-28 13:42] LABS: Basophils % 0.7 % (0.1-2.0); Eosinophils # 0.9 K/mm3 (0.0-0.4); Eosinophils % 17.8 % (0.1-12.0); Hematocrit 42.3 % (42.0-52.0); Hemoglobin 14.6 g/dL (14.1-18.0); Lymphocytes # 1.8 K/mm3 (0.7-4.5); Lymphocytes % 34.1 % (10-50); Mean Corpuscular HGB Conc 34.6 g/dL (31.8-35.4); Mean Corpuscular Hemoglobin 32.7 pg (27.0-31.2); Mean Corpuscular Volume 94.7 fl (80-94); Mean Platelet Volume 8.5 fl (7.4-10.4); Monocytes # 0.6 K/mm3 (0.1-1.0); Monocytes % 11.2 % (1.7-9.3); Neutrophils # 1.9 K/mm3 (1.8-7.8); Neutrophils % 36.2 % (37.0-80.0); Platelet Count 120 K/mm3 (142-424); Red Blood Count 4.47 M/mm3 (4.60-6.20); Red Cell Distribution Width 14.5 % (11.5-17.5); White Blood Count 5.3 K/mm3 (4.8-10.8)
[2020-12-28 14:13] LABS: Alanine Aminotransferase 33 U/L (12-78); Albumin Level 3.7 g/dl (3.5-5.0); Albumin/Globulin Ratio 1.3 (1.1-1.8); Alkaline Phosphatase 94 U/L (38-126); Anion Gap 8.5 mEq/L (5-15); Aspartate Amino Transferase 24 U/L (17-59); Bilirubin,Total 1.5 mg/dl (0.2-1.3); Blood Urea Nitrogen 10 mg/dl (9-20); Calcium 8.5 mg/dl (8.4-10.2); Carbon Dioxide 29 mmol/L (22.0-30.0); Chloride 109 mmol/L (98-107); Estimated Glomerular Filt Rate 118 ml/min (>60); GFR (African American) 143 ML/MIN (>60); Globulin 2.8 g/dL (1.3-3.2); Glucose 82 mg/dl (74-100); Potassium 3.5 mmoL/L (3.5-5.1); Sodium 143 mmol/L (136-145); Total Protein,Serum 6.5 g/dl (6.3-8.2)
[2020-12-29 15:16] LABS: Immunoglobulin A, Qn 265 mg/dL (90-386); Immunoglobulin G, Qn 1176 mg/dL (603-1613); Immunoglobulin M, Qn 36 mg/dL (20-172)
[2020-12-29 16:26] LABS: Albumin 3.5 g/dL (2.9-4.4); Alpha-1-Globulin 0.2 g/dL (0.0-0.4); Alpha-2-Globulin 0.7 g/dL (0.4-1.0); Gamma Globulin 1.1 g/dL (0.4-1.8); Protein, Total 6.6 g/dL (6.0-8.5)
[2021-01-05 09:40] LABS: Free Kappa Lt Chains 27.6; Free Lambda Lt Chains 22.8
== END ==
PROVIDERS: Visit Provider Internal Medicine Medical Oncology
DX: C90.00 Multiple myeloma not having achieved remission (principal)
CPT/HCPCS: 36415; 80053; 82784; 83883; 84155; 84165; 85025; 86334

== ENCOUNTER → 2021-02-22 09:40 | Outpatient (CLI) | payer MEDICARE, SELFPAY ==
[2021-02-22 10:05] LABS: Basophils % 0.9 % (0.1-2.0); Eosinophils # 0.3 K/mm3 (0.0-0.4); Eosinophils % 5.5 % (0.1-12.0); Hematocrit 45.8 % (42.0-52.0); Hemoglobin 15.3 g/dL (14.1-18.0); Lymphocytes # 1.5 K/mm3 (0.7-4.5); Lymphocytes % 33.6 % (10-50); Mean Corpuscular HGB Conc 33.5 g/dL (31.8-35.4); Mean Corpuscular Hemoglobin 33.3 pg (27.0-31.2); Mean Corpuscular Volume 99.5 fl (80-94); Mean Platelet Volume 8.5 fl (7.4-10.4); Monocytes # 0.5 K/mm3 (0.1-1.0); Monocytes % 11.6 % (1.7-9.3); Neutrophils # 2.2 K/mm3 (1.8-7.8); Neutrophils % 48.4 % (37.0-80.0); Platelet Count 191 K/mm3 (142-424); Red Cell Distribution Width 14.1 % (11.5-17.5); White Blood Count 4.6 K/mm3 (4.8-10.8)
[2021-02-22 10:57] LABS: Chloride 108 mmol/L (98-107)
[2021-02-22 10:58] LABS: Potassium 3.7 mmoL/L (3.5-5.1); Sodium 143 mmol/L (136-145)
[2021-02-22 11:00] LABS: Alanine Aminotransferase 33 U/L (12-78); Aspartate Amino Transferase 26 U/L (17-59); Blood Urea Nitrogen 9 mg/dl (9-20); Estimated Glomerular Filt Rate 102 ml/min (>60); GFR (African American) 123 ML/MIN (>60)
[2021-02-22 11:01] LABS: Albumin Level 3.8 g/dl (3.5-5.0); Albumin/Globulin Ratio 1.2 (1.1-1.8); Alkaline Phosphatase 107 U/L (38-126); Anion Gap 12.7 mEq/L (5-15); Bilirubin,Total 1.4 mg/dl (0.2-1.3); Carbon Dioxide 26 mmol/L (22.0-30.0); Globulin 3.1 g/dL (1.3-3.2); Glucose 102 mg/dl (74-100); Total Protein,Serum 6.9 g/dl (6.3-8.2)
[2021-02-23 17:40] LABS: Albumin 3.5 g/dL (2.9-4.4); Alpha-1-Globulin 0.2 g/dL (0.0-0.4); Alpha-2-Globulin 0.7 g/dL (0.4-1.0); Gamma Globulin 1.3 g/dL (0.4-1.8); Immunoglobulin A, Qn 304 mg/dL (90-386); Immunoglobulin G, Qn 1289 mg/dL (603-1613); Immunoglobulin M, Qn 41 mg/dL (20-172); Protein, Total 6.9 g/dL (6.0-8.5)
[2021-03-10 16:12] LABS: Free Kappa Lt Chains 27.8; Free Lambda Lt Chains 18.7
== END ==
PROVIDERS: Visit Provider Internal Medicine Medical Oncology
DX: C90.00 Multiple myeloma not having achieved remission (principal)
CPT/HCPCS: 36415; 80053; 82784; 83883; 84155; 84165; 85025; 86334

== ENCOUNTER → 2021-04-16 07:59 | Outpatient (CLI) | payer MEDICARE, SELFPAY ==
--- NOTE | 2021-04-16 08:25 | CT_ITS ---
PROCEDURE: CT LUNG SCREENING CLINICAL INDICATION: H/O NICOTINE DEPENDENCE COMPARISON: CT CHW CT CHEST W/ CONTRAST from 09/04/[address] BIOPSY from 09/05/2015 CR CXR CHEST(2 VIEWS-NOT PORTABLE) from 11/04/2015 TECHNIQUE: The exam was performed on a [employer] Speed [address] scanner using 2.90 mGy CTDI. A low dose helical CT CHEST was performed on a multi-detector scanner. All CT scans at the facility use one or more dose reduction, viz: automated exposure control, ma/kV adjustment per patient size (including targeted exams where dose is matched to indication, i.e. head), or iterative reconstruction technique. The LDCT was performed in a facility that meets the criteria for the screening program. Data regarding this exam was submitted to ACR which is an approved registry. The order for this exam indicates that it came as a result of a lung cancer screening counseling shard decision-making visit that included all the elements required of such a visit including smoking cessation. The radiologist interpreting this exam meets the CMS criteria for the LDCT lung cancer screening program. The exam is reported using the Lung-RADS classification scale and reported to the ACR registry. NOTE: This study was performed for the specific purposes of lung cancer screening and is not an alternative to diagnostic chest CT. RADIATION DOSE: CTDI vol(CT dose Index-volume) = 2.90mG DLP (Dose Length Product) = 96.38 mGcm FINDINGS: COPD changes. Irregular opacity in the right minor fissure at approximately 11 x 7 mm. Dependent changes in the lung bases. No other abnormalities evident. OTHER FINDINGS: Gynecomastia. This exam does not cover the L1 region which was the site of the expansile mass on the previous CT scan. Lumbar spine CT or abdominal CT would provide coverage of that area. IMPRESSION: Lung-RADS Category 3 Probably Benign. Right minor fissural nodule probably benign but not apparent on the previous CT scan. Follow-up recommended. Follow-up: [address] Chest without and with contrast. Dictated by: Jamison Olivares MD 04/29/2021 09:52 Jamison Olivares MD in [place] 04/29/2021 09:52
[2021-04-16 08:57] LABS: Basophils # 0.1 K/mm3 (0-0.2); Basophils % 1.2 % (0.1-2.0); Eosinophils # 0.2 K/mm3 (0.0-0.4); Eosinophils % 4.9 % (0.1-12.0); Hematocrit 45.8 % (42.0-52.0); Hemoglobin 15.2 g/dL (14.1-18.0); Lymphocytes # 1.5 K/mm3 (0.7-4.5); Lymphocytes % 38.9 % (10-50); Mean Corpuscular HGB Conc 33.1 g/dL (31.8-35.4); Mean Corpuscular Hemoglobin 32.8 pg (27.0-31.2); Mean Platelet Volume 8.7 fl (7.4-10.4); Monocytes # 0.5 K/mm3 (0.1-1.0); Monocytes % 12.2 % (1.7-9.3); Neutrophils # 1.7 K/mm3 (1.8-7.8); Neutrophils % 42.8 % (37.0-80.0); Platelet Count 161 K/mm3 (142-424); Red Blood Count 4.63 M/mm3 (4.60-6.20); Red Cell Distribution Width 14.4 % (11.5-17.5); White Blood Count 3.9 K/mm3 (4.8-10.8)
[2021-04-16 10:02] LABS: Alanine Aminotransferase 30 U/L (12-78); Albumin Level 3.6 g/dl (3.5-5.0); Albumin/Globulin Ratio 1.2 (1.1-1.8); Alkaline Phosphatase 104 U/L (38-126); Anion Gap 8.8 mEq/L (5-15); Aspartate Amino Transferase 26 U/L (17-59); Bilirubin,Total 1.1 mg/dl (0.2-1.3); Blood Urea Nitrogen 10 mg/dl (9-20); Calcium 8.9 mg/dl (8.4-10.2); Carbon Dioxide 29 mmol/L (22.0-30.0); Chloride 108 mmol/L (98-107); Estimated Glomerular Filt Rate 141 ml/min (>60); GFR (African American) 171 ML/MIN (>60); Globulin 3.1 g/dL (1.3-3.2); Glucose 100 mg/dl (74-100); Potassium 3.8 mmoL/L (3.5-5.1); Sodium 142 mmol/L (136-145); Total Protein,Serum 6.7 g/dl (6.3-8.2)
[2021-04-17 15:10] LABS: Albumin 3.1 g/dL (2.9-4.4); Alpha-1-Globulin 0.2 g/dL (0.0-0.4); Alpha-2-Globulin 0.7 g/dL (0.4-1.0); Gamma Globulin 1.3 g/dL (0.4-1.8); Protein, Total 6.5 g/dL (6.0-8.5)
[2021-04-17 16:11] LABS: Immunoglobulin A, Qn 308 mg/dL (90-386); Immunoglobulin G, Qn 1280 mg/dL (603-1613); Immunoglobulin M, Qn 30 mg/dL (20-172)
[2021-06-12 23:14] LABS: Free Kappa Lt Chains 22.6
[2021-06-12 23:15] LABS: Free Lambda Lt Chains 17.8
== END ==
PROVIDERS: Internal Medicine Medical Oncology; PCP Internal Medicine Adolescent Medicine; Visit Provider Internal Medicine Adolescent Medicine
DX: Z87.891 Personal history of nicotine dependence (principal); Z12.2 Encounter for screening for malignant neoplasm of respiratory organs; C90.00 Multiple myeloma not having achieved remission
CPT/HCPCS: 36415; 71271; 80053; 82784; 83883; 84155; 84165; 85025; 86334

== ENCOUNTER → 2021-07-05 15:02 | Outpatient (CLI) | payer MEDICARE, SELFPAY ==
[2021-07-05 15:24] LABS: Basophils # 0.1 K/mm3 (0-0.2); Basophils % 1.8 % (0.1-2.0); Eosinophils # 0.3 K/mm3 (0.0-0.4); Eosinophils % 6.5 % (0.1-12.0); Hematocrit 48.3 % (42.0-52.0); Hemoglobin 15.9 g/dL (14.1-18.0); Lymphocytes # 1.6 K/mm3 (0.7-4.5); Lymphocytes % 42.2 % (10-50); Mean Corpuscular Hemoglobin 33.5 pg (27.0-31.2); Mean Corpuscular Volume 101.7 fl (80-94); Mean Platelet Volume 8.2 fl (7.4-10.4); Monocytes # 0.5 K/mm3 (0.1-1.0); Monocytes % 13.3 % (1.7-9.3); Neutrophils # 1.4 K/mm3 (1.8-7.8); Neutrophils % 36.1 % (37.0-80.0); Platelet Count 160 K/mm3 (142-424); Red Blood Count 4.75 M/mm3 (4.60-6.20); Red Cell Distribution Width 13.8 % (11.5-17.5); White Blood Count 3.8 K/mm3 (4.8-10.8)
[2021-07-05 16:08] LABS: Alanine Aminotransferase 46 U/L (12-78); Albumin Level 4.2 g/dl (3.5-5.0); Albumin/Globulin Ratio 1.5 (1.1-1.8); Alkaline Phosphatase 97 U/L (38-126); Aspartate Amino Transferase 33 U/L (17-59); Bilirubin,Total 1.9 mg/dl (0.2-1.3); Blood Urea Nitrogen 11 mg/dl (9-20); Calcium 9.2 mg/dl (8.4-10.2); Carbon Dioxide 32 mmol/L (22.0-30.0); Chloride 105 mmol/L (98-107); Estimated Glomerular Filt Rate 89 ml/min (>60); GFR (African American) 107 ML/MIN (>60); Globulin 2.8 g/dL (1.3-3.2); Glucose 95 mg/dl (74-100); Sodium 141 mmol/L (136-145)
[2021-07-09 14:10] LABS: Albumin 3.5 g/dL (2.9-4.4); Alpha-1-Globulin 0.2 g/dL (0.0-0.4); Alpha-2-Globulin 0.7 g/dL (0.4-1.0); Gamma Globulin 1.2 g/dL (0.4-1.8); Immunoglobulin A, Qn 321 mg/dL (90-386); Immunoglobulin G, Qn 1299 mg/dL (603-1613); Immunoglobulin M, Qn 30 mg/dL (20-172); Protein, Total 6.8 g/dL (6.0-8.5)
[2021-08-03 13:48] LABS: Free Kappa Lt Chains 22.8; Free Lambda Lt Chains 16.7
== END ==
PROVIDERS: PCP Internal Medicine Adolescent Medicine; Visit Provider Internal Medicine Medical Oncology
DX: C90.00 Multiple myeloma not having achieved remission (principal)
CPT/HCPCS: 36415; 80053; 82784; 83883; 84155; 84165; 85025; 86334

== ENCOUNTER → 2021-09-06 15:21 | Outpatient (CLI) | payer MEDICARE, SELFPAY ==
[2021-09-06 16:12] LABS: Basophils # 0.1 K/mm3 (0-0.2); Basophils % 1.3 % (0.1-2.0); Eosinophils # 0.2 K/mm3 (0.0-0.4); Eosinophils % 3.8 % (0.1-12.0); Hematocrit 49.2 % (42.0-52.0); Hemoglobin 15.8 g/dL (14.1-18.0); Lymphocytes # 1.6 K/mm3 (0.7-4.5); Lymphocytes % 40.8 % (10-50); Mean Corpuscular HGB Conc 32.1 g/dL (31.8-35.4); Mean Corpuscular Hemoglobin 32.7 pg (27.0-31.2); Mean Corpuscular Volume 101.8 fl (80-94); Mean Platelet Volume 8.6 fl (7.4-10.4); Monocytes # 0.4 K/mm3 (0.1-1.0); Monocytes % 11.5 % (1.7-9.3); Neutrophils # 1.6 K/mm3 (1.8-7.8); Neutrophils % 42.6 % (37.0-80.0); Platelet Count 162 K/mm3 (142-424); Red Blood Count 4.84 M/mm3 (4.60-6.20); Red Cell Distribution Width 13.8 % (11.5-17.5); White Blood Count 3.8 K/mm3 (4.8-10.8)
[2021-09-06 17:06] LABS: Alanine Aminotransferase 44 U/L (12-78); Albumin/Globulin Ratio 1.4 (1.1-1.8); Alkaline Phosphatase 95 U/L (38-126); Anion Gap 9.6 mEq/L (5-15); Aspartate Amino Transferase 29 U/L (17-59); Bilirubin,Total 2.1 mg/dl (0.2-1.3); Blood Urea Nitrogen 10 mg/dl (9-20); Calcium 8.7 mg/dl (8.4-10.2); Carbon Dioxide 28 mmol/L (22.0-30.0); Chloride 108 mmol/L (98-107); Estimated Glomerular Filt Rate 102 ml/min (>60); GFR (African American) 123 ML/MIN (>60); Globulin 2.8 g/dL (1.3-3.2); Glucose 101 mg/dl (74-100); Potassium 3.6 mmoL/L (3.5-5.1); Sodium 142 mmol/L (136-145); Total Protein,Serum 6.8 g/dl (6.3-8.2)
[2021-09-10 15:21] LABS: Albumin 3.5 g/dL (2.9-4.4); Alpha-1-Globulin 0.3 g/dL (0.0-0.4); Alpha-2-Globulin 0.8 g/dL (0.4-1.0); Gamma Globulin 1.4 g/dL (0.4-1.8); Immunoglobulin A, Qn 349 mg/dL (90-386); Immunoglobulin G, Qn 1322 mg/dL (603-1613); Immunoglobulin M, Qn 38 mg/dL (20-172); Protein, Total 7.1 g/dL (6.0-8.5)
[2021-09-20 19:08] LABS: Free Kappa Lt Chains 22.2; Free Lambda Lt Chains 19.8
== END ==
PROVIDERS: PCP Internal Medicine Adolescent Medicine; Visit Provider Internal Medicine Medical Oncology
DX: C90.00 Multiple myeloma not having achieved remission (principal)
CPT/HCPCS: 36415; 80053; 82784; 83883; 84155; 84165; 85025; 86334

== ENCOUNTER → 2021-12-20 12:09 | Outpatient (CLI) | payer MEDICARE, SELFPAY ==
--- NOTE | 2021-12-20 12:21 | XR_ITS ---
FINAL REPORT CLINICAL HISTORY: MULTIPLE MYELOMA FINDINGS: SKELETAL SURVEY AP and lateral views of the axial skeleton were performed with AP views of the appendicular skeleton. There is a 7 mm lytic focus in the frontal bone seen on the lateral view of uncertain significance. There is a lytic focus with a thin sclerotic rim in the left proximal femur intertrochanteric region that is nonspecific and favored to be benign. No other masses identified. Mild degenerative changes are seen in the spine. No fractures are identified. IMPRESSION: 7 mm lytic focus in the frontal bone on the lateral view of uncertain significance. Nonspecific lytic focus in the left proximal femur is favored to be benign. Reviewed, Interpreted and Dictated by Jonathan Tavarez III, MD Transcribed by Jeferson Abraham Authenticated and [facility]
[2021-12-20 13:08] LABS: Basophils # 0.1 K/mm3 (0-0.2); Basophils % 2.7 % (0.1-2.0); Eosinophils # 0.6 K/mm3 (0.0-0.4); Eosinophils % 15.4 % (0.1-12.0); Hematocrit 45.7 % (42.0-52.0); Hemoglobin 15.3 g/dL (14.1-18.0); Lymphocytes # 1.3 K/mm3 (0.7-4.5); Lymphocytes % 33.2 % (10-50); Mean Corpuscular HGB Conc 33.5 g/dL (31.8-35.4); Mean Corpuscular Hemoglobin 34.4 pg (27.0-31.2); Mean Corpuscular Volume 102.6 fl (80-94); Mean Platelet Volume 8.6 fl (7.4-10.4); Monocytes # 0.4 K/mm3 (0.1-1.0); Neutrophils # 1.5 K/mm3 (1.8-7.8); Neutrophils % 39.7 % (37.0-80.0); Platelet Count 172 K/mm3 (142-424); Red Blood Count 4.45 M/mm3 (4.60-6.20); Red Cell Distribution Width 14.4 % (11.5-17.5); White Blood Count 3.9 K/mm3 (4.8-10.8)
[2021-12-20 13:44] LABS: Chloride 103 mmol/L (98-107); Potassium 3.7 mmoL/L (3.5-5.1); Sodium 139 mmol/L (136-145)
[2021-12-20 13:46] LABS: Blood Urea Nitrogen 6 mg/dl (9-20); Estimated Glomerular Filt Rate 118 ml/min (>60); GFR (African American) 143 ML/MIN (>60)
[2021-12-20 13:47] LABS: Alanine Aminotransferase 48 U/L (12-78); Albumin Level 3.8 g/dl (3.5-5.0); Albumin/Globulin Ratio 1.3 (1.1-1.8); Alkaline Phosphatase 111 U/L (38-126); Anion Gap 7.7 mEq/L (5-15); Aspartate Amino Transferase 40 U/L (17-59); Bilirubin,Total 1.5 mg/dl (0.2-1.3); Calcium 9.1 mg/dl (8.4-10.2); Carbon Dioxide 32 mmol/L (22.0-30.0); Globulin 2.9 g/dL (1.3-3.2); Glucose 106 mg/dl (74-100); Total Protein,Serum 6.7 g/dl (6.3-8.2)
[2021-12-21 13:12] LABS: Immunoglobulin A, Qn 315 mg/dL (90-386); Immunoglobulin G, Qn 1251 mg/dL (603-1613); Immunoglobulin M, Qn 29 mg/dL (20-172)
[2021-12-21 15:15] LABS: Albumin 3.7 g/dL (2.9-4.4); Alpha-1-Globulin 0.2 g/dL (0.0-0.4); Alpha-2-Globulin 0.7 g/dL (0.4-1.0); Gamma Globulin 1.2 g/dL (0.4-1.8); Protein, Total 6.8 g/dL (6.0-8.5)
[2022-01-04 22:16] LABS: Free Kappa Lt Chains 23.9; Free Lambda Lt Chains 17.8
== END ==
PROVIDERS: PCP Internal Medicine Adolescent Medicine; Visit Provider Internal Medicine Medical Oncology
DX: C90.00 Multiple myeloma not having achieved remission (principal)
CPT/HCPCS: 36415; 77075; 80053; 82784; 83883; 84155; 84165; 85025; 86334

== ENCOUNTER → 2022-01-04 13:06 | Outpatient (CLI) | payer MEDICARE, SELFPAY ==
--- NOTE | 2022-01-04 13:15 | CT_ITS ---
FINAL REPORT CLINICAL HISTORY: Multiple myeloma not having achieved remission pt was instructed to hydrate well for the rest of the day 75ml isovue 370 given COMPARISON: 04/16/2021 FINDINGS: CT CHEST W/CONTRAST Axial CT images of the chest were obtained with contrast. Coronal reformatted images were also obtained. This study was performed with techniques to keep radiation doses as low as reasonably achievable, (ALARA). Individualized dose reduction techniques using automated exposure control or adjustment of mA and/or KV according to the patient's size were employed. There is no evidence of mediastinal or hilar mass or adenopathy. No axillary mass or adenopathy is identified. On lung window images, there is a new 6 mm lateral right upper lobe nodule on image 26. There is a persistent irregular opacity in the minor fissure measuring approximately 7 mm which is stable. There is mild dependent atelectasis or scarring. There is a calcified granuloma in the right lung. Limited images of the upper abdomen reveal a left adrenal nodule consistent with an adenoma, stable. IMPRESSION: New 6 mm right upper lobe nodule, inflammatory or neoplastic. This could be further evaluated with a follow-up chest CT in 6 months. Other findings are stable. Reviewed, Interpreted and Dictated by Jonathan Tavarez III, MD Transcribed by Tracie Smart Authenticated and [facility]
== END ==
PROVIDERS: PCP Internal Medicine Adolescent Medicine; Visit Provider Internal Medicine Medical Oncology
DX: C90.00 Multiple myeloma not having achieved remission (principal)
CPT/HCPCS: 71270; Q9967

== ENCOUNTER → 2022-02-28 10:50 | Outpatient (CLI) | payer MEDICARE, SELFPAY ==
[2022-02-28 11:23] LABS: Basophils # 0.1 K/mm3 (0-0.2); Basophils % 1.5 % (0.1-2.0); Eosinophils # 0.3 K/mm3 (0.0-0.4); Eosinophils % 8.5 % (0.1-12.0); Hemoglobin 15.2 g/dL (14.1-18.0); Lymphocytes # 1.4 K/mm3 (0.7-4.5); Lymphocytes % 35.9 % (10-50); Mean Corpuscular HGB Conc 32.2 g/dL (31.8-35.4); Mean Corpuscular Hemoglobin 33.1 pg (27.0-31.2); Mean Corpuscular Volume 102.7 fl (80-94); Mean Platelet Volume 8.1 fl (7.4-10.4); Monocytes # 0.5 K/mm3 (0.1-1.0); Monocytes % 11.5 % (1.7-9.3); Neutrophils # 1.7 K/mm3 (1.8-7.8); Neutrophils % 42.6 % (37.0-80.0); Platelet Count 166 K/mm3 (142-424); Red Blood Count 4.58 M/mm3 (4.60-6.20); Red Cell Distribution Width 14.2 % (11.5-17.5)
[2022-02-28 11:29] LABS: Alanine Aminotransferase 37 U/L (12-78); Albumin Level 3.8 g/dl (3.5-5.0); Albumin/Globulin Ratio 1.3 (1.1-1.8); Alkaline Phosphatase 134 U/L (38-126); Anion Gap 10.1 mEq/L (5-15); Aspartate Amino Transferase 31 U/L (17-59); Bilirubin,Total 1.6 mg/dl (0.2-1.3); Blood Urea Nitrogen 10 mg/dl (9-20); Calcium 8.9 mg/dl (8.4-10.2); Carbon Dioxide 32 mmol/L (22.0-30.0); Chloride 104 mmol/L (98-107); Estimated Glomerular Filt Rate 88 ml/min (>60); GFR (African American) 107 ML/MIN (>60); Glucose 103 mg/dl (74-100); Potassium 4.1 mmoL/L (3.5-5.1); Sodium 142 mmol/L (136-145); Total Protein,Serum 6.8 g/dl (6.3-8.2)
[2022-03-01 16:13] LABS: Albumin 3.7 g/dL (2.9-4.4); Alpha-1-Globulin 0.2 g/dL (0.0-0.4); Alpha-2-Globulin 0.8 g/dL (0.4-1.0); Gamma Globulin 1.1 g/dL (0.4-1.8); Immunoglobulin A, Qn 323 mg/dL (90-386); Immunoglobulin G, Qn 1218 mg/dL (603-1613); Immunoglobulin M, Qn 28 mg/dL (20-172)
== END ==
PROVIDERS: PCP Internal Medicine Adolescent Medicine; Visit Provider Internal Medicine Medical Oncology
DX: C90.00 Multiple myeloma not having achieved remission (principal)
CPT/HCPCS: 36415; 80053; 82784; 84155; 84165; 85025; 86334

== ENCOUNTER → 2022-05-28 12:09 | Outpatient (CLI) | payer MEDICARE, SELFPAY ==
--- NOTE | 2022-05-28 12:39 | CT_ITS ---
FINAL REPORT TECHNIQUE: After the administration of intravenous contrast, axial images through the chest were performed by computed tomography.This study was performed with techniques to keep radiation doses as low as reasonably achievable, (ALARA). Individualized dose reduction techniques using automated exposure control or adjustment of mA and/or kV according to the patient''s size were employed. CLINICAL HISTORY: MULTIPLE MYELOMA COMPARISON: December 2021 FINDINGS: There is no axillary adenopathy. There is no hilar or mediastinal adenopathy. The heart size is normal. There is no pericardial or pleural effusion. Limited images of the upper abdomen demonstrate stable left adrenal gland nodule that likely represents an adenoma. There is mild right base atelectasis or pneumonia. There is a calcified granuloma in the right upper lobe. There is a nonspecific 3 mm nodule in the right upper lobe. IMPRESSION: Mild right basilar atelectasis or pneumonia. Nonspecific 3 mm nodule in the right upper lobe. Reviewed, Interpreted and Dictated by Jonathan Tavarez III, MD Transcribed by Jeferson Abraham Authenticated and [facility]
[2022-05-28 12:44] LABS: Basophils # 0.1 K/mm3 (0-0.2); Eosinophils # 0.1 K/mm3 (0.0-0.4); Eosinophils % 1.7 % (0.1-12.0); Hematocrit 43.2 % (42.0-52.0); Hemoglobin 14.2 g/dL (14.1-18.0); Lymphocytes # 1.4 K/mm3 (0.7-4.5); Lymphocytes % 27.2 % (10-50); Mean Corpuscular HGB Conc 32.8 g/dL (31.8-35.4); Mean Corpuscular Hemoglobin 33.6 pg (27.0-31.2); Mean Corpuscular Volume 102.6 fl (80-94); Monocytes # 0.5 K/mm3 (0.1-1.0); Monocytes % 9.6 % (1.7-9.3); Neutrophils # 3.1 K/mm3 (1.8-7.8); Neutrophils % 60.5 % (37.0-80.0); Platelet Count 202 K/mm3 (142-424); Red Blood Count 4.21 M/mm3 (4.60-6.20); Red Cell Distribution Width 13.1 % (11.5-17.5); White Blood Count 5.1 K/mm3 (4.8-10.8)
[2022-05-28 13:20] LABS: Alanine Aminotransferase 36 U/L (12-78); Albumin Level 3.8 g/dl (3.5-5.0); Albumin/Globulin Ratio 1.4 (1.1-1.8); Alkaline Phosphatase 110 U/L (38-126); Anion Gap 9.8 mEq/L (5-15); Aspartate Amino Transferase 27 U/L (17-59); Bilirubin,Total 0.6 mg/dl (0.2-1.3); Blood Urea Nitrogen 10 mg/dl (9-20); Calcium 9.2 mg/dl (8.4-10.2); Carbon Dioxide 29 mmol/L (22.0-30.0); Chloride 107 mmol/L (98-107); Estimated Glomerular Filt Rate 101 ml/min (>60); GFR (African American) 122 ML/MIN (>60); Globulin 2.7 g/dL (1.3-3.2); Glucose 88 mg/dl (74-100); Potassium 3.8 mmoL/L (3.5-5.1); Sodium 142 mmol/L (136-145); Total Protein,Serum 6.5 g/dl (6.3-8.2)
[2022-05-29 09:34] LABS: Chol/HDL Ratio 4.5 (1-3.5); Cholesterol 134 mg/dl (140-200); HDL Cholesterol 30 mg/dl (40-60); Triglycerides 121 mg/dl (30-150); VLDL Cholesterol 24 mg/dL (0-40)
[2022-05-29 09:45] LABS: Direct LDL Cholesterol 80.44 mg/dL (100-129)
[2022-05-29 16:12] LABS: Albumin 3.5 g/dL (2.9-4.4); Alpha-1-Globulin 0.2 g/dL (0.0-0.4); Alpha-2-Globulin 0.7 g/dL (0.4-1.0); Gamma Globulin 1.1 g/dL (0.4-1.8); Protein, Total 6.5 g/dL (6.0-8.5)
[2022-05-30 13:09] LABS: Immunoglobulin A, Qn 311 mg/dL (90-386); Immunoglobulin G, Qn 1148 mg/dL (603-1613); Immunoglobulin M, Qn 34 mg/dL (20-172)
== END ==
PROVIDERS: PCP Internal Medicine Adolescent Medicine; Visit Provider Internal Medicine Medical Oncology
DX: C90.00 Multiple myeloma not having achieved remission (principal); C79.51 Secondary malignant neoplasm of bone; Z79.899 Other long term (current) drug therapy
CPT/HCPCS: 36415; 71260; 80053; 80061; 82784; 84155; 84165; 85025; 86334; Q9967

== ENCOUNTER → 2022-08-28 13:48 | Outpatient (CLI) | payer MEDICARE, SELFPAY ==
[2022-08-28 14:51] LABS: Chloride 105 mmol/L (98-107); Potassium 4.6 mmoL/L (3.5-5.1); Sodium 139 mmol/L (136-145)
[2022-08-28 14:54] LABS: Alanine Aminotransferase 46 U/L (12-78); Albumin Level 3.9 g/dl (3.5-5.0); Albumin/Globulin Ratio 1.4 (1.1-1.8); Alkaline Phosphatase 98 U/L (38-126); Anion Gap 8.6 mEq/L (5-15); Aspartate Amino Transferase 33 U/L (17-59); Bilirubin,Total 1.5 mg/dl (0.2-1.3); Blood Urea Nitrogen 11 mg/dl (9-20); Calcium 8.8 mg/dl (8.4-10.2); Carbon Dioxide 30 mmol/L (22.0-30.0); Estimated Glomerular Filt Rate 88 ml/min (>60); GFR (African American) 107 ML/MIN (>60); Globulin 2.8 g/dL (1.3-3.2); Glucose 100 mg/dl (74-100); Total Protein,Serum 6.7 g/dl (6.3-8.2)
[2022-08-28 16:58] LABS: Basophils % 0.8 % (0.1-2.0); Eosinophils # 0.1 K/mm3 (0.0-0.4); Eosinophils % 1.8 % (0.1-12.0); Hematocrit 48.8 % (42.0-52.0); Mean Corpuscular HGB Conc 32.7 g/dL (31.8-35.4); Mean Corpuscular Hemoglobin 32.6 pg (27.0-31.2); Mean Corpuscular Volume 99.7 fl (80-94); Monocytes # 0.3 K/mm3 (0.1-1.0); Monocytes % 8.4 % (1.7-9.3); Neutrophils # 2.6 K/mm3 (1.8-7.8); Platelet Count 198 K/mm3 (142-424); Red Cell Distribution Width 13.5 % (11.5-17.5); White Blood Count 4.1 K/mm3 (4.8-10.8)
[2022-08-30 17:07] LABS: Immunoglobulin A, Qn 313 mg/dL (90-386); Immunoglobulin G, Qn 1100 mg/dL (603-1613); Immunoglobulin M, Qn 42 mg/dL (20-172)
[2022-09-05 23:36] LABS: Albumin 3.5; Alpha-1-Globulin 0.3; Alpha-2-Globulin 0.8; Gamma Globulin 1.1; Protein, Total 6.7
[2022-09-05 23:37] LABS: Free Kappa Lt Chains 19.8; Free Lambda Lt Chains 12.3
== END ==
PROVIDERS: PCP Internal Medicine Adolescent Medicine; Visit Provider Internal Medicine Medical Oncology
DX: C90.00 Multiple myeloma not having achieved remission (principal)
CPT/HCPCS: 36415; 80053; 82784; 83883; 84155; 84165; 85025; 86334

== ENCOUNTER → 2022-09-04 14:36 | Outpatient (CLI) | payer MEDICARE, SELFPAY ==
--- NOTE | 2022-09-04 14:40 | CT_ITS ---
FINAL REPORT CLINICAL HISTORY: MULTIPLE MYELOMA CT LOW DOSE MYELOMA SCAN FINDINGS: CT HEAD, NECK, CHEST, ABDOMEN, PELVIS AND LOWER EXTREMITIES WITHOUT CONTRAST Axial CT images were performed from the head through the ankles utilizing a low-dose protocol. Coronal reformatted images were submitted. Head: There is no mass effect or midline shift. There is no acute hemorrhage. Chest: There is no lung mass or consolidation. Abdomen and pelvis: Noncontrast evaluation of the solid abdominal organs are without acute abnormality. No evidence of bowel obstruction. Osseous structures: No lytic lesions or acute osseous abnormality. IMPRESSION: No convincing lytic lesions. Reviewed, Interpreted and Dictated by Natalia Smith MD Transcribed by Jeferson Abraham Authenticated and [facility]
== END ==
PROVIDERS: PCP Internal Medicine Adolescent Medicine; Visit Provider Internal Medicine Medical Oncology
DX: C90.00 Multiple myeloma not having achieved remission (principal)
CPT/HCPCS: 76497

== ENCOUNTER → 2022-11-13 13:58 | Outpatient (CLI) | payer MEDICARE, SELFPAY ==
[2022-11-13 14:32] LABS: Basophils % 0.3 % (0.1-2.0); Eosinophils # 0.1 K/mm3 (0.0-0.4); Eosinophils % 2.5 % (0.1-12.0); Hematocrit 48.9 % (42.0-52.0); Hemoglobin 15.9 g/dL (14.1-18.0); Lymphocytes # 1.3 K/mm3 (0.7-4.5); Lymphocytes % 31.5 % (10-50); Mean Corpuscular HGB Conc 32.5 g/dL (31.8-35.4); Mean Corpuscular Hemoglobin 32.2 pg (27.0-31.2); Monocytes # 0.5 K/mm3 (0.1-1.0); Monocytes % 11.7 % (1.7-9.3); Neutrophils # 2.2 K/mm3 (1.8-7.8); Platelet Count 172 K/mm3 (142-424); Red Blood Count 4.94 M/mm3 (4.60-6.20); Red Cell Distribution Width 13.5 % (11.5-17.5); White Blood Count 4.1 K/mm3 (4.8-10.8)
[2022-11-13 16:18] LABS: Alanine Aminotransferase 50 U/L (12-78); Albumin Level 3.9 g/dl (3.5-5.0); Albumin/Globulin Ratio 1.3 (1.1-1.8); Alkaline Phosphatase 108 U/L (38-126); Anion Gap 11.1 mEq/L (5-15); Aspartate Amino Transferase 45 U/L (17-59); Bilirubin,Total 1.9 mg/dl (0.2-1.3); Blood Urea Nitrogen 12 mg/dl (9-20); Calcium 8.8 mg/dl (8.4-10.2); Carbon Dioxide 30 mmol/L (22.0-30.0); Chloride 104 mmol/L (98-107); Estimated Glomerular Filt Rate 101 ml/min (>60); GFR (African American) 122 ML/MIN (>60); Globulin 2.9 g/dL (1.3-3.2); Glucose 91 mg/dl (74-100); Potassium 4.1 mmoL/L (3.5-5.1); Sodium 141 mmol/L (136-145); Total Protein,Serum 6.8 g/dl (6.3-8.2)
[2022-11-15 16:13] LABS: Immunoglobulin A, Qn 288 mg/dL (90-386); Immunoglobulin G, Qn 1059 mg/dL (603-1613); Immunoglobulin M, Qn 35 mg/dL (20-172)
[2022-12-01 22:33] LABS: Albumin 3.8; Alpha-1-Globulin 0.2; Alpha-2-Globulin 0.7; Protein, Total 6.7
[2022-12-01 22:35] LABS: Free Kappa Lt Chains 19.2; Free Lambda Lt Chains 11.3
== END ==
LOC: LAB 13:59
PROVIDERS: PCP Internal Medicine Adolescent Medicine; Visit Provider Internal Medicine Medical Oncology
DX: Z85.79 Personal history of other malignant neoplasms of lymphoid, hematopoietic and related tissues (principal)
CPT/HCPCS: 36415; 80053; 82784; 83883; 84155; 84165; 85025; 86334

== ENCOUNTER → 2023-02-27 12:10 | Outpatient (CLI) | payer MEDICARE, SELFPAY ==
--- NOTE | 2023-02-27 12:19 | CT_ITS ---
FINAL REPORT CLINICAL HISTORY: MULTIPLE MYELOMA 75 cc of isovue 370 saline flush COMPARISON: 05/28/2022 FINDINGS: Axial CT images of the chest were obtained with contrast. Coronal and sagittal reformatted images were also obtained. This study was performed with techniques to keep radiation doses as low as reasonably achievable, (ALARA). Individualized dose reduction techniques using automated exposure control or adjustment of mA and/or KV according to the patient's size were employed. There is no evidence of mediastinal or hilar mass or adenopathy. No axillary mass or adenopathy is identified. On lung window images, no pulmonary mass or dominant pulmonary nodule is identified. The 3 mm right upper lobe nodule noted on the prior chest CT of May 2022 is no longer seen. There is mild bibasilar atelectasis. Limited images of the upper abdomen reveal fatty infiltration of the liver. There is a left adrenal nodule which measures 19 mm and is stable since the prior CT, likely an adenoma. IMPRESSION: 3 mm right upper lobe nodule noted on the prior chest CT of May 2022 is no longer seen. Fatty infiltration of the liver. Left adrenal nodule, 19 mm, is stable and likely represents an adenoma. Reviewed, Interpreted and Dictated by Jonathan Tavarez III, MD Transcribed by Chiqui Burgos Authenticated and [facility]
[2023-02-27 12:59] LABS: Basophils % 0.8 % (0.1-2.0); Eosinophils # 0.1 K/mm3 (0.0-0.4); Eosinophils % 1.3 % (0.1-12.0); Hematocrit 49.8 % (42.0-52.0); Hemoglobin 16.2 g/dL (14.1-18.0); Lymphocytes # 1.3 K/mm3 (0.7-4.5); Lymphocytes % 28.8 % (10-50); Mean Corpuscular HGB Conc 32.5 g/dL (31.8-35.4); Mean Corpuscular Hemoglobin 32.2 pg (27.0-31.2); Mean Corpuscular Volume 99.1 fl (80-94); Monocytes # 0.5 K/mm3 (0.1-1.0); Monocytes % 10.9 % (1.7-9.3); Neutrophils # 2.7 K/mm3 (1.8-7.8); Neutrophils % 58.2 % (37.0-80.0); Platelet Count 166 K/mm3 (142-424); Red Blood Count 5.03 M/mm3 (4.60-6.20); Red Cell Distribution Width 13.5 % (11.5-17.5); White Blood Count 4.6 K/mm3 (4.8-10.8)
[2023-02-27 13:31] LABS: Chloride 106 mmol/L (98-107)
[2023-02-27 13:32] LABS: Potassium 4.3 mmoL/L (3.5-5.1); Sodium 141 mmol/L (136-145)
[2023-02-27 13:34] LABS: Alanine Aminotransferase 48 U/L (12-78); Alkaline Phosphatase 105 U/L (38-126); Aspartate Amino Transferase 34 U/L (17-59); Bilirubin,Total 1.8 mg/dl (0.2-1.3); Blood Urea Nitrogen 13 mg/dl (9-20); Estimated Glomerular Filt Rate 101 ml/min (>60); GFR (African American) 122 ML/MIN (>60)
[2023-02-27 13:35] LABS: Albumin Level 3.9 g/dl (3.5-5.0); Albumin/Globulin Ratio 1.4 (1.1-1.8); Anion Gap 11.3 mEq/L (5-15); Calcium 9.3 mg/dl (8.4-10.2); Carbon Dioxide 28 mmol/L (22.0-30.0); Globulin 2.7 g/dL (1.3-3.2); Glucose 103 mg/dl (74-100); Total Protein,Serum 6.6 g/dl (6.3-8.2)
[2023-03-03 13:17] LABS: Immunoglobulin A, Qn 301; Immunoglobulin G, Qn 1013
[2023-03-03 13:18] LABS: Immunoglobulin M, Qn 37; Protein, Total 6.6
[2023-03-03 13:19] LABS: Albumin 3.6; Alpha-1-Globulin 0.2; Alpha-2-Globulin 0.7
[2023-03-03 13:20] LABS: Gamma Globulin 0.9
[2023-03-03 13:21] LABS: Free Kappa Lt Chains 17.4
[2023-03-03 13:22] LABS: Free Lambda Lt Chains 13.1
== END ==
LOC: RAD 12:10
PROVIDERS: PCP Internal Medicine Adolescent Medicine; Visit Provider Internal Medicine Medical Oncology
DX: C90.00 Multiple myeloma not having achieved remission (principal)
CPT/HCPCS: 36415; 71260; 80053; 82784; 83883; 84155; 84165; 85025; 86334; Q9967

== ENCOUNTER → 2023-05-28 13:44 | Outpatient (CLI) | payer MEDICARE, SELFPAY ==
[2023-05-28 14:24] LABS: Basophils % 0.5 % (0.1-2.0); Eosinophils # 0.1 K/mm3 (0.0-0.4); Eosinophils % 1.1 % (0.1-12.0); Hematocrit 49.9 % (42.0-52.0); Hemoglobin 17.1 g/dL (14.1-18.0); Lymphocytes # 1.3 K/mm3 (0.7-4.5); Lymphocytes % 26.4 % (10-50); Mean Corpuscular HGB Conc 34.2 g/dL (31.8-35.4); Mean Corpuscular Hemoglobin 33.6 pg (27.0-31.2); Mean Corpuscular Volume 98.2 fl (80-94); Mean Platelet Volume 8.2 fl (7.4-10.4); Monocytes # 0.6 K/mm3 (0.1-1.0); Monocytes % 11.4 % (1.7-9.3); Neutrophils % 60.6 % (37.0-80.0); Platelet Count 139 K/mm3 (142-424); Red Blood Count 5.08 M/mm3 (4.60-6.20); Red Cell Distribution Width 13.3 % (11.5-17.5); White Blood Count 4.9 K/mm3 (4.8-10.8)
[2023-05-28 14:36] LABS: Alanine Aminotransferase 46 U/L (12-78); Albumin Level 4.2 g/dl (3.5-5.0); Albumin/Globulin Ratio 1.4 (1.1-1.8); Alkaline Phosphatase 95 U/L (38-126); Anion Gap 9.9 mEq/L (5-15); Aspartate Amino Transferase 32 U/L (17-59); Bilirubin,Total 1.1 mg/dl (0.2-1.3); Blood Urea Nitrogen 12 mg/dl (9-20); Calcium 8.5 mg/dl (8.4-10.2); Carbon Dioxide 30 mmol/L (22.0-30.0); Chloride 104 mmol/L (98-107); Estimated Glomerular Filt Rate 88 ml/min (>60); GFR (African American) 106 ML/MIN (>60); Glucose 101 mg/dl (74-100); Potassium 3.9 mmoL/L (3.5-5.1); Sodium 140 mmol/L (136-145); Total Protein,Serum 7.2 g/dl (6.3-8.2)
[2023-05-29 16:13] LABS: Albumin 3.5 g/dL (2.9-4.4); Alpha-1-Globulin 0.2 g/dL (0.0-0.4); Alpha-2-Globulin 0.8 g/dL (0.4-1.0); Gamma Globulin 1.1 g/dL (0.4-1.8); Immunoglobulin A, Qn 336 mg/dL (90-386); Immunoglobulin G, Qn 1001 mg/dL (603-1613); Immunoglobulin M, Qn 50 mg/dL (20-172); Protein, Total 6.9 g/dL (6.0-8.5)
== END ==
PROVIDERS: PCP Internal Medicine Adolescent Medicine; Visit Provider Internal Medicine Medical Oncology
DX: C90.00 Multiple myeloma not having achieved remission (principal)
CPT/HCPCS: 36415; 80053; 82784; 84155; 84165; 85025; 86334

== ENCOUNTER → 2023-06-13 12:46 | Outpatient (CLI) | payer MEDICARE, SELFPAY ==
[2023-06-19 12:21] LABS: Free Kappa Lt Chains 16.9
== END ==
LOC: LAB 12:51
PROVIDERS: PCP Internal Medicine Adolescent Medicine; Visit Provider Internal Medicine Medical Oncology
DX: C90.00 Multiple myeloma not having achieved remission (principal)
CPT/HCPCS: 36415; 83883

== ENCOUNTER 2023-10-01 13:45 | Outpatient (CLI) | payer MEDICARE, SELFPAY | END 2023-10-01 23:59 | LOC: RAD 13:45 | PROVIDERS: PCP Internal Medicine Adolescent Medicine; Visit Provider Internal Medicine Medical Oncology | DX: Z87.891 Personal history of nicotine dependence (principal); Z12.2 Encounter for screening for malignant neoplasm of respiratory organs; C90.00 Multiple myeloma not having achieved remission | CPT/HCPCS: 76497 ==

== ENCOUNTER 2023-10-07 10:48 | Outpatient (CLI) | payer MEDICARE, SELFPAY ==
--- NOTE | 2023-10-07 10:54 | CT_ITS ---
FINAL REPORT CLINICAL HISTORY: multiple myeloma COMPARISON: 09/04/2022 FINDINGS: CLINICAL HISTORY: MULTIPLE MYELOMA CT LOW DOSE MYELOMA SCAN FINDINGS: CT HEAD, NECK, CHEST, ABDOMEN, PELVIS AND LOWER EXTREMITIES WITHOUT CONTRAST Axial CT images were performed from the head through the ankles utilizing a low-dose protocol. Coronal and sagittal reformatted images were submitted. Head: There is no mass effect or midline shift. There is no acute hemorrhage. Chest: There is no lung mass or consolidation. Abdomen and pelvis: Noncontrast evaluation of the solid abdominal organs are without acute abnormality. No evidence of bowel obstruction. The bladder is incompletely is distended. Osseous structures: No lytic lesions or acute osseous abnormality. There is loss of height of the left side of the L5 vertebral body with hypertrophic changes of degenerative disc disease present at the L5-S1 level. IMPRESSION: No convincing lytic lesions. Reviewed, Interpreted and Dictated by Maxi Pate MD Transcribed by Chiqui Burgos Authenticated and [facility]
== END 2023-10-07 23:59 | disposition home or self-care (01) ==
LOC: RAD 10:49
PROVIDERS: PCP Internal Medicine Adolescent Medicine; Visit Provider Internal Medicine Medical Oncology
DX: C85.90 Non-Hodgkin lymphoma, unspecified, unspecified site (principal); C90.00 Multiple myeloma not having achieved remission
CPT/HCPCS: 76497

== ENCOUNTER 2023-12-05 15:21 | Outpatient (CLI) | payer MEDICARE, SELFPAY ==
[2023-12-05 15:42] LABS: Basophils # 0.1 K/mm3 (0-0.2); Basophils % 1.2 % (0.1-2.0); Eosinophils # 0.1 K/mm3 (0.0-0.4); Eosinophils % 2.5 % (0.1-12.0); Hematocrit 47.1 % (42.0-52.0); Hemoglobin 15.8 g/dL (14.1-18.0); Lymphocytes # 1.6 K/mm3 (0.7-4.5); Lymphocytes % 30.7 % (10-50); Mean Corpuscular HGB Conc 33.6 g/dL (31.8-35.4); Mean Corpuscular Hemoglobin 33.1 pg (27.0-31.2); Mean Corpuscular Volume 98.5 fl (80-94); Monocytes # 0.6 K/mm3 (0.1-1.0); Monocytes % 12.3 % (1.7-9.3); Neutrophils # 2.8 K/mm3 (1.8-7.8); Neutrophils % 53.3 % (37.0-80.0); Platelet Count 171 K/mm3 (142-424); Red Blood Count 4.78 M/mm3 (4.60-6.20); White Blood Count 5.2 K/mm3 (4.8-10.8)
[2023-12-05 16:08] LABS: Chloride 108 mmol/L (98-107); Sodium 139 mmol/L (136-145)
[2023-12-05 16:09] LABS: Potassium 4.5 mmoL/L (3.5-5.1)
[2023-12-05 16:11] LABS: Alanine Aminotransferase 33 U/L (12-78); Albumin/Globulin Ratio 1.4 (1.1-1.8); Alkaline Phosphatase 75 U/L (38-126); Anion Gap 9.5 mEq/L (5-15); Aspartate Amino Transferase 32 U/L (17-59); Blood Urea Nitrogen 18 mg/dl (9-20); Carbon Dioxide 26 mmol/L (22.0-30.0); Estimated Glomerular Filt Rate 88 ml/min (>60); GFR (African American) 106 ML/MIN (>60); Globulin 2.9 g/dL (1.3-3.2); Total Protein,Serum 6.9 g/dl (6.3-8.2)
[2023-12-05 16:12] LABS: Calcium 9.5 mg/dl (8.4-10.2); Glucose 79 mg/dl (74-100)
[2023-12-08 14:00] LABS: Albumin 3.4 g/dL (2.9-4.4); Alpha-1-Globulin 0.2 g/dL (0.0-0.4); Alpha-2-Globulin 0.8 g/dL (0.4-1.0); Gamma Globulin 0.9 g/dL (0.4-1.8); Protein, Total 6.4 g/dL (6.0-8.5)
[2023-12-08 14:30] LABS: Immunoglobulin A, Qn 301 mg/dL (90-386); Immunoglobulin G, Qn 995 mg/dL (603-1613); Immunoglobulin M, Qn 43 mg/dL (20-172)
[2023-12-11 10:15] LABS: Immunoglobulin E, Total 717 IU/mL (6-495)
[2023-12-27 10:42] LABS: Free Kappa Lt Chains 16.7; PDF SCANNED IMAGE
[2023-12-27 10:43] LABS: Free Lambda Lt Chains 12.8
== END 2023-12-05 23:59 | disposition home or self-care (01) ==
PROVIDERS: PCP Internal Medicine Adolescent Medicine; Visit Provider Internal Medicine Medical Oncology
DX: C90.00 Multiple myeloma not having achieved remission (principal); C85.90 Non-Hodgkin lymphoma, unspecified, unspecified site
CPT/HCPCS: 36415; 80053; 82784; 82785; 83883; 84155; 84165; 85025; 86334

== ENCOUNTER → 2024-01-29 11:14 | Outpatient (CLI) | payer MEDICARE, SELFPAY | PROVIDERS: PCP Internal Medicine Adolescent Medicine; Visit Provider Internal Medicine Adolescent Medicine | DX: G47.33 Obstructive sleep apnea (adult) (pediatric) (principal); G47.36 Sleep related hypoventilation in conditions classified elsewhere | CPT/HCPCS: G0399 ==

== ENCOUNTER 2024-06-19 12:05 | Outpatient (CLI) | payer MEDICARE, SELFPAY ==
[2024-06-19 12:30] LABS: Basophils % 0.7 % (0.1-2.0); Eosinophils # 0.1 K/mm3 (0.0-0.4); Eosinophils % 1.8 % (0.1-12.0); Hematocrit 45.5 % (42.0-52.0); Hemoglobin 15.5 g/dL (14.1-18.0); Lymphocytes # 1.7 K/mm3 (0.7-4.5); Lymphocytes % 29.2 % (10-50); Mean Corpuscular HGB Conc 34.1 g/dL (31.8-35.4); Mean Corpuscular Hemoglobin 32.6 pg (27.0-31.2); Mean Corpuscular Volume 95.6 fl (80-94); Mean Platelet Volume 10.6 fl (7.4-10.4); Monocytes # 0.9 K/mm3 (0.1-1.0); Monocytes % 15.3 % (1.7-9.3); Neutrophils % 52.6 % (37.0-80.0); Platelet Count 158 K/mm3 (142-424); Red Blood Count 4.76 M/mm3 (4.60-6.20); Red Cell Distribution Width 12.2 % (11.5-17.5); White Blood Count 5.7 K/mm3 (4.8-10.8)
[2024-06-19 13:04] LABS: Alanine Aminotransferase 39 U/L (12-78); Albumin/Globulin Ratio 1.6 (1.1-1.8); Alkaline Phosphatase 88 U/L (38-126); Anion Gap 9.5 mEq/L (5-15); Aspartate Amino Transferase 33 U/L (17-59); Blood Urea Nitrogen 20 mg/dl (9-20); Calcium 9.4 mg/dl (8.4-10.2); Carbon Dioxide 29 mmol/L (22.0-30.0); Chloride 108 mmol/L (98-107); Estimated Glomerular Filt Rate 88 ml/min (>60); GFR (African American) 106 ML/MIN (>60); Globulin 2.5 g/dL (1.3-3.2); Glucose 93 mg/dl (74-100); Potassium 4.5 mmoL/L (3.5-5.1); Sodium 142 mmol/L (136-145); Total Protein,Serum 6.5 g/dl (6.3-8.2)
[2024-06-21 16:10] LABS: Albumin 3.6 g/dL (2.9-4.4); Alpha-1-Globulin 0.2 g/dL (0.0-0.4); Alpha-2-Globulin 0.8 g/dL (0.4-1.0); Gamma Globulin 0.9 g/dL (0.4-1.8); Protein, Total 6.7 g/dL (6.0-8.5)
[2024-06-21 17:34] LABS: Free Kappa Lt Chains 23.9 mg/L (3.3-19.4); Free Lambda Lt Chains 14.7 mg/L (5.7-26.3)
[2024-06-22 16:35] LABS: Immunoglobulin A, Qn 327 mg/dL (90-386); Immunoglobulin G, Qn 1023 mg/dL (603-1613); Immunoglobulin M, Qn 45 mg/dL (20-172)
[2024-06-23 10:17] LABS: PDF SCANNED IMAGE
== END 2024-06-19 23:59 | disposition home or self-care (01) ==
LOC: LAB 12:06
PROVIDERS: PCP Internal Medicine Adolescent Medicine; Visit Provider Internal Medicine Medical Oncology
DX: C90.00 Multiple myeloma not having achieved remission (principal)
CPT/HCPCS: 36415; 80053; 82784; 83883; 84155; 84165; 85025; 86334

== ENCOUNTER 2024-08-10 09:38 | Outpatient (CLI) | payer MEDICARE, SELFPAY ==
[2024-08-10 10:35] VITALS: PULSE 61; PULSE 65
[2024-08-10] MEDS: ALBUTEROL 0.083% 2.5 MG/3 ML NEB IH (10:35)
== END 2024-08-10 23:59 | disposition home or self-care (01) ==
LOC: RT 09:39
PROVIDERS: PCP Internal Medicine Adolescent Medicine; Visit Provider Internal Medicine Adolescent Medicine
DX: R06.09 Other forms of dyspnea (principal)
CPT/HCPCS: 94060; 94640; 94726; 94729; J7613

== ENCOUNTER 2024-08-19 13:00 | Outpatient (CLI) | payer MEDICARE, SELFPAY ==
--- NOTE | 2024-08-19 13:08 | CT_ITS ---
FINAL REPORT CLINICAL HISTORY: DYSPNEA ON EFFORT COMPARISON: 02/27/2023 FINDINGS: CT CHEST WITHOUT CONTRAST TECHNIQUE: Axial CT without contrast No acute lung disease is present . There is no evidence of chronic lung disease. No pleural or pericardial effusion is seen . No adenopathy or mass lesion is present . Limited images of the upper abdomen reveal fatty liver. Left adrenal nodule is stable compatible with a benign adenoma. IMPRESSION: 1. Stable chest CT without findings to account for symptoms. This study was performed using automated techniques to achieve radiation exposure as low as reasonably achievable Reviewed, Interpreted and Dictated by Angy Flores MD Transcribed by Francesca Cintron Authenticated and [facility]
== END 2024-08-19 23:59 | disposition home or self-care (01) ==
LOC: RAD 13:01
PROVIDERS: PCP Internal Medicine Adolescent Medicine; Visit Provider Internal Medicine Adolescent Medicine
DX: R06.09 Other forms of dyspnea (principal)
CPT/HCPCS: 71250

== ENCOUNTER 2024-08-31 09:13 | Outpatient (CLI) | payer MEDICARE, SELFPAY ==
--- NOTE | 2024-08-31 09:19 | CA_ITS ---
APPROVED REPORT EXAM: Comprehensive 2D, Doppler, and color-flow Echocardiogram Waters[place] Program Manager: Casandra Domingo RDCS Ht: 6 ft 1 in Wt: 287lbs BSA: 2.51 BP: 127/92 mmHg Indications: CHEMO MULTIPLE MYELOMA RECENT D/C OF THESE CHECK LV FXN,HTN M-Mode Dimensions RVDd 2.77 cm (0.9-2.6) LA Diam 3.63 cm (1.9-4.0) LVDd 4.64 cm (3.5-5.7) LVDs 3.70 cm (3.5-5.7) IVSd 0.71 cm (0.6-1.1) PWd 0.80 cm (0.6-1.1) EF (Teich) 41.50% FS 20.30% EDV (Teich) 99.30 mL TAPSE 2.24 (<1.7) ESV (Teich) 58.10 mL LV Diastology E Decel Time 253 (160-240 msec) E/A Ratio 1.2 Mitral Valve MV E Max Estrada. 64.0 (40-130 cm/s) MV A Velocity 54.0 (40-130 cm/s) E/A Ratio 1.19 MV PHT 74.0 ms Left Ventricle The left ventricle is normal size. The left ventricular systolic function is normal. The left ventricular ejection fraction is within the normal range. There is increased LV wall thickness. There is normal LV segmental wall motion. The left ventricular diastolic function is normal. LVEF is 55%. Right Ventricle Right ventricle is mildly dilated. Right ventricle is mildly hypokinetic. Atria The left atrium size is normal. The right atrium size is normal. There is no Doppler evidence of interatrial shunt. Aortic Valve Aortic valve is mildly thickened. There is no aortic valvular stenosis. No aortic regurgitation is present. Mitral Valve The mitral valve is normal in structure. No evidence of mitral valve stenosis. No mitral regurgitation. Tricuspid Valve Tricuspid valve is grossly normal in structure and function. Trace tricuspid regurgitation. There is insufficient TR jet to estimate RVSP. Pulmonic Valve The pulmonary valve is normal in structure. Trace pulmonic regurgitation. Great Vessels The aortic root is normal in size. IVC is normal in size and collapses >50% with inspiration. Pericardium There is no pericardial effusion. Other Information Study Quality: Technically Difficult Conclusion Technically difficult study due to poor acoustic windows. Normal LV systolic function (LVEF 55%). Mild RV dilation with mild reduction in RV function. No significant valvular stenosis or regurgitation. Electronically signed by : Rubina Mendoza MD 09/06/2024 14:32:09
== END 2024-08-31 23:59 | disposition home or self-care (01) ==
LOC: RT 09:14
PROVIDERS: PCP Internal Medicine Adolescent Medicine; Visit Provider Internal Medicine Adolescent Medicine
DX: I51.7 Cardiomegaly (principal); R60.0 Localized edema; Z92.21 Personal history of antineoplastic chemotherapy
CPT/HCPCS: 93306

== ENCOUNTER 2024-09-01 10:59 | Outpatient (CLI) | payer MEDICARE, SELFPAY ==
[2024-09-01 11:03] LABS: Adenovirus,PCR Not Detected (NotDetected); Coronavirus 229E Not Detected (NotDetected); Coronavirus NL63 Not Detected (NotDetected); Coronavirus OC43 Not Detected (NotDetected); Coronovirus HKU1,PCR Not Detected (NotDetected); Human Metapneumovirus Not Detected (NotDetected); Influenza A, PCR Not Detected (NotDetected); Influenza AH1, 2009 Not Detected (NotDetected); Influenza AH1, PCR Not Detected (NotDetected); Influenza AH3,PCR Not Detected (NotDetected); Influenza B, PCR Not Detected (NotDetected); Parainfluenza 1, PCR Not Detected (NotDetected); Parainfluenza 2, PCR Not Detected (NotDetected); Parainfluenza 3, PCR Not Detected (NotDetected); Parainfluenza 4, PCR Not Detected (NotDetected); Rhinovirus/Enterovirus Not Detected (NotDetected)
[2024-09-01 11:04] LABS: Bordetella Pertussis Not Detected (NotDetected); Chlamydophila Pneumoniae, PCR Not Detected (NotDetected); Coronavirus 19, PCR Not Detected (NotDetected); Mycoplasma Pneumoniae, PCR Not Detected (NotDetected); Respiratory Syncytial Virus Not Detected (NotDetected)
--- NOTE | 2024-09-01 11:09 | XR_ITS ---
FINAL REPORT CLINICAL HISTORY: Shortness of breath, cough COMPARISON: None FINDINGS: PA and lateral views of the chest were obtained. No acute pulmonary density is evident. There is no evidence of effusion or other pleural disease. The mediastinum has a normal appearance. The cardiac silhouette is unremarkable. IMPRESSION: Unremarkable chest exam. Reviewed, Interpreted and Dictated by Angy Flores MD Transcribed by Hailey Darnell Authenticated and [facility]
== END 2024-09-01 23:59 | disposition home or self-care (01) ==
LOC: RAD 10:59
PROVIDERS: PCP Internal Medicine Adolescent Medicine; Visit Provider Internal Medicine Adolescent Medicine
DX: R06.02 Shortness of breath (principal); R05.1 Acute cough
CPT/HCPCS: 71046; 87633

== ENCOUNTER 2024-10-07 09:34 | Outpatient (CLI) | payer MEDICARE, SELFPAY ==
--- NOTE | 2024-10-07 10:00 | CT_ITS ---
FINAL REPORT TECHNIQUE: Axial CT images were performed from the head through the ankles utilizing a low-dose protocol. Coronal reformatted images were submitted. CLINICAL HISTORY: MULTIPLE MYELOMA COMPARISON: 10/07/2023 FINDINGS: CT HEAD, NECK, CHEST, ABDOMEN, PELVIS AND LOWER EXTREMITIES WITHOUT CONTRAST Head: There is no mass effect or midline shift. There is no acute hemorrhage. There is extensive bilateral mucoperiosteal thickening in the maxillary sinuses. There is a large right maxillary air-fluid level consistent with interval development of acute and chronic maxillary sinusitis. Neck: No soft tissue mass or lytic lesion identified. Chest: There is no lung mass or consolidation. Abdomen and pelvis: Noncontrast evaluation of the solid abdominal organs are without acute abnormality. No evidence of bowel obstruction. Osseous structures: No lytic lesions or acute osseous abnormality. Again identified is indentation of the left superior endplate of L4 which is stable. IMPRESSION: No evidence of lytic lesion. Reviewed, Interpreted and Dictated by Maxi Pate MD Transcribed by Francesca Cintron Authenticated and [facility]
== END 2024-10-07 23:59 | disposition home or self-care (01) ==
PROVIDERS: PCP Internal Medicine Adolescent Medicine; Visit Provider Internal Medicine Medical Oncology
DX: C90.00 Multiple myeloma not having achieved remission (principal)
CPT/HCPCS: 76497

== ENCOUNTER 2024-12-21 15:02 | Outpatient (CLI) | payer MEDICARE, SELFPAY ==
--- OUTSIDE RECORDS SUMMARY | 2024-09-18 17:30 | XMS_ITS ---
Author Organization [facility] Address [address] [place] [address] Care Team Providers Care Emergency Communications Officer Name Role Phone Van Paris Primary Care Provider Migration, Provider Unavailable Unavailable Allergies Allergen (clinical drug ingredient) Drug/Non Drug Allergy documented on EMR Reaction Allergy Type Onset Date Status BANANAS (uncoded) asthma exacerbation Allergy Active Augmentin rash Drug Allergy Active REASON FOR VISIT [facility] To [facility] Conversion Encounter Medications Medication SIG (Take, Route, Frequency, Duration) Notes Start Date End Date Status Lyrica 300 MG 1 cap(s) orally 2 times a day; Duration: 7 days Active Super B-Complex - 1 tab(s) orally once a day; Duration: 30 day(s) Active Co Q-10 100 MG 1 cap(s) orally once a day; Duration: 30 day(s) Active Aspirin 81 MG 1 tab(s) orally once a day; Duration: 30 days Active Percocet 7.5-325 MG 1 tab(s) orally every 6 hours prn Active Furosemide 20 MG 1 tab(s) orally once a day; Duration: 30 days 08/25/2024 Active Omeprazole 20 MG 1 cap(s) orally once a day; Duration: 90 days 08/04/2024 Active Famotidine 20 MG 1 tab(s) orally 2 times a day; Duration: 90 days 08/04/2024 Active Acyclovir 400 MG 1 tab(s) orally 3 times a day; Duration: 20 days bid Active Propranolol HCl 40 MG 1 tab(s) orally 2 times a day; Duration: 90 days Active Fluticasone Propionate 50 MCG/ACT 1 spray(s) in each nostril once a day; Duration: 30 day(s) Active Potassium Chloride ER 20 MEQ 1 tab(s) orally 2 times a day; Duration: 90 days Active Montelukast Sodium 10 MG 1 tab(s) orally once a day; Duration: 90 days Active Ventolin HFA 108 (90 Base) MCG/ACT 2 INH inhaled every 6 hours; Duration: 90 days 04/21/2024 Active amLODIPine Besylate 5 MG 1 tab(s) orally once a day; Duration: 90 days Active Breztri Aerosphere 160 MCG-4.8 MCG-9 MCG/INH 2 PUFF(S) INHALED 2 TIMES A DAY; Duration: 30 DAYS *Please review and pick [facility]. If intended option is not shown, discontinue and re-order from Quick Search* 12/18/2022 Active Ventolin HFA 108 (90 Base) MCG/ACT 2 puff(s) inhaled every 6 hours; Duration: 30 days 12/18/2022 Active Encounters Encounter Location Date Provider Diagnosis [facility] [address] [facility] [address] [facility] [address] [place] [address] 09/18/2024 Provider Migration Plan Of Treatment Next Appt Details Provider Name:Van Paris, 03/09/2025 08:45:00 AM, [address] [facility] [address] [facility], [address], [place], [address], Progress Notes * Luis Miguel GRIERDOB:[birth year] (54 yo M)Acc No.[id number]:09/18/2024 Patient: Luis Miguel THEODORE Provider: Adriano bedolla Migration :1970 A ge:53 Y S ex:Male Date:09/18/2024 Address:[facility] [address] [facility] Pcp:Van Paris Subjective: * Chief Complaints: * [facility] * Medical History: * Medications: T aking Percocet 7.5-325 MG Tablet 1 tab(s) orally every 6 hours prn , Taking Aspirin 81 MG Tablet Delayed Release 1 tab(s) orally once a day , Taking Co Q-10 100 MG Capsule 1 cap(s) orally once a day , Taking Super B-Complex - Tablet 1 tab(s) orally once a day , Taking Lyrica 300 MG Capsule 1 cap(s) orally 2 times a day , Taking Ventolin HFA 108 (90 Base) MCG/ACT Aerosol Solution 2 puff(s) inhaled every 6 hours , Taking Breztri Aerosphere 160 MCG-4.8 MCG-9 MCG/INH AEROSOL 2 PUFF(S) INHALED 2 TIMES A DAY , Notes to Pharmacist: *Please review and pick correct strength- formulation from [employer] options. If intended option is not shown, discontinue and re-order from Quick Search*, Taking Fluticasone Propionate 50 MCG/ACT Suspension 1 spray(s) in each nostril once a day , Taking amLODIPine Besylate 5 MG Tablet 1 tab(s) orally once a day , Taking Ventolin HFA 108 (90 Base) MCG/ACT Aerosol Solution 2 INH inhaled every 6 hours , Taking Montelukast Sodium 10 MG Tablet 1 tab(s) orally once a day , Taking Potassium Chloride ER 20 MEQ Tablet Extended Release 1 tab(s) orally 2 times a day , Taking Propranolol HCl 40 MG Tablet 1 tab(s) orally 2 times a day , Taking Acyclovir 400 MG Tablet 1 tab(s) orally 3 times a day , Notes to Pharmacist: bid, Taking Famotidine 20 MG Tablet 1 tab(s) orally 2 times a day , Taking Omeprazole 20 MG Capsule Delayed Release 1 cap(s) orally once a day , Taking Furosemide 20 MG Tablet 1 tab(s) orally once a day * Allergies: B ANANAS: asthma exacerbation, Augmentin: rash. Objective: * Vitals: Assessment: Plan: * Treatment: * * Electronic signature of Prov ider Migration on 12/21/2024 at 03:05 PM EDT Sign off status: Pending * Provider: Adriano bedolla Migration Date: 09/18/2024 Generated for Brody cyr/Elzbieta/Ayesha on: 12/21/2024 03:05 PM EDT
--- OUTSIDE RECORDS SUMMARY | 2024-10-26 14:40 | XMS_ITS | Encounter Summary ---
Author Organization [facility] Address [address] [place] [address] Care Team Providers Care Corporate Director Of Human Resources Name Role Phone Van Paris MD Primary Care Provider [phone] Reason for Visit * Consultation (Routine) - Closed Specialty Diagnoses / Procedures Referred By Contac t Referred To Contact Cardiology Diagnoses Shortness of breath Acquired dilation of right ventricle of heart Van Paris MD [address] [place] [address] Phone: tel: fax: Jevon Gates MD [address] [place] [address] Phone: tel: fax: Referral ID Status Reason Start Date Expiration Date V isits Requested Visits Authorized [id number] Closed Specialty Services Required 09/13/2024 03/15/2026 1 1 Encounter Details Date Type Department Care Team (Late st Contact Info) Description 10/26/2024 2:40 PM EDT Consult [facility] [address] [facility]. [address] [place] [address] Jevon Gates MD [address] [place] [address] Exertional dyspnea (Primary Dx); Right ventricular dilation Social History Tobacco Use Types Packs/Day Years Used Date Smoking Tobacco: Former Cigarettes Smokeless Tobacco: Current Chew Alcohol Use Standard Drinks/Week Comments Never 0 (1 standard drink = 0.6 oz pur e alcohol) PHQ-2 Answer Date Recorded Patient Health Questionnaire-2 Score 0 10/26/2024 Sex and Gender Information Value Date Recorded Sex Assigned at Not on file Legal Sex Male 8:50 PM EDT Gender Identity Not on file Sexual Orientation Not on file documented as of this encounter Last Filed Vital Signs Vital Sign Reading Time Taken Comments Blood Pressure 121/83 10/26/2024 2:36 PM EDT Pulse 64 10/26/2024 2:36 PM EDT Temperature - - Respiratory Rate 18 10/26/2024 2:36 PM EDT Oxygen Saturation 94% 10/26/2024 2:36 PM EDT RA Inhaled Oxygen Concentration - - Weight 122 kg (269 lb 10 oz) 10/26/2024 2:36 PM EDT Height 185.4 cm (6' 1 ) 10/26/2024 2:36 PM EDT Body Mass Index 35.57 10/26/2024 2:36 PM EDT documented in this encounter Functional Status * Over the past 2 weeks, how often have you been bothered by any of the following problems? Question Answer Date of Assessment Author Little interest or pleasure in doing things Not at all 10/26/2024 2:41 PM EDT Amaury Drake Feeling down, depressed, or hopeless Not at all 10/26/2024 2:41 PM EDT Amaury Drake Patient Health Questionnaire -2 Score 0 10/26/2024 2:41 PM EDT Amaury Drake * Calculated C-SSRS Risk Score (Lifetime/Recent) Answer Date of Assessment Author No Risk Indicated 10/26/2024 2:38 PM EDT Miranda Russell * Question Answer Date of Assessment Author 1. Wish to be (Past 1 Month) No 025 2:38 PM EDT Miranda Drake 2. Non-Specific Active Suici krishna Thoughts (Past 1 Month) No 10/26/2024 2:38 PM EDT Agnes Drake 6. Suicidal Behavior (Lifetime) No 2:38 PM EDT Miranda Drake documented as of this encounter Miscellaneous Notes * Progress Notes - Yolanda Whitman, PATIENT CARE ASSOCIATE - 10/26/2024 2:40 PM EDT [facility] 10/26/24 Van Paris MD History of Present Illness Dr. Jevon Gates and I had the pleasure of seeing Luis Miguel Wright, a 54 y.o. male who presents todayfor consultation regarding MACK at the request of Van Paris MD. PMH includes HTN, SEVEN, multiple myeloma s/p BMT. Mr. Wright began experiencing progressive dyspnea beginning last winter. His PCP ordered a series of tests, and echo showed mildly dilated RV. Patient has a lot of pain in his feet secondary to his multiple myeloma treatment which limits activity to some extent. He walked from the parking garage today without stopping. Patient denies exertional angina, palpitations, syncope or PND. He uses CPAP nightly. Of note, he was started on low dose ASA when he was undergoing treatment for his multiple myeloma and has continued it since that time. TTE 08/2024: EF 55%. RV mildly dilated and mildly hypokinetic Review of Systems 14 point review of systems is negative except as noted in HPI. Social History[1] Surgical History[2] Medical History[3] Family History[4] OBJECTIVE Vitals: 10/26/24 1436 BP: 121/83 Pulse: 64 Resp: 18 SpO2: 94% Physical Exam Physical Exam Vitals reviewed. Constitutional: General: He is not in acute distress. Appearance: He is obese. HENT: Head: Normocephalic. Neck: Vascular: No carotid bruit. Cardiovascular: Rate and Rhythm: Normal rate and regular rhythm. Pulses: Normal pulses. Heart sounds: S1 normal and S2 normal. No murmur heard. No gallop. Pulmonary: Effort: Pulmonary effort is normal. No respiratory distress. Breath sounds: Normal breath sounds. Musculoskeletal: Right lower leg: No edema. Left lower leg: No edema. Skin: General: Skin is warm and dry. Neurological: Mental Status: He is alert and oriented to person, place, and time. Psychiatric: Mood and Affect: Mood normal. Behavior: Behavior normal. Diagnostics Procedures No echocardiogram results found for the past 12 months Lab Review Lab Results Component Value Date/Time WBC 5.08 10/06/2024 0824 RBC 4.64 10/06/202424 HGB 15.0 10/06/202424 HCT 44.0 10/06/2024823 Lab Results Component Value Date/Time GLUCOSE 108 (H) 10/06/2024 0824 BUN 12 10/06/2024 0824 CREATININE 1.02 10/06/2024 0824 NA 142 10/06/2024 0824 K 4.4 10/06/2024 0824 CL 105 10/06/2024 0824 Lab Results Component Value Date/Time AST 23 10/06/2024 0824 ALT 31 10/06/2024 0824 ALKPHOS 111 10/06/2024 0824 No results found for: CHOL , LDL , LDLCALC , HDL , TRIG No results found for: HGBA1C Lab Results Component Value Date/Time TSH 2.75 07/24/2016 1308 ASSESSMENT AND PLAN Visit Diagnoses and Orders 1. Exertional dyspnea 2. Right ventricular dilation Discussion Summary Dr. Gates and I saw pt in clinic today. Dr. Gates reviewed the history and physical exam. Exertional dyspnea RV dilation - Progressive dyspnea for past several months - TTE 08/2024 showed normal LVEF, slightly reduced RVEF and mild RV dilation - CT chest 08/2024 overall unremarkable - ECG today: SR with sinus arrhythmia, rate 63 bpm - NYHA Class ll/lll - Dr. Gates reviewed echo findings and performed physical exam. He does not feel that either suggest pulmonary hypertension - Deconditioning could contribute; Dr. Gates recommends starting a daily walking program, starting with 5 minutes and increasing time gradually to a goal of 30 minutes/day - Will proceed with CPX to further evaluate symptoms and echo findings Obesity - Dr. Gates recommends working on weight loss to try to improve overall and CV health Follow up in 4-6 weeks with CPX same day. FREDDIE Holden MD, thank you for the consultation. Please do not hesitate to contact us with any questions. A total time of 45 minutes was spent by MD and DALIA addressing the current illness, reviewing records (prior imaging, lab work, etc), and formulating a plan. The patient is agreeable to the plan and all pertinent questions were answered. [1] Social History Tobacco Use Smoking status: Former Types: Cigarettes Smokeless tobacco: Current Types: Chew Vaping Use Vaping status: Never Used Substance Use Topics Alcohol use: Never Drug use: Never [2] Past Surgical History: Procedure Laterality Date BACK SURGERY [3] Past Medical History: Diagnosis Date Asthma Hypertension [4] Family History Problem Relation Name Age of Onset Asthma Mother Cancer Father documented in this encounter Plan of Treatment Upcoming Encounters Date Type Department Care Team (Late st Contact Info) Description 01/25/2025 3:40 PM EDT Office Visit [facility] [address] [facility]. [address] [place] [phone] Jevon Gates MD [address] [place] [address] 03/01/2025 10:30 AM EDT Appointment [facility] [address] [place] [address] 10/05/2025 11:00 AM EDT Clinical Support [facility]ology[facility] Cellular Therapy [facility] [address] [facility], [place] [phone] 10/05/2025 11:30 AM EDT Office Visit [facility]ology/B[facility] Cellular Therapy Program [address] [facility], [place] [phone] Hailey La APRN [address] [facility] [address] [place] [address] documented as of this encounter Procedures Procedure Name Priority Date/Time Associated Diagnosis Comments ECG ADULT Routine 10/26/2024 3:51 PM EDT Exertional dyspnea documented in this encounter Results * CPET ECG (11/10/2024 2:15 PM EDT) Anatomical Region Laterality Modality PFT 11/10/2024 12:5 1 PM EDT Narrative 11/10/2024 3:04 PM EDT Images from the original result were not included. [facility] The risks and benefits of progressive maximal cardiopulmonary exercise testing were explained to the patient. Informed, written consent was obtained prior to the start of the procedure. The patient was exercised to a symptom-limited maximum with a progressively increasing workload protocol. Continuous oxygen saturation, ECG and gas analysis were performed. Name: Luis Miguel Walker Study Date: 11/10/2024 Indication: Shortness of Breath Referring Provider: Abby Whitman APRN Age: 54 yo Weight: 119 kg Height: 182 cm Gender: Male Exercise Capacity: Cycle ergometry was performed for 10:11 minutes. The protocol consisted of a 15 W/minute ramp protocol up to a workload of 150 [place] (83% predicted). The test was stopped due to fatigue. Peak respiratory Exchange Ratio (RER) was 1.11, indicating a maximal effort study. The peak oxygen uptake was 2.1 L/min (17.9 ml/kg/min, 79% predicted), indicating normal exercise capacity. The patient remained asymptomatic throughout the test. Cardiovascular Performance: Heart rate was 66 bpm at rest. Heart rate at maximum exercise was 155 bpm (94% of maximal, age-predicted response) indicating a normal chronotropic response to exercise. Chronotropic index was calculated at 1.2 (normal 0.8 - 1.3). The observed reduction in heart rate of 72 bpm at 2 minutes into recovery indicates normal heart rate recovery. The resting blood pressure was 101/73 mmHg and increased to 133/43 mmHg at maximal exercise effort. / O2 Pulse at rest was 7.1 mL and increased appropriately (16.6 mL at anaerobic threshold, 133% of predicted) representing normal augmentation in stroke volume and peripheral oxygen extraction during peak exercise. Ventilatory threshold was in the expected range. Resting ECG showed normal sinus rhythm at 66 bpm. ECG limited by baseline artifact however there were no arrhythmias or ischemic changes at maximum exercise. Heart Rate [place]: 9 bpm (5%) Pulmonary Performance/Ventilatory Response: Mild reduction in FVC with normal FEV1 and normal FEV1/FVC ratio. Pre-exercise spirometry demonstrated FEV1 3.15 Liters (80% of predicted), FVC of 3.95 Liters (77.8% of predicted), FEV1/FVC ratio of 102.5 % predicted. Post-exercise spirometry demonstrated a 4.1% increase in FVC (3.95->4.11) and a 3.5% increase in FEV1 (3.15->3.26). The respiratory rate was 17 bpm at rest and increased to 33 bpm at maximal exercise. Tidal volume at rest was 0.822 L and increased to 2.116 L at maximal exercise. Pulse oximetry remained stable above 94% throughout the exercise. No provoked exercise desaturation. The maximum achieved minute ventilation was 70 L/min (64% of the maximum voluntary ventilation). Breathing reserve at peak exercise was 39 L/min (Breathing [place] Ratio: 36%) suggesting no pulmonary mechanical limitation to exercise. The normal VE/VCO2 slope of 26.68 suggests normal pulmonary perfusion and ventilation-perfusion matching occurred during exercise. Conclusion: This was a maximal effort study based on a peak RER > 1.1 and peak heart rate of > 85%. The patient demonstrated normal exercise capacity based on a peak VO2 of 17.9 mL/kg/min (79% predicted) and peak workload of 83% predicted. There was normal cardiovascular response based on a normal ventilatory threshold, normal augmentation in heart rate, blood pressure, O2 pulse, and overall VE/VCO2 slope. There was no pulmonary mechanical limitation to exercise. The ECG demonstrated no myocardial ischemia or arrhythmia. No prior CPET is available for direct comparison. Bassem Falcon DO [employer] Curerfinish cleaner Cardiovascular Medicine Director of Sports Cardiology [facility] Yolanda Whitman APRN PFT ORDERABLES Final Result * (ABNORMAL) Cardiopulmonary Exercise Test (11/10/2024 2:15 PM EDT) [id number] 4.11 3.91 - 6.25 L VYAIRE PFT [id number] 3.95 3.91 - 6.25 L VYAIRE PFT [id number] 3.26 3.01 - 4.81 L VYAIRE PFT FEV1 PRE 3.15 3.01 - 4.81 L VYAIRE PFT [id number] 79.25 66.35 - 87.75 % VYAIRE PFT FEV1/FVC PRE 79.76 66.35 - 87.75 % VYAIRE PFT FQI68-79%_POST 3.01 1.72 - 5.55 L/s VYAIRE PFT WYP11-73% PRE 3.03 1.72 - 5.55 L/s VYAIRE PFT [id number] 7.69 7.45 - 12.31 L/s VYAIRE PFT PEF PRE 7.62 7.45 - 12.31 L/s VYAIRE PFT [id number] 109.15(A) 133.54 - 133.54 L/min VYAIRE PFT Anatomical Region Laterality Modality PFT 11/10/2024 1:03 PM EDT Narrative 11/10/2024 3:04 PM EDT Images from the original result were not included. [facility] The risks and benefits of progressive maximal cardiopulmonary exercise testing were explained to the patient. Informed, written consent was obtained prior to the start of the procedure. The patient was exercised to a symptom-limited maximum with a progressively increasing workload protocol. Continuous oxygen saturation, ECG and gas analysis were performed. Name: Luis Miguel Walker Study Date: 11/10/2024 Indication: Shortness of Breath Referring Provider: Abby Whitman APRN Age: 54 yo Weight: 119 kg Height: 182 cm Gender: Male Exercise Capacity: Cycle ergometry was performed for 10:11 minutes. The protocol consisted of a 15 W/minute ramp protocol up to a workload of 150 [place] (83% predicted). The test was stopped due to fatigue. Peak respiratory Exchange Ratio (RER) was 1.11, indicating a maximal effort study. The peak oxygen uptake was 2.1 L/min (17.9 ml/kg/min, 79% predicted), indicating normal exercise capacity. The patient remained asymptomatic throughout the test. Cardiovascular Performance: Heart rate was 66 bpm at rest. Heart rate at maximum exercise was 155 bpm (94% of maximal, age-predicted response) indicating a normal chronotropic response to exercise. Chronotropic index was calculated at 1.2 (normal 0.8 - 1.3). The observed reduction in heart rate of 72 bpm at 2 minutes into recovery indicates normal heart rate recovery. The resting blood pressure was 101/73 mmHg and increased to 133/43 mmHg at maximal exercise effort. / O2 Pulse at rest was 7.1 mL and increased appropriately (16.6 mL at anaerobic threshold, 133% of predicted) representing normal augmentation in stroke volume and peripheral oxygen extraction during peak exercise. Ventilatory threshold was in the expected range. Resting ECG showed normal sinus rhythm at 66 bpm. ECG limited by baseline artifact however there were no arrhythmias or ischemic changes at maximum exercise. Heart Rate [place]: 9 bpm (5%) Pulmonary Performance/Ventilatory Response: Mild reduction in FVC with normal FEV1 and normal FEV1/FVC ratio. Pre-exercise spirometry demonstrated FEV1 3.15 Liters (80% of predicted), FVC of 3.95 Liters (77.8% of predicted), FEV1/FVC ratio of 102.5 % predicted. Post-exercise spirometry demonstrated a 4.1% increase in FVC (3.95->4.11) and a 3.5% increase in FEV1 (3.15->3.26). The respiratory rate was 17 bpm at rest and increased to 33 bpm at maximal exercise. Tidal volume at rest was 0.822 L and increased to 2.116 L at maximal exercise. Pulse oximetry remained stable above 94% throughout the exercise. No provoked exercise desaturation. The maximum achieved minute ventilation was 70 L/min (64% of the maximum voluntary ventilation). Breathing reserve at peak exercise was 39 L/min (Breathing [place] Ratio: 36%) suggesting no pulmonary mechanical limitation to exercise. The normal VE/VCO2 slope of 26.68 suggests normal pulmonary perfusion and ventilation-perfusion matching occurred during exercise. Conclusion: This was a maximal effort study based on a peak RER > 1.1 and peak heart rate of > 85%. The patient demonstrated normal exercise capacity based on a peak VO2 of 17.9 mL/kg/min (79% predicted) and peak workload of 83% predicted. There was normal cardiovascular response based on a normal ventilatory threshold, normal augmentation in heart rate, blood pressure, O2 pulse, and overall VE/VCO2 slope. There was no pulmonary mechanical limitation to exercise. The ECG demonstrated no myocardial ischemia or arrhythmia. No prior CPET is available for direct comparison. Bassem Falcon DO [employer] Curerfinish cleaner Cardiovascular Medicine Director of Sports Cardiology [facility] Yolanda Whitman PATIENT CARE ASSOCIATE PFT ORDERABLES Final Result * ECG Adult (Now - Performed in your clinic) (10/26/2024 3:51 PM EDT) EKG DIAGNOSIS CLASS Normal MUSE ECG Ventricular Rate 63 BPM MUSE ECG Atrial Rate 63 BPM MUSE ECG TN Interval 160 ms MUSE ECG QRSD Interval 90 ms MUSE ECG QT Interval 416 ms MUSE ECG QTC Interval 425 ms MUSE ECG P Moore 47 degrees MUSE ECG R Moore 58 degrees MUSE ECG T Wave Moore 80 degrees MUSE ECG Diagnosis Normal sinus rhythm with sinus arrhythmia MUSE ECG Diagnosis Normal ECG MUSE ECG Diagnosis MUSE ECG Diagnosis Confirmed by Maik Tejeda ([id number]) on 10/27/2024 8:18:21 AM MUSE ECG 10/26/2024 3:51 PM EDT 10/27/2024 8:18 AM EDT us Yolanda Whitman PATIENT CARE ASSOCIATE ECG ORDERABLES Final Result MUSE ECG documented in this encounter Visit Diagnoses Diagnosis Exertional dyspnea- Primary Other dyspnea and respiratory abnormality Right ventricular dilation Exertional dyspnea Other dyspnea and respiratory abnormality Right ventricular dilation documented in this encounter Additional Health Concerns Assessment Noted Time A fall risk assessment has been complete d for the patient 10/26/2024 2:41 PM EDT A Body Mass Index follow-up plan has been documented for the patient 10/26/2024 4:03 PM EDT documented as of this encounter Care Teams Corporate Director Of Human Resources Relationship Specialty Start Date End Date Van Paris MD [address] [place] [address] PCP - General 10/27/20 documented as of this encounter
--- OUTSIDE RECORDS SUMMARY | 2024-11-10 12:44 | XMS_ITS | Encounter Summary ---
Author Organization [facility] Address [address] [place] [address] Care Team Providers Care Tobacco Roller Name Role Phone Van Paris MD Primary Care Provider [phone] Encounter Details Date Type Department Care Team (Latest Contact Info) Description 11/10/2024 12:44 PM EDT - 11/10/2024 11:59 PM EDT Hospital Encounter [facility] Pulmonary Function Testing [address] [place] [address] Exertional dyspnea; Right ventricular dilation Discharge Disposition: Home or Self Care Social History Tobacco Use Types Packs/Day Years [...] on file documented as of this encounter Medications at Time of Discharge acyclovir (Zovirax) 400 MG tablet Take 1 tablet (400 mg) by mouth 2 (two) times a day. 08/27/2016 albuterol 108 (90 Base) MCG/ACT inhaler 2 puff(s) 09/03/2016 amLODIPine (Norvasc) 5 MG tablet 1 (one) time each day at the same time. 09/07/2020 aspirin 81 MG EC tablet 1 (one) time each day at the same time. B Complex Vitamins (vitamin-B complex) split tablet 1 (one) time each day at the same time. Breztri Aerosphere 160-9-4.8 MCG/ACT aerosol every 12 (twelve) hours. 12/18/2022 Coenzyme Q10 (Q-SORB) 100 MG capsule 1 (one) time each day at the same time. famotidine (Pepcid) 20 MG tablet Take 1 tablet (20 mg) by mouth 1 (one) time each day. 07/30/2021 fluticasone (Flonase) 50 MCG/ACT nasal spray USE 1 SPRAY(S) IN EACH NOSTRIL ONCE DAILY 07/31/2022 furosemide (Lasix) 20 MG tablet Take 1 tablet by mouth daily. 08/25/2024 montelukast (Singulair) 10 MG tablet 1 (one) time each day at the same time. omeprazole (PriLOSEC) [address] capsule Take 1 capsule (20 mg) by mouth 1 (one) time each day. 08/12/2021 oxyCODONE-acetami nophen (Percocet) 10-325 MG tablet TAKE 1 TABLET BY MOUTH EVERY 8 HOURS NEEDED FOR CANCER PAIN 05/04/2021 pantoprazole (Protonix) 40 MG EC tablet Take 1 tablet by mouth daily. 10/04/2024 potassium chloride CR (K-Tab) 20 MEQ ER tablet Take 1 tablet (20 mEq) by mouth 2 (two) times a day. potassium chloride CR (Klor-Con M20) 20 MEQ ER tablet Take 20 mEq by mouth. 07/26/2022 pregabalin (Lyrica) 300 MG capsule every 12 (twelve) hours. propranolol (Inderal) 40 MG tablet Take 1 tablet by mouth 2 (two) times a day. 09/02/2024 documented as of this encounter Plan of Treatment Upcoming Encounters Date Type Department Care Team (Late st Contact Info) Description 01/25/2025 3:40 PM EDT Office Visit [facility] [place] [address] [place] [phone] Jevon Gates MD [address] [place] [phone] 03/01/2025 10:30 AM EDT Appointment [facility] [address] [place] [address] 10/05/2025 11:00 AM EDT Clinical Support [facility] Hematology/BMT and Cellular Therapy Program [address] [facility] [place] [address] 10/05/2025 11:30 AM EDT Office Visit [facility] Hematology/BMT and Cellular Therapy Program [address] [place] [address] Hailey La, [employer]BI[employer]IP[employer] MECH[employer]IC [address] [facility] [address] [place] [phone] documented as of this encounter Procedures Procedure Name Priority Date/Time Associated Diagnosis Comments EXERCISE ECG Routine 11/10/2024 2:15 PM EDT Exertional dyspnea Right ventricular dilation HC CARDIOPULMONARY EXERCISE TESTING - COMPLEX STRESS TEST, PULMONARY Routine 11/10/2024 2:15 PM EDT Exertional dyspnea Right ventricular dilation documented in this encounter Results * CPET ECG (11/10/2024 2:15 PM EDT) Anatomical Region Laterality Modality PFT 11/10/2024 12:5 1 PM EDT Narrative 11/10/2024 3:04 PM EDT Images from the original result were not included. [facility] Cardiopulmonary Exercise Testing Laboratory The risks and [...] ischemic changes at maximum exercise. Heart Rate [place]: 9 bpm (5%) Pulmonary Performance/Ventilatory Response: Mild [...] at peak exercise was 39 L/min (Breathing [place] Ratio: 36%) suggesting no pulmonary mechanical limitation [...] available for direct comparison. Bassem Falcon DO Mangle Roll Operatorgravure press operator Cardiovascular Medicine Director of Sports Cardiology [facility] [place] Yolanda Casas J Carlos MOBILE HEAV[employer] EQUIPMENT MECHANIC PFT ORDERABLES Final Result * (ABNORMAL) Cardiopulmonary Exercise Test (11/10/2024 2:15 PM EDT) [id number] 4.11 3.91 - 6.25 L VYAIRE PFT [id number] 3.95 3.91 - 6.25 L VYAIRE PFT [id number] 3.26 3.01 - 4.81 L VYAIRE PFT FEV1 PRE 3.15 3.01 - 4.81 L VYAIRE PFT [id number] 79.25 66.35 - 87.75 % VYAIRE PFT FEV1/FVC PRE 79.76 66.35 - 87.75 % VYAIRE PFT STU79-14%_POST 3.01 1.72 - 5.55 L/s VYAIRE PFT IUI84-77% PRE 3.03 1.72 - 5.55 L/s VYAIRE PFT [id number] 7.69 7.45 - 12.31 L/s VYAIRE PFT PEF PRE 7.62 7.45 - 12.31 L/s VYAIRE PFT [id number] 109.15(A) 133.54 - 133.54 L/min VYAIRE PFT Anatomical Region Laterality Modality PFT 11/10/2024 1:03 PM EDT Narrative 11/10/2024 3:04 PM EDT Images from the original result were not included. [facility] Cardiopulmonary Exercise Testing Laboratory The risks and [...] ischemic changes at maximum exercise. Heart Rate [place]: 9 bpm (5%) Pulmonary Performance/Ventilatory Response: Mild [...] at peak exercise was 39 L/min (Breathing [place] Ratio: 36%) suggesting no pulmonary mechanical limitation [...] available for direct comparison. Bassem Falcon DO Mangle Roll Operatorgravure press operator Cardiovascular Medicine Director of Sports Cardiology [facility] [place] Yolanda Whitman APRN PFT ORDERABLES Final Result documented in this encounter Visit Diagnoses Diagnosis Exertional dyspnea Other dyspnea and respiratory abnormality Right ventricular dilation documented in this encounter Additional Health Concerns Assessment Noted Time A fall risk assessment has been complete d for the patient 10/26/2024 2:41 PM EDT A Body Mass Index follow-up plan has been documented for the patient 10/26/2024 4:03 PM EDT documented as of this encounter Care Teams Tobacco Roller Relationship Specialty Start Date End Date Van Paris MD [address] [place] [address] [place] [address] PCP - General 10/27/20 documented as of this encounter
--- OUTSIDE RECORDS SUMMARY | 2024-11-30 09:20 | XMS_ITS | Encounter Summary ---
Author Organization [facility] Address [address] [place] [address] Care Team Providers Care Frog Catcher Name Role Phone Van Paris MD Primary Care Provider [phone] Reason for Referral * Imaging (Routine) - Pending Review Specialty Diagnoses / Procedures Referred By Nino kang Referred To Contact Radiology Diagnoses Exertional dyspnea Right ventricular dilation Procedures MR Cardiac Morphology and Function W Velocity Flow Mapping W and WO Contrast Jevon Gates MD [address] [place] [address] Phone: tel: fax: Referral ID Status Reason Start Date Expiration Date V isits Requested Visits Authorized [id number] Pending Review 11/30/2024 06/01/2026 1 1 Encounter Details Date Type Department Care Team (Late st Contact Info) Description 11/30/2024 9:20 AM EDT Office Visit [facility] [place] [address] [facility] [place] [address] Jevon Gates MD [address] [place] [address] Exertional dyspnea (Primary Dx); Right ventricular dilation Social History Tobacco Use Types Packs/Day Years Used Date Smoking Tobacco: Former Cigarettes Smokeless Tobacco: Current Chew Alcohol Use Standard Drinks/Week Comments Never 0 (1 standard drink = 0.6 oz pur e alcohol) PHQ-2 Answer Date Recorded Patient Health Questionnaire-2 Score 0 11/30/2024 AUDIT-C Answer Date Recorded Q1: How often do you have a drink containing alcohol? Never 11/30/2024 Q2: How many drinks containi ng alcohol do you have on a typical day when you are drinking? Patient does not drink Q3: How often do you have si x or more drinks on one occasion? Never 11/30/2024 Sex and Gender Information Value Date Recorded Sex Assigned at Not on file Legal Sex Male 8:50 PM EDT Gender Identity Not on file Sexual Orientation Not on file documented as of this encounter Last Filed Vital Signs Vital Sign Reading Time Taken Comments Blood Pressure 122/82 11/30/2024 9:45 AM EDT Pulse 59 11/30/2024 9:45 AM EDT Temperature - - Respiratory Rate - - Oxygen Saturation 96% 11/30/2024 9:45 AM EDT Inhaled Oxygen Concentration - - Weight 120 kg (264 lb 1.8 oz) 11/30/2024 9:45 AM EDT Height 185.4 cm (6' 1 ) 11/30/2024 9:45 AM EDT Body Mass Index 34.85 11/30/2024 9:45 AM EDT documented in this encounter Functional Status * AUDIT-C Score Answer Date of Assessment Author 0 11/30/2024 9:46 AM EDT Meagan Atkins * Question Answer Date of Assessment Author Q1: How often do you have a drink containing alcohol? Never 11/30/2024 9:46 AM EDT Meagan Atkins Q2: How many drinks containing alcohol do you have on a typical day when you are drinking? Patient does not drink 11/30/2024 9:46 AM EDT Meagan Atkins Q3: How often do you have six or more drinks on one occasion? Never 11/30/2024 9:46 AM EDT Meagan Atkins * Over the past 2 weeks, how often have you been bothered by any of the following problems? Question Answer Date of Assessment Author Little interest or pleasure in doing things Not at all 11/30/2024 9:48 AM JOT Meagan Atkins Feeling down, depressed, or hopeless Not at all 11/30/2024 9:48 AM JOT Meagan Atkins Patient Health Questionnaire -2 Score 0 11/30/2024 9:48 AM EDT Meagan Atkins * Calculated C-SSRS Risk Score (Lifetime/Recent) Answer Date of Assessment Author No Risk Indicated 11/30/2024 9:48 AM EDT Meagan Hebert * Question Answer Date of Assessment Author 1. Wish to be (Past 1 Month) No 025 9:48 AM EDT Meagan Atkins 2. Non-Specific Active Suici krishna Thoughts (Past 1 Month) No 11/30/2024 9:48 AM EDT Rhianna Atkins 6. Suicidal Behavior (Lifetime) No 9:48 AM EDT Meagan Atkins documented as of this encounter Miscellaneous Notes * Progress Notes - Yudith Trimble MD - 11/30/2024 9:20 AM EDT [facility] [place] 11/30/[address] History of [address] Jevon Gates and I had the pleasure of seeing Luis Miguel Wright, a 54 y.o. male, in the [facility]. He presents today for follow up. PMH includes HTN, SEVEN, multiple myeloma s/p BMT. Cardiac history: Mr. Wright began experiencing progressive dyspnea beginning last winter. His PCP ordered a series of tests, and echo showed mildly dilated RV. Referred to Dr. Gates for evaluation of RV dilation. CPX obtained and considered normal. Today, patient is overall doing about the same. MACK is slightly improved, now only experiencing with significant exertion. He has mentioned intermittent episodes of lightheadedness occurring mainly with position changes. Continuing to take Lasix 20 mg daily. Swelling in lower extremities unchanged.Completed CPX which was considered normal, CMR ordered but not completed. Echo 08/2024: EF 55%. RV mildly dilated and mildly hypokinetic CPX stess 10/2024 considered normal. Review of Systems 14 point review of systems is negative except as noted in HPI. Social History[1] Surgical History[2] Past Medical History[3] Family History[4] Current Medications[5] OBJECTIVE Visit Vitals BP 122/82 Pulse 59 Ht 1.854 m (6' 1 ) Wt 120 kg (264 lb 1.8 oz) SpO2 96% BMI 34.85 kg/m?? Physical Exam Physical Exam Constitutional: General: He is not in acute distress. Appearance: He is obese. He is not ill-appearing. HENT: Head: Normocephalic. Mouth/Throat: Mouth: Mucous membranes are moist. Pharynx: Oropharynx is clear. Eyes: General: No scleral icterus. Conjunctiva/sclera: Conjunctivae normal. Cardiovascular: Rate and Rhythm: Normal rate and regular rhythm. Pulses: Normal pulses. Heart sounds: Normal heart sounds. No murmur heard. Pulmonary: Effort: Pulmonary effort is normal. No respiratory distress. Breath sounds: Normal breath sounds. No wheezing. Abdominal: Palpations: Abdomen is soft. Musculoskeletal: Right lower leg: Edema (2+) present. Left lower leg: Edema (2+) present. Skin: General: Skin is warm and dry. Capillary Refill: Capillary refill takes less than 2 seconds. Coloration: Skin is not jaundiced or pale. Neurological: General: No focal deficit present. Mental Status: He is alert and oriented to person, place, and time. Psychiatric: Mood and Affect: Mood normal. Behavior: Behavior normal. Lab Review Lab Results Component Value Date/Time WBC 5.08 10/06/2024 0824 RBC 4.64 10/06/2024 0824 HGB 15.0 10/06/2024 0824 HCT 44.0 10/06/2024 0824 Lab Results Component Value Date/Time GLUCOSE 108 [...] physical exam. Exertional dyspnea RV dilation - stable from prior visit - Progressive dyspnea for past several months - TTE 08/2024 showed normal LVEF, slightly reduced RVEF and mild RV dilation per report (no imaging available for review) - CT chest 08/2024 overall unremarkable - ECG 10/26/24: SR with sinus arrhythmia, rate 63 bpm - NYHA Class ll/lll - Dr. Gates reviewed echo, CPX and performed physical exam. He does not feel that current workup suggests pulmonary hypertension - Continue a daily walking program, with a goal of 30 minutes/day - Will obtain CMR at [facility] for further assessment of RV dilation - Plan to obtain TTE imaging from 08/2024 completed at [facility] Lightheadedness Lower extremity swelling - lower extremity swelling beginning 3-4 months ago, was started on Lasix 20 mg for symptom management - intermittent lightheadedness with position changes - Dr. Gates examined patient; does not think symptoms of lightheadedness or BLE swelling secondary to cardiac pathology rather venous insufficiency - Recommend patient stop Lasix 20 mg as this is likely contributing to lightheadedness - Counseled on low sodium diet Obesity - Dr. Gates recommends working on weight loss to try to improve overall and CV health Follow up in 6 weeks w/ CMR prior to appt Yudith Trimble MD PGY-2, Internal Medicine A total time of 45 minutes was spent by MD and Resident addressing the current illness, reviewing records (prior [...] Age of Onset Asthma Mother Cancer Father [5] Current Outpatient Medications: acyclovir (Zovirax) 400 MG tablet, Take 1 tablet (400 mg) by mouth 2 (two) times a day., Disp: , Rfl: albuterol 108 (90 Base) MCG/ACT inhaler, 2 puff(s), Disp: , Rfl: amLODIPine (Norvasc) 5 MG tablet, 1 (one) time each day at the same time., Disp: , Rfl: aspirin 81 MG EC tablet, 1 (one) time each day at the same time., Disp: , Rfl: B Complex Vitamins (vitamin-B complex) split tablet, 1 (one) time each day at the same time., Disp:, Rfl: Breztri Aerosphere 160-9-4.8 MCG/ACT aerosol, every 12 (twelve) hours., Disp: , Rfl: Coenzyme Q10 (Q-SORB) 100 MG capsule, 1 (one) time each day at the same time., Disp: , Rfl: famotidine (Pepcid) 20 MG tablet, Take 1 tablet (20 mg) by mouth 1 (one) time each day., Disp: , Rfl: fluticasone (Flonase) 50 MCG/ACT nasal spray, USE 1 SPRAY(S) IN EACH NOSTRIL ONCE DAILY, Disp: , Rfl: furosemide (Lasix) 20 MG tablet, Take 1 tablet by mouth daily., Disp: , Rfl: montelukast (Singulair) 10 MG tablet, 1 (one) time each day at the same time., Disp: , Rfl: omeprazole (PriLOSEC) [address] capsule, Take 1 capsule (20 mg) by mouth 1 (one) time each day., Disp: , Rfl: oxyCODONE-acetaminophen (Percocet) 10-325 MG tablet, TAKE 1 TABLET BY MOUTH EVERY 8 HOURS NEEDEDFOR CANCER PAIN, Disp: , Rfl: pantoprazole (Protonix) 40 MG EC tablet, Take 1 tablet by mouth daily., Disp: , Rfl: potassium chloride CR (K-Tab) 20 MEQ ER tablet, Take 1 tablet (20 mEq) by mouth 2 (two) times a day., Disp: , Rfl: pregabalin (Lyrica) 300 MG capsule, every 12 (twelve) hours., Disp: , Rfl: propranolol (Inderal) 40 MG tablet, Take 1 tablet by mouth 2 (two) times a day., Disp: , Rfl: potassium chloride CR (Klor-Con M20) 20 MEQ ER tablet, Take 20 mEq by mouth. (Patient not taking: Reported on 11/30/2024), Disp: , Rfl: Cosigned by Jevon Gates MD at 11/30/2024 11:37 AM EDT Associated attestation - Jevon Gates MD - 11/30/2024 11:37 AM EDT I saw and evaluated the patient with the resident/fellow. I discussed the case with the resident/fellow and agree with the findings and plan as documented. Cardiac exam normal. 12-lead ECG today, personally reviewed, a normal ECG, although increased resting heart rte 95 bpm, raising possibility of diabetic autonomic neuropathy. Recent episode in rastafari sounds like reflex, vasovagal symptomatology. Trial metoprolol tartrate 12.5 mg BID, return clinic 6 weeks. Neuro referral for memory disorder. documented in this encounter Plan of Treatment Upcoming Encounters Date Type Department Care Team (Late st Contact Info) Description 01/25/2025 3:40 PM EDT Office Visit [facility] [place] [address] [facility] [place] [phone] Jevon Gates MD [address] [place] [address] 03/01/2025 10:30 AM EDT Appointment [facility] Radiology [address] [place] [phone] 10/05/2025 11:00 AM EDT Clinical Support [facility] Hematology/BMT and Cellular Therapy Program [address] [facility], [place] [phone] 10/05/2025 11:30 AM EDT Office Visit [facility] Hematology/BMT and Cellular Therapy Program [address] [facility], [place] [address] Haliey La, FREDDIE [address] [facility] [address] [place] [phone] Scheduled Orders Name Type Priority Associated Diagnoses Orde r Schedule MR Cardiac Morphology and Function W Velocity Flow Mapping W and WO Contrast Imaging Routine Exertional dyspnea Right ventricular dilation Expected: 11/30/2024 (Approximate), Expires: 06/03/2026 documented as of this encounter Visit Diagnoses Diagnosis Exertional dyspnea- Primary Other dyspnea and respiratory abnormality Right ventricular dilation documented in this encounter Additional Health Concerns Assessment Noted Time A fall risk assessment has been complete d for the patient 11/30/2024 9:49 AM EDT A Body Mass Index follow-up plan has been documented for the patient 11/30/2024 11:38 AM EDT documented as of this encounter Care Teams Frog Catcher Relationship Specialty Start Date End Date Van Paris MD [address] [place] [address] [place] [address] PCP - General 10/27/20 documented as of this encounter
--- OUTSIDE RECORDS SUMMARY | 2024-12-01 06:30 | XMS_ITS ---
Author Organization [facility] Address [address] [place], [place] [address] Care Team Providers Care Host/Hostess Ground Name Role Phone Van Paris Primary Care Provider [phone] Allergies Allergen (clinical drug ingredient) Drug/Non Drug Allergy documented on EMR Reaction Allergy Type Onset Date Status BANANAS (uncoded) asthma exacerbation Allergy Active amoxicillin / clavulanate Augmentin rash Drug Allergy Active REASON FOR VISIT 2 month follow up Medications Medication SIG (Take, Route, Frequency, Duration) Notes Start Date End Date Status amLODIPine Besylate 5 MG Take 1 tablet by mouth once daily; Duration: 90 Active Propranolol HCl 40 MG 1 tab(s) orally 2 times a day; Duration: 90 days Active Acyclovir 400 MG 1 tab(s) orally 3 times a day; Duration: 20 days bid Active Famotidine 20 MG 1 tab(s) orally 2 times a day; Duration: 90 days 08/04/2024 Active Omeprazole 20 MG 1 cap(s) orally once a day; Duration: 90 days 08/04/2024 Active Breztri Aerosphere 160 MCG-4.8 MCG-9 MCG/INH 2 PUFF(S) INHALED 2 TIMES A DAY; Duration: 30 DAYS *Please review and pick correct strength-formulatio n from Medispan options. If intended option is not shown, discontinue and re-order from Quick Search* 12/18/2022 Active Fluticasone Propionate 50 MCG/ACT 1 spray(s) in each nostril once a day; Duration: 30 day(s) Active Ventolin HFA 108 (90 Base) MCG/ACT 2 INH inhaled every 6 hours; Duration: 90 days 04/21/2024 Active Montelukast Sodium 10 MG 1 tab(s) orally once a day; Duration: 90 days Active Potassium Chloride ER 20 MEQ 1 tab(s) orally 2 times a day; Duration: 90 days Active Lyrica 300 MG 1 cap(s) orally 2 times a day; Duration: 7 days Active Ventolin HFA 108 (90 Base) MCG/ACT 2 puff(s) inhaled every 6 hours; Duration: 30 days 12/18/2022 Active Aspirin 81 MG 1 tab(s) orally once a day; Duration: 30 days Active Co Q-10 100 MG 1 cap(s) orally once a day; Duration: 30 day(s) Active Super B-Complex - 1 tab(s) orally once a day; Duration: 30 day(s) Active Furosemide 20 MG 1 tab(s) orally once a day; Duration: 30 days Active Percocet 7.5-325 MG 1 tab(s) orally every 6 hours prn Active Vital Signs Temperature 97.7 degrees Fahrenheit 12/02/19 25 Blood pressure systolic 102 mm Hg 12/02/19 25 Blood pressure diastolic 76 mm Hg 025 Heart Rate 72 /min 12/01/2024 Height 6 ft in 12/01/2024 Weight 266 lbs 12/01/2024 BMI 36.07 kg/m2 12/01/2024 Encounters Encounter Location Date Provider Diagnosis [facility] [address] [facility] [address] [place] [address] 12/01/2024 Van Paris 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 meds. No concerns on my part about diversion or misuse. Labs and Charlie reports reviewed and are appropriate. 12/01/2024 Mild intermittent asthma without complication (ICD-10 - J45.20) On inhaler, PFT is normal. No changes in plan 12/01/2024 Obstructive sleep apnea (ICD-10 - G47.33) Doing well with CPAP, no changes 12/01/2024 GERD without esophagitis (ICD-10 - K21.9) Stable on current therapy, eating well. 12/01/2024 Dyspnea on effort (ICD-10 - R06.09) cardiology evaluation continues. Will follow. Follow-up after cardiac MRI Plan Of Treatment Treatment Notes Assessment Notes Drug-induced polyneuropathy Patient has been compliant with our office and [place] regulations r.e. meds. No concerns on my part about diversion or misuse. Labs and Charlie reports reviewed and are appropriate. Mild intermittent asthma wit hout complication On inhaler, PFT is normal. No changes in plan Obstructive sleep apnea Doing well with CPAP, no changes GERD without esophagitis Stable on curre nt therapy, eating well. Dyspnea on effort cardiology evaluation continues. Will follow. Follow-up after cardiac MRI Next Appt Details Follow Up: 3 Months, Reason: Provider Name:Van Paris, 03/09/2025 08:45:00 AM, [address], [address], [place], [address], Progress Notes * Luis Miguel GRIERDOB:[birth year] (54 yo M)Acc No.[id number]:12/01/2024 Progress Notes Patient: Luis Miguel THEODORE Provider: Vitaliy Paris MD :1970 A ge:54 Y S ex:Male Date:12/01/2024 Address:[facility] Subjective: * Chief Complaints: * 1 . 2 month follow up. * HPI: g en: Here to follow-up his chronic medical problems. Overall is doing well, takes pain medicine very rarely. Still struggling with some neuropathy from the side effects from his lymphoma treatment. Is following with [facility] cardiology for his dyspnea, cardiac MRI is scheduled, has done well with stress test and echocardiogram. * Medical History: H ypertension, Asthma, Tremors/anxiety, chest pain with negative Cardiolite stress test in September 2012, 78% ejection fraction, Multiple myeloma s/p BMT, Low-dose CT scan February 2023 wnl, Colonoscopy 2019 normal. * Surgical History: D enies Past Surgical History. * Hospitalization/Major Diagno stic Procedure: D enies Past Hospitalization. * Family History: F ather: . M other: alive. P aternal Grand Father: . P aternal Grand Mother: . M aternal Grand Father: . M aternal Grand Mother: . Paternal uncle: alive. P aternal aunt: alive. M aternal uncle: alive, one . M aternal aunt: alive. S iblings: alive. C hildren: alive. 1 sister(s) - healthy. 1 son(s) , 1 daughter(s) - healthy. . * Social History: S moking A re you a:: former smoker , How long has it been since you last smoked?: 5-10 years. R ecreational drug use: no. Exercise: no. Home smoke detector use: yes. Caffeine: yes, frequency: rarely. Living Will: No. Alcohol: no. Sexually active: no. Travel outside [place]: no. Occupation: gomes. * Medications: T aking Percocet 7.5-325 MG [...] review and pick correct strength- formulation from Medispan options. If intended option is not shown, discontinue and re-order from Quick Search*, Taking Fluticasone Propionate 50 MCG/ACT Suspension 1 spray(s) in each nostril once a day , Taking Ventolin HFA [...] cap(s) orally once a day , Taking amLODIPine Besylate 5 MG Tablet Take 1 tablet by mouth once daily , Taking Furosemide 20 MG Tablet 1 tab(s) orally once a day , Medication List reviewed and reconciled with the patient * Allergies: B ANANAS: asthma exacerbation, Augmentin: rash. Objective: * Vitals: N urse: be, Pain: 3, Temp: 97.7, RR: 16, HR: 72, BP: 102/76, Ht: 6 ft, Wt: 266, BMI:36.07. * Examination: G eneral Examination: General P leasant and Cooperative, NAD on RA,. Chest: n ormal shape and expansion. Heart: R egular Rate and Rhythm, no murmur, rubs or gallops. HEENT: p harynx and tonsils normal, TM's normal. Lungs: L CTAB, No wheezes, crackles or rhonchi, Good air movement,. Extremities: n ormal ROM,, no clubbing, no edema,, no foot lesions,. Neck s upple, no lymphadenopathy. Assessment: * Assessment: 1. D rug-induced polyneuropathy - G62.0 (Primary) 2 . M ild intermittent asthma without complication - J45.20 3 . O bstructive sleep apnea - G47.33 ? 4 . G ERD without esophagitis - K21.9 5 . D yspnea on effort - R06.09 Plan: * Treatment: 2. M ild intermittent asthma without complication Notes: On inhaler, PFT is normal. No changes in plan 3. O bstructive sleep apnea Notes: Doing well with CPAP, no changes 4. G ERD without esophagitis Notes: Stable on current therapy, eating well. 5. D yspnea on effort Notes: cardiology evaluation continues. Will follow. Follow-up after cardiac MRI * Follow Up: 3 Months * * Sign off status: Completed true * Provider: Vitaliy Paris MD Date: 12/01/2024 Generated for Brody cyr/Elzbieta/eTransmitting on: 0 12/21/2024 03:06 PM EDT History and Physical Notes * Examination Category Sub-Category Detail Notes Category Not es General Examination HEENT: pharynx and tonsils normal, TM's normal Neck supple, no lymphaden opathy Heart: Regular Rate and Rhy thm, no murmur, rubs or gallops Lungs: LCTAB, No wheezes, c rackles or rhonchi, Good air movement, Extremities: normal ROM,, no club tutu, no edema,, no foot lesions, Chest: normal shape and exp ansion General Pleasant and Coopera tive, NAD on RA,
--- OUTSIDE RECORDS SUMMARY | 2024-12-21 15:05 | XMS_ITS | Clinical Summary ---
Author Organization [facility] [place] [address] Care Team Providers Care Bellman Name Role Phone Unavailable Primary Care Provider Unavailabl e Social History Tobacco Use Types Packs/Day Years Used Date Smoking Tobacco: Never Assessed Sex and Gender Information Value Date Recorded Sex Assigned at Not on file Legal Sex Male 5:36 AM EDT Gender Identity Not on file Sexual Orientation Not on file Plan of Treatment Health Maintenance Due Date Last Done Comments Annual Wellness Exam 10/20/1971 DTaP/TDaP/Td (1 - Tdap) 10/20/1987 Hepatitis B Vaccine (1 of 3 - 19+ 3-dose series) 10/20/1987 Cologuard 2013 Colon Cancer Screening 2013 Colonoscopy 2013 FIT 2013 Sigmoidoscopy 2013 Virtual Colonography 2013 Pneumococcal Vaccine 50+ (1 of 1 - PCV) 2018 Zoster (1 of 2) 2018 COVID-19 Vaccine ( - 2023-2 5 season) 2024 Influenza Vaccine (#1) 2025 Meningococcal B Vaccine Aged Out No l onger eligible based on patient's age to complete this topic
--- OUTSIDE RECORDS SUMMARY | 2024-12-21 15:05 | XMS_ITS | Encounter Summary ---
Author Organization [facility] Address [address] [place] [address] Care Team Providers Care Sports Photographer Name Role Phone Van Paris MD Primary Care Provider [phone] Encounter Details Date Type Department Care Team (Late Contact Info) Description 08/31/2024 Orders Only External Location [address] [place] [phone] Van Paris MD [address] [place] [address] Social History Tobacco Use Types Packs/Day Years Used Date Smoking Tobacco: Former Cigarettes Smokeless Tobacco: Current Chew Sex and Gender Information Value Date Recorded Sex Assigned at Not on file Legal Sex Male 8:50 PM EDT Gender Identity Not on file Sexual Orientation Not on file documented as of this encounter Plan of Treatment Upcoming Encounters Date Type Department Care Team (Late Contact Info) Description 01/25/2025 3:40 PM EDT Office Visit [facility] [place] [address] [facility]. [address] [place] [address] Jevon Gates MD [address] [place] [phone] 03/01/2025 10:30 AM EDT Appointment [facility] [address] [place] [address] 10/05/2025 11:00 AM EDT Clinical Support [facility] Hematology/BMT and Cellular Therapy Program [address] [facility] [place] [address] 10/05/2025 11:30 AM EDT Office Visit [facility]ology/BMT and Cellular Therapy Program [address] [facility], [address] [place] [address] Hailey La, BETTING AGENCY MANAGER [address] [facility] [address] [place] [address] documented as of this encounter Procedures Procedure Name Priority Date/Time Associated Diagnosis Comments US OUTSIDE IMAGES 08/31/2024 9:20 AM EDT documented in this encounter Results * US OUTSIDE IMAGES (08/31/2024 9:20 AM EDT) Anatomical Region Laterality Modality Ultrasound 08/31/2024 9:20 AM EDT us Van Paris MD IMG US PROCEDURES Final Resu lt documented in this encounter Visit Diagnoses Not on filedocumented in this encounter Additional Health Concerns Assessment Noted Time A fall risk assessment has been complete d for the patient 09/11/2023 2:33 PM EDT documented as of this encounter Care Teams Sports Photographer Relationship Specialty Start Date End Date Van Paris MD [address] [place] [address] PCP - General 10/27/20 documented as of this encounter
--- OUTSIDE RECORDS SUMMARY | 2024-12-21 15:05 | XMS_ITS | Encounter Summary ---
Author Organization [facility] Address [address] [place] [address] Care Team Providers Care Staff Internist Office Based Only Name Role Phone Van Paris MD Primary Care Provider [phone] Encounter Details Date Type Department Care Team (Late Contact Info) Description 09/01/2024 Orders Only External Location [address] [place] [phone] Provider, External Social History Tobacco Use Types Packs/Day Years [...] Description 01/25/2025 3:40 PM EDT Office Visit [facility] [place] [address] [facility]. [address] [place] [address] Jevon Gates MD [address] [place] [address] 03/01/2025 10:30 AM EDT Appointment [facility] [address] [place] [address] 10/05/2025 11:00 AM EDT Clinical Support [facility] Hematology/BMT and Cellular Therapy Program [address] [place] [address] 10/05/2025 11:30 AM EDT Office Visit [facility]/BMT and Cellular Therapy Program [address] [place] [address] Hailey La, SIGNAL MAINTENANCE TECHNICIAN 800 [facility] [address] [place] [address] documented as of this encounter Procedures Procedure Name Priority Date/Time Associated Diagnosis Comments XR OUTSIDE IMAGES 09/01/2024 11:11 AM EDT documented in this encounter Results * XR OUTSIDE IMAGES (09/01/2024 11:11 AM EDT) Anatomical Region Laterality Modality Radiographic Marysol ging 09/01/2024 11:1 1 AM EDT us External Provider IMG XR PROCEDURES Final Result documented in this encounter Visit Diagnoses Not on filedocumented in this encounter Additional Health Concerns Assessment Noted Time A fall risk assessment has been complete d for the patient 09/11/2023 2:33 PM EDT documented as of this encounter Care Teams Staff Internist Office Based Only Relationship Specialty Start Date End Date Van Paris MD [address] [place] [address] PCP - General 10/27/20 documented as of this encounter
--- OUTSIDE RECORDS SUMMARY | 2024-12-21 15:05 | XMS_ITS | Encounter Summary ---
Author Organization [facility] Address [address] [place] [address] Care Team Providers Care File Clerk Name Role Phone Van Paris MD Primary Care Provider [phone] Encounter Details Date Type Department Care Team (Latest Contact Info) Description 10/26/2024 Travel Social History Tobacco Use Types Packs/Day Years [...] on file documented as of this encounter Functional Status * Over the [...] Author No Risk Indicated 10/26/2024 2:38 PM JOT Miranda Russell * Question Answer Date of Assessment Author 1. Wish to be (Past 1 Month) No 025 2:38 PM EDT Miranda rDake 2. Non-Specific Active Suici krishna Thoughts (Past 1 Month) No 10/26/2024 2:38 PM EDT Agnes Drake 6. Suicidal Behavior (Lifetime) No 2:38 PM EDT Miranda Drake documented as of this encounter Plan of Treatment Upcoming Encounters Date Type Department Care Team (Late st Contact Info) Description 01/25/2025 3:40 PM EDT Office Visit [facility] [place] [address] [facility] [place] [address] Jevon Gates MD [address] [place] [address] 03/01/2025 10:30 AM EDT Appointment [facility] [address] [place] [address] 10/05/2025 11:00 AM EDT Clinical Support [facility]ology/BMT and Cellular Therapy Program [address] [address] 10/05/2025 11:30 AM EDT Office Visit [facility]/BMT and Cellular Therapy Program [address] [phone] Hailey La, FOXING CUTTING MACHINE OPERATOR 800 [facility] [address] [place] [address] documented as of this encounter Visit Diagnoses Not on filedocumented in this encounter Additional Health Concerns Assessment Noted Time A fall risk assessment has been complete d for the patient 10/26/2024 2:41 PM EDT A Body Mass Index follow-up plan has been documented for the patient 10/26/2024 4:03 PM EDT documented as of this encounter Care Teams File Clerk Relationship Specialty Start Date End Date Van Paris MD [address] [place] [address] PCP - General 10/27/20 documented as of this encounter
--- OUTSIDE RECORDS SUMMARY | 2024-12-21 15:05 | XMS_ITS | Clinical Summary ---
Author Organization [facility] ([place], [place], [place], [place]) Address [address] [place] [address] Care Team Providers Care Oil Well Cable Tool Driller Name Role Phone Van Paris MD Primary Care Provider [phone] Allergies Active Allergy Reactions Criticality Noted Date Comments Banana 03/30/2024 Seasonal Allergies 03/30/2024 Medications acyclovir (ZOVIRAX) 400 MG tablet Take 1 tablet (400 mg total) by mouth 2 (two) times daily. Active albuterol (ProAir HFA) 90 mcg/actuation inhaler 2 puff(s) inhaled 4 times a day PRN wheezing or SOA for 25 Active amLODIPine (NORVASC) 5 MG tablet Take 1 tablet (5 mg total) by mouth daily. Active aspirin 81 MG EC tablet 1 tab(s) orally once a day for 30 days Active famotidine (PEPCID) 20 MG tablet Take 1 tablet (20 mg total) by mouth daily. 4 Active fluticasone propionate (FLONASE) 50 mcg/actuation nasal spray 1 spray daily. Act clair Space Chamber spcr SMARTSIG:Via Inhaler As Directed 4 Active montelukast (SINGULAIR) 10 mg tablet Take 1 tablet (10 mg total) by mouth daily. Active omeprazole (PriLOSEC) 20 MG capsule Take 1 capsule (20 mg total) by mouth daily. 4 Active potassium chloride (KLOR-CON) 20 mEq CR tablet Take 1 tablet (20 mEq total) by mouth 2 (two) times daily. Active pregabalin (LYRICA) 300 MG capsule Take 1 capsule (300 mg total) by mouth 2 (two) times daily. Active propranoloL (INDERAL) 40 MG tablet 1 tab(s) orally 2 times a day for 90 days Take second dose in early afternoon Active coenzyme Q10 100 mg capsule 1 (one) time each day at the same time. Active vitamin B complex-folic acid (BALANCE B-50) 0.4 mg tablet 1 tab(s) orally once a day for 30 day(s) Active oxyCODONE-aceta minophen (PERCOCET) 10-325 mg per tablet Take 1 tablet by mouth every 4 (four) hours as needed for pain Look-alike/S ound-alike medication. Max Daily Amount: 6 tablets Active Social History Tobacco Use Types Packs/Day Years Used Date Smoking Tobacco: Never Assessed Food Insecurity Answer Date Recorded Food run out past 12 months Not on file 09/2023 Food did not last past 12 months Not on file 02/18/2024 Employment Answer Date Recorded Help finding and keeping a job Not on file 0 02/18/2024 Family and Community Support Answer Yogesh e Recorded Help with Day to Day Activities Not on file 02/18/2024 Feeling Lonely or Isolated Not on file 02/17 Educational Attainment Answer Date Alvaro rded Speak language other than Ethiopian at home Not on file 02/18/2024 Want help with school or training Not on file 02/18/2024 Substance Use Answer Date Recorded Used prescription meds for non-medical reasons N ot on file 02/18/2024 Used illegal drugs past 12 months Not on file 02/18/2024 Sex and Gender Information Value Date Recorded Sex Assigned at Not on file Legal Sex Male 1:33 PM CDT Gender Identity Not on file Sexual Orientation Not on file Last Filed Vital Signs Vital Sign Reading Time Taken Comments Blood Pressure 116/63 03/30/2024 11:32 AM EDT Pulse 70 03/30/2024 11:32 AM EDT Temperature - - Respiratory Rate 16 03/30/2024 11:32 AM EDT Oxygen Saturation 96% 03/30/2024 11:32 AM EDT Inhaled Oxygen Concentration - - Weight 125.6 kg (277 lb) 03/30/2024 11:32 AM EDT Height 185.4 cm (6' 1 ) 03/30/2024 11:32 AM EDT Body Mass Index 36.55 03/30/2024 11:32 AM EDT Plan of Treatment Health Maintenance Due Date Last Done Comments CT Colonography 1968 Colonoscopy 1968 Colorectal Cancer Screening 1968 FOBT/FIT 1968 Fit-DNA (Cologuard) 1968 Sigmoidoscopy 1968 Depression Screening (12+) 1980 Tobacco Cessation Counseling and Screening (12+) 1980 HIV Screening 10/20/1983 Hepatitis C Screening 1986 Lipid Panel 10/20/2003 Shingles Vaccine (Zoster) (1 of 2) 2018 Medicare Initial AWV [id number] 07/18/2019 COVID-19 VACCINE (2 - 2023-2 5 season) 2024 08/23/2020 Influenza Vaccine (#1) 2025 2, 02/05/2021, 04/06/2020 DTAP/TDAP/TD VACCINES (4 - Tdap) 07/11/2027 07/11/2017, 04/30/2017, 02/28/2017 Pneumococcal 50+ years Completed 9, 09/08/2017, 07/11/2017, Additional history exists Insurance [facility] MEDICARE PPO Care Teams Oil Well Cable Tool Driller Relationship Specialty Start Date End Date Van Paris MD [address] [place] [address] PCP - General Adolescent Medicine 03/30/24
--- OUTSIDE RECORDS SUMMARY | 2024-12-21 15:05 | XMS_ITS | Referral Summary ---
Author Organization [facility] ([place], [place], [place], [place]) Address [address] [place] [address] Care Team Providers Care Label Cutter Name Role Phone Van Paris MD Primary Care Provider + [phone] Allergies Active Allergy Reactions Criticality Noted Date [...] Date Alvaro rded Speak language other than Honduran at home Not on file 02/18/2024 Want [...] 03/30/2024 11:32 AM EDT Plan of Treatment Not on file Insurance [employer] MEDICARE PPO Care Teams Label Cutter Relationship Specialty Start Date End Date Van Paris MD [address] [place] [address] PCP - General Adolescent Medicine 03/30/24
--- OUTSIDE RECORDS SUMMARY | 2024-12-21 15:05 | XMS_ITS | Encounter Summary ---
Author Organization [facility] Address [address] [place] [address] Care Team Providers Care Helper Coordinator Name Role Phone Van Paris MD Primary Care Provider [phone] Encounter Details Date Type Department Care Team (Late Contact Info) Description 08/19/2024 Orders Only External Location [address] [place] [address] Provider, External Social History Tobacco Use Types [...] Description 01/25/2025 3:40 PM EDT Office Visit [facility] [place] [address] [facility]. [address] [place] [address] Jevon Gates MD [address] [place] [address] 03/01/2025 10:30 AM EDT Appointment [facility] [address] [place] [phone] 10/05/2025 11:00 AM EDT Clinical Support [facility] Hematology/BMT and Cellular Therapy Program [address] [place] [address] 10/05/2025 11:30 AM EDT Office Visit [facility]BMT and Cellular Therapy Program [address] [place] [address] Hailey La, MACHINE STRIPER 800 [facility] [address] [place] [address] documented as of this encounter Procedures Procedure Name Priority Date/Time Associated Diagnosis Comments CT THORACIC OUTSIDE IMAGES 08/19/2024 1:08 PM EST documented in this encounter Results * CT THORACIC OUTSIDE IMAGES (08/19/2024 1:08 PM EST) Anatomical Region Laterality Modality Computed Tomogra phy 08/19/2024 1:08 PM EST us External Provider IMG CT PROCEDURES Final Result documented in this encounter Visit Diagnoses Not on filedocumented in this encounter Additional Health Concerns Assessment Noted Time A fall risk assessment has been complete d for the patient 09/11/2023 2:33 PM EDT documented as of this encounter Care Teams Helper Coordinator Relationship Specialty Start Date End Date Van Paris MD [address] [place] [address] PCP - General 10/27/20 documented as of this encounter
--- OUTSIDE RECORDS SUMMARY | 2024-12-21 15:06 | XMS_ITS | Encounter Summary ---
Author Organization [facility] Address [address] [place] [address] Care Team Providers Care Bicycle Technician Name Role Phone Van Paris MD Primary Care Provider [phone] Encounter Details Date Type Department Care Team (Latest Contact Info) Description 11/30/2024 Travel Social History Tobacco Use Types Packs/Day [...] as of this encounter Functional Status * AUDIT-C Score Answer Date of Assessment Author 0 11/30/2024 9:46 AM Meagan Perla * Question Answer Date of Assessment Author Q1: How often do you have a drink containing alcohol? Never 11/30/2024 9:46 AM Meagan Perla Q2: How many drinks containing alcohol do you have on a typical day when you are drinking? Patient does not drink 11/30/2024 9:46 AM Meagan ePrla Q3: How often do you have six or more drinks on one occasion? Never 11/30/2024 9:46 AM Meagan Perla * Over the past 2 weeks, how often have you been bothered by any of the following problems? Question Answer Date of Assessment Author Little interest or pleasure in doing things Not at all 11/30/2024 9:48 AM EDT Meagan Atkins Feeling down, depressed, or hopeless Not at all 11/30/2024 9:48 AM EDT Meagan Atkins Patient Health Questionnaire -2 Score [...] Meagan Atkins documented as of this encounter Plan of Treatment Upcoming Encounters Date Type Department Care Team (Late st Contact Info) Description 01/25/2025 3:40 PM EDT Office Visit [facility] [address] [place] [id number] Jevon Gates MD [address] [place] [id number] 03/01/2025 10:30 AM EDT Appointment [facility] [address] [place] [phone] 10/05/2025 11:00 AM EDT Clinical Support [facility] [address] [place] [phone] 10/05/2025 11:30 AM EDT Office Visit [facility] [address] [place] [phone] Hailey La, STAFFING [employer]ANCH MANAGER [address] [facility] [address] [place] [address] documented as of this encounter Visit Diagnoses Not on filedocumented in this encounter Additional Health Concerns Assessment Noted Time A fall risk assessment has been complete d for the patient 11/30/2024 9:49 AM EDT A Body Mass Index follow-up plan has been documented for the patient 11/30/2024 11:38 AM EDT documented as of this encounter Care Teams Bicycle Technician Relationship Specialty Start Date End Date Van Paris MD [address] [place] [address] [place] [id number] PCP - General 10/27/20 documented as of this encounter
--- OUTSIDE RECORDS SUMMARY | 2024-12-21 15:06 | XMS_ITS | Clinical Summary ---
Author Organization [facility] Address [address] [place] [address] Care Team Providers Care Senior Occupational Therapist Name Role Phone Van Paris MD Primary Care Provider [phone] Allergies Active Allergy Reactions Criticality Noted Date Comments Amoxicillin-Pot Clavulanate Rash Low 09/11/19 24 Banana Shortness of breath High 08/29/2022 Other Shortness of breath, Other - please document in the comment field,Swelling High 09/29/2015 Medications acyclovir (Zovirax) 400 MG tablet Take 1 tablet (400 mg) by mouth 2 (two) times a day. 08/27/2016 Active albuterol 108 (90 Base) MCG/ACT inhaler 2 puff(s) 09/03/2016 Act clair amLODIPine (Norvasc) 5 MG tablet 1 (one) time each day at the same time. 09/07/2020 Active aspirin 81 MG EC tablet 1 (one) time each day at the same time. Active Coenzyme Q10 (Q-SORB) 100 MG capsule 1 (one) time each day at the same time. Active famotidine (Pepcid) 20 MG tablet Take 1 tablet (20 mg) by mouth 1 (one) time each day. 07/30/2021 Active montelukast (Singulair) 10 MG tablet 1 (one) time each day at the same time. Active omeprazole (PriLOSEC) [address] capsule Take 1 capsule (20 mg) by mouth 1 (one) time each day. 08/12/2021 Active oxyCODONE-aceta minophen (Percocet) 10-325 MG tablet TAKE 1 TABLET BY MOUTH EVERY 8 HOURS NEEDED FOR CANCER PAIN 05/04/2021 Active pregabalin (Lyrica) 300 MG capsule every 12 (twelve) hours. Active B Complex Vitamins (vitamin-B complex) split tablet 1 (one) time each day at the same time. Active fluticasone (Flonase) 50 MCG/ACT nasal spray USE 1 SPRAY(S) IN EACH NOSTRIL ONCE DAILY 07/31/2022 Active potassium chloride CR (Klor-Con M20) 20 MEQ ER tablet Take 20 mEq by mouth. 07/26/2022 Active potassium chloride CR (K-Tab) 20 MEQ ER tablet Take 1 tablet (20 mEq) by mouth 2 (two) times a day. Active Breztri Aerosphere 160-9-4.8 MCG/ACT aerosol every 12 (twelve) hours. 12/18/2022 Active furosemide (Lasix) 20 MG tablet Take 1 tablet by mouth daily. 08/25/2024 Active pantoprazole (Protonix) 40 MG EC tablet Take 1 tablet by mouth daily. 10/04/2024 Active propranolol (Inderal) 40 MG tablet Take 1 tablet by mouth 2 (two) times a day. 09/02/2024 Active Active Problems Problem Noted Date Diagnosed Date Multiple myeloma in remission 08/29/2021 Multiple myeloma 03/17/2017 Overview (10/01/2024): Multiple myeloma not having achieved remission Encounters Date Type Department Care Team Description 11/30/2024 9:20 AM EDT Office Visit [facility] [address] [phone] Jevon Gates MD Exertional dyspnea (Primary Dx); Right ventricular dilation 11/30/2024 Travel 11/15/2024 Results Follow-Up [facility] [address] [facility]. [address] [phone] Yolanda Whitman APRN 11/15/2024 Orders Only [facility] [address] [facility]. [address] [phone] Yolanda Whitman, SECURITY OFFICER Exertional dyspnea (Primary Dx); Right ventricular dilation 11/10/2024 12:44 PM EDT - 11/10/2024 11:59 PM EDT Hospital Encounter [facility] Pulmonary Function Testing [address] [place] [phone] Exertional dyspnea; Right ventricular dilation Discharge Disposition: Home or Self Care 11/10/2024 Travel 10/26/2024 2:40 PM EDT Consult [facility] [address] [facility]. [address] [place] [phone] Jevon Gates MD Exertional dyspnea (Primary Dx); Right ventricular dilation 10/26/2024 Travel 10/06/2024 8:30 AM EDT Office Visit [facility] Hematology/BMT and Cellular Therapy Program [address] [facility], [facility] [place] [phone] Hailey La, SECURITY OFFICER Multiple myeloma, remission status unspecified (CMS/HCC) (Primary Dx) 10/06/2024 8:00 AM EDT Clinical Support [facility] Hematology/BMT and Cellular Therapy Program [address] [facility], [address] [place] [phone] 10/06/2024 Travel 10/05/2024 Orders Only [facility]ology/BMT and Cellular Therapy Program [address] [facility], [address] [place] [phone] Alka Alvarado, RN Multiple myeloma, remission status unspecified (CMS/HCC) (Primary Dx) from Last 3 Months Immunizations Immunization Administration Dates Next Due DTaP 04/30/2017,02/28/2017 DTaP / Hep B / IPV 07/11/2017 Hep B, adult 09/08/2017,04/30/2017,02/28/2017 Hib (PRP-OMP) 02/28/2017 Hib (PRP-T) 07/11/2017,04/30/2017 IPV 04/30/2017,02/28/2017 Influenza, injectable, quadr ivalent, preservative free 04/21/2023,04/12/2019,02/28/2017 Influenza, recombinant, quad rivalent, injectable, preservative free 04/21/2024,05/29/2022,02/05/2021,04/06 MMR 08/26/2018 Pneumococcal Conjugate PCV 13 07/11/2017, 017,02/28/2017 Pneumococcal Polysaccharide PPV23 05/10/2019, Zoster, Recombinant 08/25/2024 Family History Medical History Relation Name Comments Cancer Father Asthma Mother Relation Name Status Comments Father Mother Social History Tobacco Use Types Packs/Day Years Used Date Smoking Tobacco: Former Cigarettes Smokeless Tobacco: Current Chew Tobacco Cessation:Ready to Q uit: Not Asked; Counseling Given: Not Answered Alcohol Use Standard Drinks/Week Comments Never 0 [...] Pulse 59 11/30/2024 9:45 AM EDT Temperature 36.6 C (97.8 F) 10/06/2024 8:36 AM EDT Respiratory Rate 18 10/26/2024 2:36 PM EDT Oxygen Saturation 96% 11/30/2024 9:45 AM EDT Inhaled Oxygen Concentration - - Weight 120 kg (264 lb 1.8 oz) 11/30/2024 9:45 AM EDT Height 185.4 cm (6' 1 ) 11/30/2024 9:45 AM EDT Body Mass Index 34.85 11/30/2024 9:45 AM EDT Plan of Treatment Upcoming Encounters Date Type Department Care Team (Late st Contact Info) Description 01/25/2025 3:40 PM EDT Office Visit [facility] [address] [facility]. [address] [place] [address] Jevon Gates MD [address] [place] [phone] 03/01/2025 10:30 AM EDT Appointment [facility] [address] [place] [phone] 10/05/2025 11:00 AM EDT Clinical Support [facility] Hematology/BMT and Cellular Therapy Program [address] [facility], [facility] [place] [phone] 10/05/2025 11:30 AM EDT Office Visit [facility] Hematology/BMT and Cellular Therapy Program [address] [facility], [facility] [place] [phone] Hailey La, SECURITY OFFICER [address] [facility] [address] [place] [address] Health Maintenance Due Date Last Done Comments [facility]-HIV Screening 1970 [facility]-Hepatitis C Screening 1968 [facility]-Medicare Annual Wellness (AWV) 1970 [facility]-Infant/Child/Adol SDOH Screenings 1968 [facility]- SDOH Screenings 1986 [facility]-Adult SDOH Screenings 1986 CT Colonography 2013 Colonoscopy 2013 FIT-DNA 2013 FIT 2013 FOBT 2013 Sigmoidoscopy 2013 [facility]-Colorectal Cancer Screening 2013 [facility]-IPV Vaccines (3 of 3 - Adult catch-up series) 01/08/2018 07/11/2017, 04/30/2017, 02/28/2017 [id number] Vaccine (2 - Honey risk series) 09/20/2020 08/23/2020 [facility]-Pneumococcal Vaccine: 50+ Years (4 of 4 - PCV20 or PCV21) 05/10/2024 05/10/2019, 09/08/2017, 07/11/2017, Additional history exists [facility]-Zoster Vaccines (2 of 2) 10/20/2024 08/25/2024 [facility]-Influenza Vaccine (#1) 02/14/202504/21, 04/21/2023, 05/29/2022, Additional history exists [facility]-Depression Screening 11/30/2025 11/30/2024 [facility]-DTaP,Tdap,and Td Vaccines (4 - Tdap) 07/11/2027 07/11/2017, 04/30/2017, 02/28/2017 [facility]-HIB Vaccines Aged Out 07/11/2017, , 02/28/2017 No longer eligible based on patient's age to complete this topic [facility]-Hepatitis B Vaccines Completed 018, 07/11/2017, 04/30/2017, Additional history exists [facility]-Obesity Intervention Completed 11/30/2024, 10/14 HPV Vaccines Aged Out No longer eligi ble based on patient's age to complete this topic [facility]-Hepatitis A Vaccines Aged Out No longer eligible based on patient's age to complete this topic [facility]-Rotavirus Vaccines Aged Out No lo nger eligible based on patient's age to complete this topic Procedures Procedure Name Priority Date/Time Associated Diagnosis Comments EXERCISE ECG Routine 11/10/2024 2:15 PM EDT Exertional dyspnea Right ventricular dilation [facility] CARDIOPULMONARY EXERCISE TESTING - COMPLEX STRESS TEST, PULMONARY Routine 11/10/2024 2:15 PM EDT Exertional dyspnea Right ventricular dilation ECG ADULT Routine 10/26/2024 3:51 PM EDT Exertional dyspnea MARGIE SERUM, PATHOLOGIST INTERPRETATION Routine 10/06/2024 8:24 AM EDT Multiple myeloma, remission status unspecified (CMS/HCC) PROTEIN ELECTROPHORESIS, PATHOLOGIST INTERPRETATION Routine 10/06/2024 8:24 AM EDT Multiple myeloma, remission status unspecified (CMS/HCC) QIG, SERUM Routine 10/06/2024 8:24 AM EDT Multiple myeloma, remission status unspecified (CMS/HCC) IMMUNOFIXATION ELECTROPHORESIS Routine 10/06/2024 8:24 AM EDT Multiple myeloma, remission status unspecified (CMS/HCC) KAPPA LAMBDA QUANTITATIVE FREE LIGHT CHAINS WITH RATIO Routine 10/06/2024 8:24 AM EDT Multiple myeloma, remission status unspecified (CMS/HCC) TOTAL PROTEIN, SERUM Routine 10/06/2024 8:24 AM EDT Multiple myeloma, remission status unspecified (CMS/HCC) PROTEIN ELECTROPHORESIS, SERUM Routine 10/06/2024 8:24 AM EDT Multiple myeloma, remission status unspecified (CMS/HCC) CBC WITH AUTO DIFFERENTIAL Routine 10/06/2024 8:24 AM EDT Multiple myeloma, remission status unspecified (CMS/HCC) COMPREHENSIVE METABOLIC PANEL, PLASMA Routine 10/06/2024 8:24 AM EDT Multiple myeloma, remission status unspecified (CMS/HCC) IMMUNOFIXATION ELECTROPHORESIS Routine 10/06/2024 8:24 AM EDT Multiple myeloma, remission status unspecified (CMS/HCC) KAPPA LAMBDA QUANT FREE LIGHT CHAINS WITH RATIO ORDERABLE Routine 10/06/2024 8:24 AM EDT Multiple myeloma, remission status unspecified (CMS/HCC) PROTEIN ELECTROPHORESIS, SERUM Routine 10/06/2024 8:24 AM EDT Multiple myeloma, remission status unspecified (CMS/HCC) from Last 3 Months Results * CPET ECG (11/10/2024 2:15 PM EDT) Anatomical Region Laterality Modality PFT 11/10/2024 12:5 1 PM EDT Narrative 11/10/2024 3:04 PM EDT Images from the original result were not included. [facility] Cardiopulmonary Exercise Testing Laboratory The risks and benefits of progressive maximal cardiopulmonary exercise testing were explained to the patient. Informed, written consent was obtained prior to the start of the procedure. The patient was exercised to a symptom-limited maximum with a progressively increasing workload protocol. Continuous oxygen saturation, ECG and gas analysis were performed. Name: Luis Miguel Walkre Study Date: 11/10/2024 Indication: Shortness of Breath [...] ischemic changes at maximum exercise. Heart Rate [place]: 9 bpm (5%) Pulmonary Performance/Ventilatory Response: Mild [...] at peak exercise was 39 L/min (Breathing [place] Ratio: 36%) suggesting no pulmonary mechanical limitation [...] available for direct comparison. Bassem Falcon DO Plater Barrelphotoflash powder mixer Cardiovascular Medicine Director of Sports Cardiology [facility] Yolanda Whitman APRN PFT ORDERABLES Final Result * (ABNORMAL) Cardiopulmonary Exercise Test (11/10/2024 2:15 PM EDT) [id number] 4.11 3.91 - 6.25 L VYAIRE PFT [id number] 3.95 3.91 - 6.25 L VYAIRE PFT [id number] 3.26 3.01 - 4.81 L VYAIRE PFT FEV1 PRE 3.15 3.01 - 4.81 L VYAIRE PFT [id number] 79.25 66.35 - 87.75 % VYAIRE PFT FEV1/FVC PRE 79.76 66.35 - 87.75 % VYAIRE PFT [id number]%_POST 3.01 1.72 - 5.55 L/s VYAIRE PFT ZGH37-96% PRE 3.03 1.72 - 5.55 L/s VYAIRE PFT [id number] 7.69 7.45 - 12.31 L/s VYAIRE PFT PEF PRE 7.62 7.45 - 12.31 L/s VYAIRE PFT [id number] 109.15(A) 133.54 - 133.54 L/min VYAIRE PFT Anatomical Region Laterality Modality PFT 11/10/2024 1:03 PM EDT Narrative 11/10/2024 3:04 PM EDT Images from the original result were not included. [facility] Cardiopulmonary Exercise Testing Laboratory The [...] ischemic changes at maximum exercise. Heart Rate [place]: 9 bpm (5%) Pulmonary Performance/Ventilatory Response: Mild [...] at peak exercise was 39 L/min (Breathing [place] Ratio: 36%) suggesting no pulmonary mechanical limitation [...] available for direct comparison. Bassem Falcon DO Plater Barrelphotoflash powder mixer Cardiovascular Medicine Director of Sports Cardiology [facility] [place] Yolanda Whitman APRN PFT ORDERABLES Final Result * ECG Adult (Now - Performed in your clinic) (10/26/2024 3:51 PM EDT) EKG DIAGNOSIS CLASS Normal MUSE ECG Ventricular Rate 63 BPM MUSE ECG Atrial Rate 63 BPM MUSE ECG NV Interval 160 ms MUSE ECG QRSD Interval 90 ms MUSE ECG QT Interval 416 ms MUSE ECG QTC Interval 425 ms MUSE ECG P [place] 47 degrees MUSE ECG R [place] 58 degrees MUSE ECG T Wave [place] 80 degrees MUSE ECG Diagnosis Normal sinus rhythm with sinus arrhythmia MUSE ECG Diagnosis Normal ECG MUSE ECG Diagnosis MUSE ECG Diagnosis Confirmed by Maik Tejeda ([id number]) on 10/27/2024 8:18:21 AM MUSE ECG 10/26/2024 3:51 PM EDT 10/27/2024 8:18 AM EDT us Yolanda Casas Whitman SECURITY OFFICER ECG ORDERABLES Final Result MUSE ECG * QIG, Serum (10/06/2024 8:24 AM EDT) IGA 340 75 - 400 mg/dL 10/06/2024 9:14 AM EDT [facility] IGG 1,277 720 - 1,589 mg/dL 10/06/2024 9:14 AM EDT [facility] IGM 52 35 - 225 mg/dL 10/06/2024 9:14 AM EDT [facility] Blood Venous blood specimen / Unknown Venipuncture / Unknown 10/06/2024 8:24 AM EDT 10/06/2024 8:41 AM EDT Hailey La SECURITY OFFICER LAB BLOOD ORDERABLES Final Res ult [facility] [address] [place] [address] * (ABNORMAL) [place] Lambda Quant Free Light Chains w/Ratio (10/06/2024 8:24 AM EDT) [place] Lambda Free Light Chain Ratio 1.31 0.26 - 1.65 Ratio 10/08/2024 4:49 AM EDT [facility] [place] Quant Free Light Chains 27.97(H) 3.30 - 19.40 mg/L 10/08/2024 4:49 AM EDT [facility] Lambda Quant Free Light Chains 21.36 5.71 - 26.30 mg/L 10/08/2024 4:49 AM EDT [facility] Blood Venous blood specimen / Unknown Venipuncture / Unknown 10/06/2024 8:24 AM EDT 10/06/2024 8:42 AM EDT Narrative [facility] - 10/08/2024 4:49 AM EDT Undetected antigen excess is a rare event but cannot be excluded.If these free light chain results do not agree with other clinical or laboratory findings,or if the sample is from a patient that has previously demonstrated antigen excess,the results must be checked by retesting at a higher sample dilution. Results should always be interpreted in conjunction with other laboratory tests and clinical evidence; any anomalies should be discussed with the testing laboratory. Test performed at [facility]. Hailey Suarezmorgan FRAZIER LAB BLOOD ORDERABLES Final Res ult Performing Organization Address [facility] Co de Phone Number [facility] [address] [place] [address] * Total Protein, Serum (10/06/2024 8:24 AM EDT) Pathologist [facility] Total Protein 6.9 6.2 - 7.7 g/dL 10/06/2024 9:14 AM EDT [facility] Blood Venous blood specimen / Unknown Venipuncture / Unknown 10/06/2024 8:24 AM EDT 10/06/2024 8:41 AM EDT Hailey La APRN LAB BLOOD ORDERABLES Final Res ult Performing Organization Address [facility] Co de Phone Number [facility] [address] [place] [address] * (ABNORMAL) Protein Electrophoresis, Serum (10/06/2024 8:24 AM EDT) Pathologist [facility] Albumin Electrophoresis, Serum 3.6 3.6 - 4.7 g/dL 10/07/2024 5:29 AM EDT [facility] Alpha 1 Globulin Electrophoresis, Serum 0.3 0.2 - 0.4 g/dL 10/07/2024 5:29 AM EDT [facility] Alpha 2 Globulin Electrophoresis, Serum 1.0(H) 0.5 - 0.9 g/dL 10/07/2024 5:29 AM EDT [facility] Beta 1 Globulin Electrophoresis, Serum 0.4 0.3 - 0.5 g/dL 10/07/2024 5:29 AM EDT [facility] Beta 2 Globulin Electrophoresis, Serum 0.5 0.2 - 0.5 g/dL 10/07/2024 5:29 AM EDT [facility] Gamma Globulin Electrophoresis, Serum 1.1 0.6 - 1.5 g/dL 10/07/2024 5:29 AM EDT [facility] Interpretation, Serum Protein Electrophoresis Pathology report to follow. 10/07/2024 5:29 AM EDT [facility] Blood Venous blood specimen / Unknown Venipuncture / Unknown 10/06/2024 8:24 AM EDT 10/06/2024 8:42 AM EDT us Hailey La SECURITY OFFICER LAB BLOOD ORDERABLES Final Res ult Performing Organization Address [facility] Co de Phone Number [facility] [address] [place] [address] * Immunofixation Electrophoresis (10/06/2024 8:24 AM EDT) Immunofixation Interpretation Pathology report to follow. 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 A resident was involved in the service. I attest I examined the relevant preparations for the specimens and confirmed the diagnosis or interpretation. 10/08/2024 8:53 PM EDT [facility] Pathologist Signature, MARGIE Serum Reviewed by: Sharad Zhao MD 10/08/2024 8:53 PM EDT [facility] LAB CP ASR DISCLAIMER Yes 10/08/2024 8:53 PM EDT [facility] Blood Venous blood specimen / Unknown Venipuncture / Unknown 10/06/2024 8:24 AM EDT 10/06/2024 8:42 AM EDT us Hailey La APRN LAB PATHOLOGY ORDERABLES Final Result Performing Organization Address [facility]/ZIP Co de Phone Number [facility] [address] [place] [address] * Protein electrophoresis serum, pathologist interpretation (10/06/2024 8:24 AM EDT) Pathologist [facility] Clinical Diagnosis, SPEP 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 This pattern is consistent with an acute inflammatory response which may be associated with infection, trauma, disorders resulting in increased tissue turnover or necrosis, and a variety of other inflammatory conditions. A resident was involved in the service. I attest I examined the relevant preparations for the specimens and confirmed the diagnosis or interpretation. 10/07/2024 11:57 AM EDT [facility] Pathologist Signature, SPEP Reviewed by: Miguel Renee MD 10/07/2024 11:57 AM EDT [facility] LAB CP ASR DISCLAIMER Yes 10/07/2024 11:57 AM EDT [facility] Blood Venous blood specimen / Unknown Venipuncture / Unknown 10/06/2024 8:24 AM EDT 10/06/2024 8:42 AM EDT us Hailey La APRN LAB PATHOLOGY ORDERABLES Final Result Performing Organization Address [facility]/ZIP Co de Phone Number [facility] [address] [place] [address] * (ABNORMAL) CBC and Differential (10/06/2024 8:24 AM EDT) Pathologist [facility] WBC Count 5.08 3.70 - 10.30 10*3/uL LAB HEMATOLOGY METHOD 10/06/2024 8:38 AM EDT [facility] RBC Count 4.64 4.60 - 6.10 10*6/uL LAB HEMATOLOGY METHOD 10/06/2024 8:38 AM EDT [facility] HGB 15.0 13.7 - 17.5 g/dL LAB HEMATOLOGY METHOD 10/06/2024 8:38 AM EDT [facility] HCT 44.0 40.0 - 51.0 % LAB HEMATOLOGY METHOD 10/06/2024 8:38 AM EDT [facility] Platelet Count 172 155 - 369 10*3/uL LAB HEMATOLOGY METHOD 10/06/2024 8:38 AM EDT [facility] MCV 95 79 - 98 fL LAB HEMATOLOGY METHOD 10/06/2024 8:38 AM EDT [facility] MCH 32.3(H) 26.0 - 32.0 pg LAB HEMATOLOGY METHOD 10/06/2024 8:38 AM EDT [facility] MCHC 34.1 30.7 - 35.5 g/dL LAB HEMATOLOGY METHOD 10/06/2024 8:38 AM EDT [facility] RDW 12.6 11.5 - 14.5 % LAB HEMATOLOGY METHOD 10/06/2024 8:38 AM EDT [facility] MPV 9.6 8.8 - 12.5 fL LAB HEMATOLOGY METHOD 10/06/2024 8:38 AM EDT [facility] nRBC 0.0 <=0.0 per 100 WBCs LAB HEMATOLOGY METHOD 10/06/2024 8:38 AM EDT [facility] Differential Type Automated LAB HEMATOLOGY METHOD 10/06/2024 8:38 AM EDT [facility] Neutrophils % 54 % LAB HEMATOLOGY METHOD 10/06/2024 8:38 AM EDT [facility] Lymphocytes % 24 % LAB HEMATOLOGY METHOD 10/06/2024 8:38 AM EDT [facility] Monocytes % 17 % LAB HEMATOLOGY METHOD 10/06/2024 8:38 AM EDT [facility] Eosinophils % 3 % LAB HEMATOLOGY METHOD 10/06/2024 8:38 AM EDT [facility] Basophils % 1 % LAB HEMATOLOGY METHOD 10/06/2024 8:38 AM EDT [facility] Immature Granulocytes % 1 % LAB HEMATOLOGY METHOD 10/06/2024 8:38 AM EDT [facility] Neutrophils Absolute 2.83 1.60 - 6.10 10*3/uL LAB HEMATOLOGY METHOD 10/06/2024 8:38 AM EDT [facility] Lymphocytes Absolute 1.20 1.20 - 3.90 10*3/uL LAB HEMATOLOGY METHOD 10/06/2024 8:38 AM EDT [facility] Monocytes Absolute 0.86 0.30 - 0.90 10*3/uL LAB HEMATOLOGY METHOD 10/06/2024 8:38 AM EDT [facility] Eosinophils Absolute 0.13 0.00 - 0.50 10*3/uL LAB HEMATOLOGY METHOD 10/06/2024 8:38 AM EDT [facility] Basophils Absolute 0.03 0.00 - 0.10 10*3/uL LAB HEMATOLOGY METHOD 10/06/2024 8:38 AM EDT [facility] Immature Granulocytes Absolute 0.03 0.00 - 0.06 10*3/uL LAB HEMATOLOGY METHOD 10/06/2024 8:38 AM EDT [facility] Blood Venous blood specimen / Unknown Venipuncture / Unknown 10/06/2024 8:24 AM EDT 10/06/2024 8:35 AM EDT Narrative [facility] - 10/06/2024 8:38 AM EDT Therapeutic decision making should be based on absolute values, rather than percentages. us Hailey La APRN LAB BLOOD ORDERABLES Final Res ult [facility] [address] [place] [id number] * (ABNORMAL) Comprehensive Metabolic Panel, Plasma (10/06/2024 8:24 AM EDT) Glucose, Plasma 108(H) 74 - 99 mg/dL 10/06/2024 9:14 AM EDT [facility] BUN, Plasma 12 7 - 21 mg/dL 10/06/2024 9:14 AM EDT [facility] Creatinine, Plasma 1.02 0.70 - 1.20 mg/dL 10/06/2024 9:14 AM EDT [facility] BUN/Creatinine Ratio 12 10/06/2024 9:14 AM EDT [facility] Sodium, Plasma 142 136 - 145 mmol/L 10/06/2024 9:14 AM EDT [facility] Potassium, Plasma 4.4 3.6 - 4.9 mmol/L 10/06/2024 9:14 AM EDT [facility] Chloride, Plasma 105 97 - 107 mmol/L 10/06/2024 9:14 AM EDT [facility] CO2, Plasma 27 22 - 29 mmol/L 10/06/2024 9:14 AM EDT [facility] Anion Gap 10 6 - 16 mmol/L 10/06/2024 9:14 AM EDT [facility] Total Calcium, Plasma 9.6 8.9 - 10.2 mg/dL 10/06/2024 9:14 AM EDT [facility] Total Protein 7.4 6.3 - 7.9 g/dL 10/06/2024 9:14 AM EDT [facility] Albumin, Plasma 3.9 3.5 - 5.2 g/dL 10/06/2024 9:14 AM EDT [facility] AST, Plasma 23 10 - 50 U/L 10/06/2024 9:14 AM EDT [facility] Comment:Hemolyzed, result ma y be falsely increased. ALT, Plasma 31 10 - 50 U/L 10/06/2024 9:14 AM EDT [facility] Alkaline Phosphatase, Plasma 111 40 - 115 U/L 10/06/2024 9:14 AM EDT [facility] Total Bilirubin, Plasma 1.1 0.2 - 1.1 mg/dL 10/06/2024 9:14 AM EDT [facility] eGFRcr 86.8 mL/min/1.7 3m*2 10/06/2024 9:14 AM EDT [facility] Comment:Reported eGFRcr in m L/min/1.73m2 is based the CKD-EPI 2020 equation that does not use a race coefficient. Blood Venous blood specimen / Unknown Venipuncture / Unknown 10/06/2024 8:24 AM EDT 10/06/2024 8:42 AM EDT us Hailey La APRN LAB BLOOD ORDERABLES Final Res ult [facility] [address] [place] [address] from Last 3 Months Insurance [employer] Care Teams Senior Occupational Therapist Relationship Specialty Start Date End Date Van Paris MD [address] [place] [address] PCP - General 10/27/20
--- OUTSIDE RECORDS SUMMARY | 2024-12-21 15:06 | XMS_ITS | Encounter Summary ---
Author Organization [facility] Address [address] [place] [address] Care Team Providers Care Food Safety Scientist Name Role Phone Van Paris MD Primary Care Provider [phone] Encounter Details Date Type Department Care Team (Latest Contact Info) Description 11/10/2024 Travel Social History Tobacco Use Types Packs/Day [...] Description 01/25/2025 3:40 PM EDT Office Visit [facility] [place] [address] [facility] [place] [phone] Jevon Gates MD [address] [place] [phone] 03/01/2025 10:30 AM EDT Appointment [facility] [address] [place] [phone] 10/05/2025 11:00 AM EDT Clinical Support [facility] [address] [place] [address] 10/05/2025 11:30 AM EDT Office Visit [facility] [address] [facility] [place] [address] Hailey La, WASHROOM ATTENDANT [address] [facility] [address] [place] [address] documented as of this encounter Visit Diagnoses Not on filedocumented in this encounter Additional Health Concerns Assessment Noted Time A fall risk assessment has been complete d for the patient 10/26/2024 2:41 PM EDT A Body Mass Index follow-up plan has been documented for the patient 10/26/2024 4:03 PM EDT documented as of this encounter Care Teams Food Safety Scientist Relationship Specialty Start Date End Date Van Paris MD [address] [place] [address] PCP - General 10/27/20 documented as of this encounter
--- OUTSIDE RECORDS SUMMARY | 2024-12-21 15:06 | XMS_ITS | Encounter Summary ---
Author Organization [facility] Address [address] [id number] Care Team Providers Care Literacy Tutor Name Role Phone Van Paris MD Primary Care Provider [phone] Reason for Referral * Consultation (Routine) - Closed Specialty Diagnoses / Procedures Referred By Contac t Referred To Contact Cardiology Diagnoses Shortness of breath Acquired dilation of right ventricle of heart Van Paris MD [address] [place] [address] Phone: tel: fax: Jevon Gates MD [address] [place] [address] Phone: tel: fax: Referral ID Status Reason Start Date Expiration Date V isits Requested Visits Authorized [id number] Closed Specialty Services Required 09/13/2024 03/15/2026 1 1 Encounter Details Date Type Department Care Team (Late st Contact Info) Description 09/13/2024 Community Orders [facility] [address] [place] [address] Van Paris MD [address] [facility] [address] [address] Shortness of breath (Primary Dx); Acquired dilation of right ventricle of heart Social History Tobacco Use Types Packs/Day Years [...] Description 01/25/2025 3:40 PM EDT Office Visit [facility] [place] [address] [facility] [place] [phone] Jevon Gates MD [address] [place] [address] 03/01/2025 10:30 AM EDT Appointment [facility] [address] [place] [phone] 10/05/2025 11:00 AM EDT Clinical Support [facility] [address] [facility] [place] [phone] 10/05/2025 11:30 AM EDT Office Visit [facility] [address] [facility], [facility] [place] [phone] Hailey La, SOUND TECHNICIAN SUPERVISOR [address] [facility] [address] [place] [phone] Scheduled Referrals Name Type Priority Associated Diagnoses Order Schedule Ambulatory referral to Cardiology Outpatient Referral Routine Shortness of breath Acquired Dilation Of Right Ventricle Of Heart Ordered: 09/13/2024 documented as of this encounter Visit Diagnoses Diagnosis Shortness of breath- Primary Acquired dilation of right ventricle of heart documented in this encounter Additional Health Concerns Assessment Noted Time A fall risk assessment has been complete d for the patient 09/11/2023 2:33 PM EDT documented as of this encounter Care Teams Literacy Tutor Relationship Specialty Start Date End Date Van Paris MD [address] [place] [address] PCP - General 10/27/20 documented as of this encounter
--- OUTSIDE RECORDS SUMMARY | 2024-12-21 15:06 | XMS_ITS | Encounter Summary ---
Author Organization [facility] Address [address] [id number] Care Team Providers Care Segmental Paving Supervisor Name Role Phone Van Paris MD Primary Care Provider [phone] Reason for Referral * Imaging (Routine) - Authorized Specialty Diagnoses / Procedures Referred By Contac t Referred To Contact Diagnoses Exertional dyspnea Right ventricular dilation Procedures MR Cardiac Morphology and Function W Velocity Flow Mapping W and WO Contrast Yolanda Whitman APRN [address] [place] [address] Phone: tel: fax: Referral ID Status Reason Start Date Expiration Date V isits Requested Visits Authorized [id number] Authorized 11/15/2024 05/17/2026 1 1 Encounter Details Date Type Department Care Team (Late st Contact Info) Description 11/15/2024 Orders Only [facility] [place] [address] [facility]. [address] [place] [address] Yolanda Whitman APRN [address] [place] [address] Exertional dyspnea (Primary Dx); Right [...] Description 01/25/2025 3:40 PM EDT Office Visit [facility] [place] [address] [facility]. [address] [place] [address] Jevon Gates MD [address] [place] [phone] 03/01/2025 10:30 AM EDT Appointment [facility] [address] [place] [phone] 10/05/2025 11:00 AM EDT Clinical Support [facility] Therapy [facility] [address] [facility], [place] [address] 10/05/2025 11:30 AM EDT Office Visit [facility] [address] [facility], [place] [address] Hailey La, WEBBING WEAVER [address] [facility] [address] [place] [address] Scheduled Orders Name Type Priority Associated Diagnoses Orde r Schedule MR Cardiac Morphology and Function W Velocity Flow Mapping W and WO Contrast Imaging Routine Exertional dyspnea Right ventricular dilation Expected: 11/15/2024 (Approximate), Expires: 05/19/2026 documented as of this encounter Visit Diagnoses [...] documented as of this encounter Care Teams Segmental Paving Supervisor Relationship Specialty Start Date End Date Van Paris MD [address] [place] [address] PCP - General 10/27/20 documented as of this encounter
--- OUTSIDE RECORDS SUMMARY | 2024-12-21 15:06 | XMS_ITS | Patient Health Record ---
Author Organization [facility] D JOSE Address [address] [facility] [address] [place] [address] Care Team Providers Care Geographical Historian Name Role Phone Van Paris Primary Care Provider Migration, Provider Unavailable Unavailable Allergies Allergen (clinical drug ingredient) Drug/Non Drug Allergy documented on EMR Reaction Allergy Type Onset Date Status BANANAS (uncoded) asthma exacerbation Allergy Active amoxicillin / clavulanate Augmentin rash Drug Allergy Active Results Component Value Reference Range Notes CT Scan : Chest, Without Con trast Reviewed date:09/01/2024 08:25:29 AM Interpretation: Performing Lab: Notes/Report: X ray : Chest Reviewed date:09/04/2024 02:19:42 PM Interpretation: Performing Lab: Notes/Report: Echocardiogram Reviewed date:09/13/2024 02:52:29 PM Interpretation: Performing Lab: Notes/Report: M-COVID WITH RESPIRATORY RODRIGUEZ EL Reviewed date:09/01/2024 02:17:43 PM Interpretation: Performing Lab: Notes/Report: recommendations. testing should be performed according to the current CDC treatment/management or public health decision. Follow up virus and should not be the sole basis of a patient Is patient a resident in a congregate care setting? No Negative results do not preclude infection with SARS CoV 2 Date of Symptom onset Is patient currently in ICU? No Emergency Use Authorization only. Is patient currently hospitalized? No This assay is for in vitro diagnostic use under FDA Is patient an [facility] employee? N results to the local Health Department as required. Is the patient employed in healthcare? No physician?s office will continue to report positive covid Does the patient have COVID symptoms? Yes called to the ordering physician. Infection control and the Is this the 1st COVID test for the patient? No Effective 02/06/21, Positive covid results will no longer be No ADENOQIA Not Detected NotDetected CORONAHKU1 Not Detected NotDetected TDLIVKVY32 Not Detected NotDetected [id number] Not Detected NotDetected KONEIAS52 Not Detected NotDetected METAPNEUMO Not Detected NotDetected RHINOENTER Not Detected NotDetected INFLUAPCR Not Detected NotDetected FLUAH1 Not Detected NotDetected [id number] Not Detected NotDetected INFLUAH3 Not Detected NotDetected INFLUB Not Detected NotDetected PARAINFLU1 Not Detected NotDetected PARAINFLU2 Not Detected NotDetected PARAINFLU3 Not Detected NotDetected PARAINFLU 4 Not Detected NotDetected RSVPCR Not Detected NotDetected COVIDHMH Not Detected NotDetected BORDPERT Not Detected NotDetected CHLAMYDPNEUM Not Detected NotDetected MYCOPLASM Not Detected NotDetected LIPID PANEL, STANDARD ([id number]) Reviewed date:01/20/2024 08:52:38 AM Interpretation: Performing Lab:EMILY [employer] [id number] [facility], [facility] HospitalNoutRP[address] Allan Richmond Notes/Report: FASTING: YES FASTING:YES NON-FASTING; NON-FASTING; NON-FASTING CHOLESTEROL, TOTAL 195 <200 mg/dL HDL CHOLESTEROL 45 > OR = 40 mg/dL TRIGLYCERIDES 123 <150 mg/dL LDL-CHOLESTEROL 127 Reference range: <100 Desirable range <100 mg/dL for primary prevention; <70 mg/dL for patients with CHD or diabetic patients with > or = 2 CHD risk factors. LDL-C is now calculated using the Carlos-Reinier calculation, which is a validated novel method providing better accuracy than the Friedewald equation in the estimation of LDL-C. Carlos SS et al. HANNAH. 2013;310(19): 2189-5315 (http://education.[employer]/faq/XIV032) CHOL/HDLC RATIO 4.3 <5.0 (calc) NON HDL CHOLESTEROL 150 <130 mg/dL (calc) For patients with diabetes plus 1 major ASCVD risk factor, treating to a non-HDL-C goal of <100 mg/dL (LDL-C of <70 mg/dL) is considered a therapeutic option. LIPID PANEL, STANDARD (7600) Reviewed date:04/22/2024 02:30:23 PM Interpretation: Performing Lab:EMILY Envoimoinscher [id number] [facility], [facility] [id number] Allan Richmond Notes/Report: FASTING: YES FASTING:YES NON-FASTING; NON-FASTING; NON-FASTING CHOLESTEROL, TOTAL 200 <200 mg/dL HDL CHOLESTEROL 43 > OR = 40 mg/dL TRIGLYCERIDES 141 <150 mg/dL LDL-CHOLESTEROL 132 Reference range: <100 Desirable range <100 mg/dL for primary prevention; <70 mg/dL for patients with CHD or diabetic patients with > or = 2 CHD risk factors. LDL-C is now calculated using the Richy calculation, which is a validated novel method providing better accuracy than the Friedewald equation in the estimation of LDL-C. Carlos MUNGUIA et al. HANNAH. 2013;310(19): 6481-3116 (http://education.sailsquare/faq/NBN202) CHOL/HDLC RATIO 4.7 <5.0 (calc) NON HDL CHOLESTEROL 157 <130 mg/dL (calc) For patients with diabetes plus 1 major ASCVD risk factor, treating to a non-HDL-C goal of <100 mg/dL (LDL-C of <70 mg/dL) is considered a therapeutic option. COMPREHENSIVE METABOLIC PANE L ([id number]) Reviewed date:04/22/2024 02:30:24 PM Interpretation: Performing Lab:EMILY Envoimoinscher [id number] [facility], St[facility] [id number] Allan Richmond Notes/Report: NON-FASTING; NON-FASTING; NON-FASTING FASTING:YES FASTING: YES GLUCOSE 95 65-99 mg/dL Fasting reference interval UREA NITROGEN (BUN) 13 7-25 mg/dL CREATININE 0.87 0.70-1.30 mg/dL EGFR 102 > OR = 60 mL/min/1.73m2 BUN/CREATININE RATIO SEE NOTE: 6-22 (calc) Not Reported: BUN and Creatinine are within reference range. SODIUM 142 135-146 mmol/L POTASSIUM 4.8 3.5-5.3 mmol/L CHLORIDE 106 98-110 mmol/L CARBON DIOXIDE 28 20-32 mmol/L CALCIUM 9.4 8.6-10.3 mg/dL PROTEIN, TOTAL 7.0 6.1-8.1 g/dL ALBUMIN 4.1 3.6-5.1 g/dL GLOBULIN 2.9 1.9-3.7 g/dL (calc) ALBUMIN/GLOBULIN RATIO 1.4 1.0-2.5 (calc) BILIRUBIN, TOTAL 1.3 0.2-1.2 mg/dL ALKALINE PHOSPHATASE 99 35-144 U/L AST 18 10-35 U/L ALT 27 9-46 U/L COMPREHENSIVE METABOLIC PANE L ([id number]) Reviewed date:01/20/2024 08:52:38 AM Interpretation: Performing Lab:EMILY, IAT-[id number] [employer], [id number] Allan Richmond Notes/Report: NON-FASTING; NON-FASTING; NON-FASTING FASTING:YES FASTING: YES GLUCOSE 93 65-99 mg/dL Fasting reference interval UREA NITROGEN (BUN) 16 7-25 mg/dL CREATININE 1.08 0.70-1.30 mg/dL EGFR 81 > OR = 60 mL/min/1.73m2 BUN/CREATININE RATIO SEE NOTE: 6-22 (calc) Not Reported: BUN and Creatinine are within reference range. SODIUM 142 135-146 mmol/L POTASSIUM 4.3 3.5-5.3 mmol/L CHLORIDE 107 98-110 mmol/L CARBON DIOXIDE 26 20-32 mmol/L CALCIUM 9.0 8.6-10.3 mg/dL PROTEIN, TOTAL 6.9 6.1-8.1 g/dL ALBUMIN 4.1 3.6-5.1 g/dL GLOBULIN 2.8 1.9-3.7 g/dL (calc) ALBUMIN/GLOBULIN RATIO 1.5 1.0-2.5 (calc) BILIRUBIN, TOTAL 1.4 0.2-1.2 mg/dL ALKALINE PHOSPHATASE 94 35-144 U/L AST 21 10-35 U/L ALT 34 9-46 U/L HEMOGLOBIN A1c (496) Reviewed date:01/20/2024 08:52:38 AM Interpretation: Performing Lab:EMILY, [employer]Book'n'Bloome1355 [facility] Systemstel Far[employer], MosaicHensZB[address] Allan Richmond Notes/Report: NON-FASTING; NON-FASTING; NON-FASTING FASTING:YES FASTING: YES HEMOGLOBIN A1c 5.7 <5.7 % of total Hgb For someone without known diabetes, a hemoglobin A1c value between 5.7% and 6.4% is consistent with prediabetes and should be confirmed with a follow-up test. For someone with known diabetes, a value <7% indicates that their diabetes is well controlled. A1c targets should be individualized based on duration of diabetes, age, comorbid conditions, and other considerations. This assay result is consistent with an increased risk of diabetes. Currently, no consensus exists regarding use of hemoglobin A1c for diagnosis of diabetes for children. This test was performed on the Megan laney c503 platform. Effective 08/20/23, a change in test platforms from the [employer]am[employer] to the Megan laney c503 may have shifted HbA1c results compared to historical results. Based on laboratory validation testing conducted at [facility], the Megan platform relative to the Lewis platform had an average increase in HbA1c value of < or = 0.3%. This difference is within accepted variability established by the National Glycohemoglobin Standardization Program. Note that not all individuals will have had a shift in their results and direct comparisons between historical and current results for testing conducted on different platforms is not recommended. HEMOGLOBIN A1c (496) Reviewed date:04/22/2024 02:30:24 PM Interpretation: Performing Lab:EMILY [facility] Rao-Sesar [place]13[address] [facility] HospitalSesarWwbkVZ[address] Allan Richmond Notes/Report: NON-FASTING; NON-FASTING; NON-FASTING FASTING:YES FASTING: YES HEMOGLOBIN A1c 5.7 <5.7 % of total Hgb For someone without known diabetes, a hemoglobin A1c value between 5.7% and 6.4% is consistent with prediabetes and should be confirmed with a follow-up test. For someone with known diabetes, a value <7% indicates that their diabetes is well controlled. A1c targets should be individualized based on duration of diabetes, age, comorbid conditions, and other considerations. This assay result is consistent with an increased risk of diabetes. Currently, no consensus exists regarding use of hemoglobin A1c for diagnosis of diabetes for children. Medications Medication SIG (Take, Route, Frequency, Duration) Notes Start Date End Date Status amLODIPine Besylate 5 MG Take 1 tablet by mouth once daily; Duration: 90 Active Furosemide 20 MG 1 tab(s) orally once a day; Duration: 30 days Active Lyrica 300 MG 1 cap(s) orally 2 times a day; Duration: 7 days Active Ventolin HFA 108 (90 Base) MCG/ACT 2 puff(s) inhaled every 6 hours; Duration: 30 days 12/18/2022 Active Breztri Aerosphere 160 MCG-4.8 MCG-9 MCG/INH 2 PUFF(S) INHALED 2 TIMES A DAY; Duration: 30 DAYS *Please review and pick correct strength-formulatio n from [employer] options. If intended option is not shown, [...] times a day; Duration: 90 days Active Percocet 7.5-325 MG 1 tab(s) orally every 6 hours prn Active Propranolol HCl 40 MG 1 tab(s) orally 2 times a day; Duration: 90 days Active Aspirin 81 MG 1 tab(s) orally once a day; Duration: 30 days Active Acyclovir 400 MG 1 tab(s) orally 3 times a day; Duration: 20 days bid Active Co Q-10 100 MG 1 cap(s) orally once a day; Duration: 30 day(s) Active Famotidine 20 MG 1 tab(s) orally 2 times a day; Duration: 90 days 08/04/2024 Active Super B-Complex - 1 tab(s) orally once a day; Duration: 30 day(s) Active Omeprazole 20 MG 1 cap(s) orally once a day; Duration: 90 days 08/04/2024 Active Immunizations Vaccine Route Administration Date Status Comme nts SHINGRIX IM Intramuscular 08/25/2024 Administered Pneumovax 23 IM Intramuscular 05/10/2019 Administered MMR-ll Unknown 08/26/2018 Administered FLUZONE 6MO - OLDER IM Intramuscular 04/12/2019 Administer ed FLUZONE 6MO - OLDER IM Intramuscular 04/21/2023 Administer ed Flublok IM Intramuscular 04/06/2020 Administered Flublok IM Intramuscular 02/05/2021 Administered Flublok IM Intramuscular 05/29/2022 Administered Flublok IM Intramuscular 04/21/2024 Administered Problems Problem Type SNOMED Code ICD Code Onset Dates Problem Status W/U Status Risk Notes Problem Mixed hyperlipidemia (353779262) Mixed hyperlipidemia (E78.2) Active confirmed Problem Essential tremor (550611827) Essential tremor (G25.0) Active confirmed Problem Polyneuropathy caused by drug (8421925) 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) Active confirmed Problem Essential hypertension (51679206) Essential (primary) hypertension (I10) Active confirmed Problem History of bone marrow transplant (3455186353053) 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) Active confirmed Problem Obese class I (finding) (875920234089605) Obesity (BMI 30.0-34.9) (E66.9) Active confirmed Problem Allergic rhinitis (41130067) Allergic rhinitis (J30.9) Active confirmed Problem Hyperlipidemia (33806160) Hyperlipemia, idiopathic familial (E78.5) Active confirmed Problem Gastroesophageal reflux disease (364892101) GERD without esophagitis (K21.9) Active confirmed Problem Body mass index 30.00 to 34.99 (767727769961753) BMI 34.0-34.9,adult (Z68.34) Active confirmed Problem Mild intermittent asthma (867410505) Mild intermittent asthma without complication (J45.20) Active confirmed Problem Obstructive sleep apnea (48512930) Obstructive sleep apnea (G47.33) Active confirmed Problem Daytime somnolence (507768220378) Daytime somnolence (R40.0) Active confirmed Problem Plasmacytoma, 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 Problem Snores (48234977) Snores (R06.83) Active confir med Problem Exacerbation of moderate persistent asthma (disorder) (857435159) Moderate persistent asthma with exacerbation (J45.41) Active confirmed Vital Signs Heart Rate 72 /min 12/01/2024 Temperature 97.7 degrees Fahrenheit 12/01/2024 Blood pressure diastolic 76 mm Hg 12/01/2024 Height 6 ft in 12/01/2024 Blood pressure systolic 102 mm Hg 12/01/2024 Weight 266 lbs 12/01/2024 BMI 36.07 kg/m2 12/01/2024 Encounters Encounter Location Date Provider Diagnosis [facility] [address] [place] [address] 09/18/2024 Provider Migration [facility] [address] [facility] [address] [place] [address] 01/14/2024 [place] Hyperglycemia R73.9 ; Essential tremor G25.0 ; Mixed hyperlipidemia E78.2 ; Moderate persistent asthma with exacerbation J45.41 ; Snores R06.83 and Essential (primary) hypertension I10 [facility] [address] [place] [address] 04/21/2024 Van Besson Essential tremor G25 .0 ; Hyperglycemia R73.9 ; Mixed hyperlipidemia E78.2 ; Moderate persistent asthma with exacerbation J45.41 ; Essential (primary) hypertension I10 ; SEVEN on CPAP G47.33 ; Immunization(s) administered Z23 and Routine medical exam Z00.00 [facility] [address] [place], [place] [address] 08/04/2024 Van Besson Obstructive sleep apnea G47.33 ; Essential (primary) hypertension I10 ; Dyspnea on effort R06.09 ; GERD without esophagitis K21.9 and Varicella zoster B02.9 [facility] [address] [place], [place] [address] 08/25/2024 Van Besson Essential (primary) hypertension I10 ; Shortness of breath R06.02 ; Lower extremity edema R60.0 ; Healthcare maintenance Z00.00 and Encounter for immunization Z23 [facility] [address] [place], [place] [address] 09/01/2024 Van Besson SOB (shortness of breath) R06.02 and Acute cough R05.1 [facility] [address] [place] [address] 09/29/2024 Van Besson Dyspnea on effort R06.09 [facility] [address] [place] [address] 12/01/2024 Van Paris Drug-induced polyneuropathy G62.0 ; Mild intermittent asthma without complication J45.20 ; Obstructive sleep apnea G47.33 ; GERD without esophagitis K21.9 and Dyspnea on effort R06.09 [facility] [place] [address] [facility] [address] [place] [address] 07/01/2024 Van Paris Essential tremor G25 .0 [facility] [address] [place] [address] 07/15/2024 Van Paris Assessments Encounter Date Diagnosis (ICD Code) Assessment Notes Treatment Notes Treatment Clinical Notes Section Notes 01/14/2024 Essential tremor (ICD-10 - G25.0) Tremor vastly improved on higher dose of propranolol. Please see notes below about blood pressure 01/14/2024 Hyperglycemia (ICD-10 - R73.9) Overall patient is doing well, but has had a couple of glucose elevations on labs that I reviewed from the hospital. Recheck this today and check A1c to make sure he is not developing prediabetes or diabetes. 04/21/2024 Essential tremor (ICD-10 - G25.0) - Tremor vastly improved on higher dose of propranolol, continues to report tolerating well. - 04/21/2024 Hyperglycemia (ICD-10 - R73.9) - prediabetes with last A1c 5.7% - no current therapy, discussed diet and lifestyle modifications - obtaining repeat Hgb A1c today 07/01/2024 Essential tremor (ICD-10 - G25.0) 08/04/2024 Essential (primary) hypertension (ICD-10 - I10) Blood pressure under good control. No changes in plan 08/04/2024 Obstructive sleep apnea (ICD-10 - G47.33) Overall patient is doing well. I am happy with his response to the CPAP. He is benefiting from the device. I recommend this continue 08/25/2024 Essential (primary) hypertension (ICD-10 - I10) BP well controlled in office today. Continue current regimen. 08/25/2024 Shortness of breath (ICD-10 - R06.02) CT chest normal, PFTs normal, dyspnea slightly improved w CPAP use. Given LE edema, will obtain echo to evaluate for cardiac structural causes of dyspnea. 09/01/2024 SOB (shortness of breath) (ICD-10 - R06.02) Echo ordered last visit, pending. Will obtain CXR and resp viral panel to evaluate for pneumonia vs CHF exacerbation given symptoms. 09/01/2024 Acute cough (ICD-10 - R05.1) Most suspect viral URI. Respitatory virus panel ordered. Can continue symptomatic care. Will follow up CXR and respiratory virus panel and review results. 09/29/2024 Dyspnea on effort (ICD-10 - R06.09) Stay on medications. pulmonary appointment pending. Given his complex history of multiple myeloma, dyspnea and restrictive lung pattern. 12/01/2024 Drug-induced polyneuropathy (ICD-10 - G62.0) Patient has been compliant with our office and [place] regulations r.e. meds. No concerns on my part about diversion or misuse. Labs and Charlie reports reviewed and are appropriate. 12/01/2024 Mild intermittent asthma without complication (ICD-10 - J45.20) On inhaler, PFT is normal. No changes in plan 12/01/2024 Obstructive sleep apnea (ICD-10 - G47.33) Doing well with CPAP, no changes 08/25/2024 Lower extremity edema (ICD-10 - R60.0) 2+, bilateral LE. Could be 2/2 amlodipine but given progressive nature over last 2 years and concurrent dyspnea will obtain echo and start lasix daily. 08/04/2024 Dyspnea on effort (ICD-10 - R06.09) Unconcerned about his ongoing dyspnea. He is on aggressive inhaler therapy. Will repeat PFTs and get a CT scan noncontrast to evaluate for possible fibrosis or other inflammatory causes given his history of myeloma 04/21/2024 Mixed hyperlipidemia (ICD-10 - E78.2) - Last Lipid panel showing total cholesterol 195, LDL 127, HDL 45 - no longer a smoker, no history of [place] or CVA, on amlodipine for HTN, also propranolol for tremor but has BP effects - 10-year ASCVD risk ~ 6% - ordering repeat lipid panel today, pending results may need to discuss starting statin at next follow up 01/14/2024 Mixed hyperlipidemia (ICD-10 - E78.2) Has not had lipid profile in quite a while. Check labs. Please note I will review all labs personally 01/14/2024 Moderate persistent asthma with exacerbation (ICD-10 - J45.41) Patient is using triple inhaler twice daily but not using a spacer. Discussed spacer rationale and explained use to patient. Prescription written for spacer. He will let me know if he is not able to get 1. If this does not help his problem we may need to repeat PFTs 08/04/2024 GERD without esophagitis (ICD-10 - K21.9) Doing well on omeprazole and famotidine. No changes 08/25/2024 Healthcare maintenance (ICD-10 - Z00.00) UTD on labs, colonosocopy. Quit smoking >20 years ago. counseled on healthy diet and exercise. Will give shingles vaccine today and consider PCV 21 at next visit. Reviewed HRA with patient. No concerns. / word recall. Otherwise up-to-date with healthcare maintenance 04/21/2024 Moderate persistent asthma with exacerbation (ICD-10 - J45.41) - Patient is using triple inhaler twice daily, reports improvement in symptoms since adding spacer, ventolin inhaler, as needed inhaler when working in hay, and takes singulair daily - instructed to continue at this time, provided refills, will reassess symptoms at follow up 12/01/2024 GERD without esophagitis (ICD-10 - K21.9) Stable on current therapy, eating well. 12/01/2024 Dyspnea on effort (ICD-10 - R06.09) cardiology evaluation continues. Will follow. Follow-up after cardiac MRI 08/25/2024 Encounter for immunization (ICD-10 - Z23) 08/04/2024 Varicella zoster (ICD-10 - B02.9) Has recurrent outbreaks. Will refill acyclovir 04/21/2024 Essential (primary) hypertension (ICD-10 - I10) - Blood pressure very well-controlled, slightly below 120. continue on amlodipine and moniroting BP while on propranolol for essential tremor 01/14/2024 Snores (ICD-10 - R06.83) Patient has not been contacted again by sleep study folks. We will get this done 01/14/2024 Essential (primary) hypertension (ICD-10 - I10) Blood pressure very well-controlled, slightly below 120. Discussed with patient that if he gets woozy or blood pressure is persistently below 110 he should cut his amlodipine dose in half. 04/21/2024 SEVEN on CPAP (ICD-10 - G47.33) - followed with sleep medicine, diagnosed with SEVEN - reports good adhereance with nightly CPAP 04/21/2024 Immunization(s) administered (ICD-10 - Z23) 04/21/2024 Routine medical exam (ICD-10 - Z00.00) Overall doing very nicely. Up-to-date with vaccinations. Up-to-date with colon screening. Follows oncology. Weight improving. Depression screening negative. Healthcare surrogate in place. Check labs as noted above. Plan Of Treatment Pending Test Test Name Order Date X-Lipid Profile 06/22/2008 N-CMP 06/22/2008 CT Scan : Lumbar Spine 08/31/2015 H-CBC with AUTO DIFF 06/26/2017 H-BMP 06/26/2017 spirometry 10/26/2012 H-PTT 08/31/2015 Pulmonary Function Test- Complete 2024 H-UPPER RESP. PCR 06/26/2017 M-Upper Respiratory Panel, PCR Future Test Test Name Order Date M-Comprehensive Metabolic Panel 02/15/20 20 M-Lipid Panel 02/15/2020 Next Appt Details Provider Name:Van Lionmarkus Paris, 03/09/2025 08:45:00 AM, [address] [facility] [address] [facility], [address], [place], [address], Insurance Providers Payer Name Payer Address Payer Phone Subscriber Number Group Number Insured Name Patient Relationship to Insured Coverage Start Date Coverage End Date [employer] [address] [address] [place] [address] [phone] [id number] Luis Miguel Wright Self - patient is the insured Medications Administered Medication Instructions Date of Administration Dosage Notes Ceftriaxone 500 07/19/2016 500 mg Dexamethasone 4mg Injection 07/28/2023 4 mg Kenalog 40mg 09/22/2017 40 mg Kenalog 10/26/2012 1 Kenalog 08/28/2015 1 mL Kenalog 07/02/2016 1 mL Kenalog 07/19/2016 1 mL Medical (General) History Medical History History ICD Code Hypertension asthma tremors/anxiety chest pain with negative Car diolite stress test in September 2012, 78% ejection fraction Multiple myeloma s/p BMT Low-dose CT scan February 2023 wnl colonoscopy 2018 normal Surgical History Surgery Date(Month/Year) Hospitalization History Reason Date(Month/Year)
--- OUTSIDE RECORDS SUMMARY | 2024-12-21 15:06 | XMS_ITS | Encounter Summary ---
Author Organization [facility] Address [address] [id number] Care Team Providers Care Hydraulic Chair Assembler Name Role Phone Vna Paris MD Primary Care Provider [phone] Encounter Details Date Type Department Care Team (Late st Contact Info) Description 11/15/2024 Results Follow-Up [facility] [place] [address] [facility] [place] [id number] Yolanda Whitman APRN [address] [place] [address] Social History Tobacco Use Types Packs/Day Years [...] on file documented as of this encounter Miscellaneous Notes * Result Encounter Note - Yolanda Whitman APRN - 11/15/2024 1:42 PM EDT Spoke with patient via phone regarding CPX results. Overall normal. Dr. Gates recommends CMR for further evaluation of dilated RV. Patient would like to have this done in [place]. Order placed. Daphne Whitman APRN documented in this encounter Plan of Treatment Upcoming Encounters Date Type Department Care Team (Late st Contact Info) Description 01/25/2025 3:40 PM EDT Office Visit [facility] [place] [address] [facility] [place] [address] Jevon Gates MD [address] [place] [address] 03/01/2025 10:30 AM EDT Appointment [facility] [address] [place] [address] 10/05/2025 11:00 AM EDT Clinical Support [facility] Hematology/BMT and Cellular Therapy Program [address] [facility], [address] [place] [address] [place] [address] 10/05/2025 11:30 AM EDT Office Visit [facility] [address] [facility], [facility] [place] [address] Hailey La, SUPERVISOR DIALS [address] [facility] [address] [place] [address] documented as of this encounter Visit Diagnoses Not on filedocumented in this encounter Additional Health Concerns Assessment Noted Time A fall risk assessment has been complete d for the patient 10/26/2024 2:41 PM EDT A Body Mass Index follow-up plan has been documented for the patient 10/26/2024 4:03 PM EDT documented as of this encounter Care Teams Hydraulic Chair Assembler Relationship Specialty Start Date End Date Van Paris MD [address] [place] [address] [place] [address] PCP - General 10/27/20 documented as of this encounter
[2024-12-21 15:54] LABS: Hematocrit 45.9 % (42.0-52.0); Hemoglobin 15.1 g/dL (14.1-18.0); Immature Granulocytes % 0.3 %; Mean Corpuscular HGB Conc 32.9 g/dL (31.8-35.4); Mean Corpuscular Hemoglobin 31.1 pg (27.0-31.2); Mean Corpuscular Volume 94.4 fl (80-94); Nucleated Red Blood Cells % 0 %; Platelet Count 181 K/mm3 (142-424); Red Blood Count 4.86 M/mm3 (4.60-6.20); Red Cell Distribution Width-SD 46.1 fL; White Blood Count 5.8 K/mm3 (4.8-10.8)
[2024-12-21 16:36] LABS: Albumin Level 4.1 g/dl (3.5-5.0); Chloride 101 mmol/L (98-107); Potassium 4.0 mmoL/L (3.5-5.1); Sodium 140 mmol/L (136-145)
[2024-12-21 16:39] LABS: Alanine Aminotransferase 27 U/L (12-78); Albumin/Globulin Ratio 1.4 (1.1-1.8); Alkaline Phosphatase 105 U/L (38-126); Anion Gap 15.0 mEq/L (5-15); Aspartate Amino Transferase 28 U/L (17-59); Bilirubin,Total 1.1 mg/dl (0.2-1.3); Blood Urea Nitrogen 14 mg/dl (9-20); Calcium 9.2 mg/dl (8.4-10.2); Carbon Dioxide 28 mmol/L (22.0-30.0); Creatinine,Serum 1.00 mg/dl (0.66-1.25); Estimated Glomerular Filt Rate 77 ml/min (>60); GFR (African American) 94 ML/MIN (>60); Globulin 3.0 g/dL (1.3-3.2); Glucose 66 mg/dl (74-100); Total Protein,Serum 7.1 g/dl (6.3-8.2)
[2024-12-22 16:20] LABS: Albumin 3.4 g/dL (2.9-4.4); Alpha-1-Globulin 0.3 g/dL (0.0-0.4); Alpha-2-Globulin 0.9 g/dL (0.4-1.0); Gamma Globulin 1.1 g/dL (0.4-1.8)
[2024-12-23 16:25] LABS: Immunoglobulin A, Qn 319 mg/dL (90-386); Immunoglobulin G, Qn 1155 mg/dL (603-1613); Immunoglobulin M, Qn 45 mg/dL (20-172)
[2024-12-24 09:07] LABS: PDF SCANNED IMAGE
== END 2024-12-21 23:59 | disposition home or self-care (01) ==
LOC: LAB 15:02
PROVIDERS: PCP Internal Medicine Adolescent Medicine; Visit Provider Internal Medicine Medical Oncology
DX: C90.00 Multiple myeloma not having achieved remission (principal)
CPT/HCPCS: 36415; 80053; 82784; 83521; 84155; 84165; 85025; 86334